=== PATIENT | female | born 1985 | race Caucasian/White ===

== ENCOUNTER 2023-09-16 08:24 | Outpatient (OUT) | payer OTHER, SELFPAY ==
[2023-09-16 11:16] LABS: Alanine Aminotransferase 24 U/L (14-59); Albumin Globulin Ratio 1.3; Albumin Level 3.8 g/dL (3.4-5.0); Alkaline Phosphatase 71 U/L (46-116); Anion Gap 12.9; Aspartate Amino Transferase 10 U/L (15-37); BUN Creatinine Ratio 20.6; Bilirubin Total 0.8 mg/dL (0.2-1.0); Carbon Dioxide 28.1 mmol/L (21.0-32.0); Chloride 102 mmol/L (98-107); Chol HDL Ratio 2.2; Cholesterol 157 mg/dL (<=200); Estimated GFR (African America >60 (>=60); Estimated GFR (Non-African Ame >60 (>=60); Glucose 79 mg/dL (74-106); HDL Cholesterol 72 mg/dL (40-60); Sodium 139 mmol/L (136-145); TSH W/ REFLEX FT4 1.511 uIU/mL (0.358-3.740); Total Protein 6.8 g/dL (6.4-8.2); Triglycerides 72 mg/dL (<=150); VLDL CHOLESTEROL 14.4 mg/dL
== END 2023-09-16 08:25 | disposition home or self-care (01) ==
PROVIDERS: PCP Nurse Practitioner Family; Visit Provider Nurse Practitioner Family
DX: Z00.00 Encounter for general adult medical examination without abnormal findings (principal); E66.9 Obesity, unspecified; Z13.220 Encounter for screening for lipoid disorders
CPT/HCPCS: 36415; 80053; 80061; 84443

== ENCOUNTER 2023-11-23 23:32 | Emergency (ER) | payer OTHER, SELFPAY ==
[2023-11-23 23:37] VITALS: BP 167/96; PULSE 62; TEMP 36.7; O2SAT 98; BMI 32.1
--- NOTE | 2023-11-23 23:42 | ED_ITS ---
HPI - Nausea/Vomiting/Diarrhea General Chief complaint: Nausea/Vomiting/Diarrhea Stated complaint: vomiting general weakness Time Seen by Provider: 11/23/23 23:33 Source: patient Mode of arrival: walk-in Limitations: no limitations History of Present Illness HPI Narrative: 38-year-old female presented to the emergency department for nausea and vomiting. She has been having the symptoms for about 24 hours. No diarrhea or fever. She has not been around anybody has been vomiting. She thinks she might have food poisoning. Related Data Home Medications ?Medication ?Instructions ?Recorded ?Confirmed bupropion HCl 150 mg 24 hr tablet, mg PO 11/23/23 extended release dextroamphetamine-amphetamine ER PO 11/23/23 30 mg 24hr capsule,extend release Previous Rx's ?Medication ?Instructions ?Recorded ondansetron 4 mg disintegrating 4 mg PO Q6H PRN nausea and 11/24/23 tablet vomiting #20 tabs Allergies Allergy/AdvReac Type Severity Reaction Status Date / Time No Known Drug Allergies Allergy Verified 11/23/23 23:42 Review of Systems ROS Narrative A ten point review of systems is negative except as noted above. Exam Narrative Exam Narrative: Nurses note and vital signs reviewed and patient is not hypoxic. General: The patient appears in no apparent distress. Skin: Warm, dry, no pallor noted. There is no rash noted. Head: Normocephalic, atraumatic Eye: Normal conjunctiva, no drainage Ears, Nose, Mouth, and Throat: oral mucosa is moist. Nares patent. Cardiovascular: Regular Rate and Rhythm Respiratory: Patient is in no distress, no accessory muscle use, lungs are clear to auscultation, no wheezing, rales or rhonchi Back: non-tender GI: Normal bowel sounds, no tenderness to palpation, no masses appreciated. No rebound, guarding, or rigidity noted. Musculoskeletal: The patient has no evidence of calf tenderness, no pitting edema, symmetrical pulses noted bilaterally Neurological: Awake and alert Psychiatric: Cooperative Constitutional Vital Signs, click to edit/add: Last Vital Signs Temp 98.1 F 11/23/23 23:37 Pulse 62 11/23/23 23:37 Resp 16 11/23/23 23:37 BP 167/96 H 11/23/23 23:37 Pulse Ox 98 11/23/23 23:37 O2 Del Method Room Air 11/23/23 23:37 Course Vital Signs Vital signs: Vital Signs Temperature 98.1 F 11/23/23 23:37 Pulse Rate 62 11/23/23 23:37 Respiratory Rate 16 11/23/23 23:37 Blood Pressure 167/96 H 11/23/23 23:37 Pulse Oximetry 98 11/23/23 23:37 Oxygen Delivery Method Room Air 11/23/23 23:37 Temperature 98.1 F 11/23/23 23:37 Pulse Rate 62 11/23/23 23:37 Respiratory Rate 16 11/23/23 23:37 Blood Pressure 167/96 H 11/23/23 23:37 Pulse Oximetry 98 11/23/23 23:37 Oxygen Delivery Method Room Air 11/23/23 23:37 MDM - Nausea/Vomiting/Diarrhea MDM Narrative Medical decision making narrative: Blood work is essentially. She is feeling improved after being given IV fluids and IV Zofran and is able to be discharged home. She is tolerating p.o. liquids. Treatment diagnosis and follow-up were discussed with the patient. Differential Diagnosis Differential diagnosis: Likely food poisoning, gastroenteritis and dehydration Lab Data Attestation: I reviewed the patient's lab results. Labs: Lab Results 11/23/23 Range/Units 23:50 WBC 12.5 H (4.0-11.0) 10^3/uL RBC 4.72 (4.20-5.40) 10^6/uL Hgb 14.1 (12.0-16.0) g/dL Hct 41.2 (36.0-48.0) % MCV 87.3 (81.0-99.0) fL MCH 29.9 (26.7-34.0) pg MCHC 34.2 (29.9-35.2) g/dL RDW 12.3 (11.0-15.0) % Plt Count 359 (150-450) 10^3/uL MPV 10.0 (9.5-13.5) fL Neut % (Auto) 84.0 H (43.0-75.0) % Lymph % (Auto) 10.8 L (20.5-60.0) % [place] % (Auto) 4.5 (1.7-12.0) % Eos % (Auto) 0.1 L (0.9-7.0) % Baso % (Auto) 0.2 (0.2-2.0) % Neut # (Auto) 10.5 H (1.4-6.5) 10^3/uL Lymph # (Auto) 1.4 (1.2-3.8) 10^3/uL [place] # (Auto) 0.6 (0.3-0.8) 10^3/uL Eos # (Auto) 0.0 (0.0-0.7) 10^3/uL Baso # (Auto) 0.0 (0.0-0.1) 10^3/uL Abs Immat Gran (auto) 0.05 H (0.00-0.03) 10^3/uL Imm/Tot Granulo (auto) 0.4 (0.0-0.5) % Sodium 139 (136-145) mmol/L Potassium 3.3 L (3.5-5.1) mmol/L Chloride 100 (98-107) mmol/L Carbon Dioxide 24.8 (21.0-32.0) mmol/L Anion Gap 17.5 BUN 13.0 (7.0-18.0) mg/dL Creatinine 0.77 (0.55-1.02) mg/dL Est GFR ( Amer) >60 (>=60) Est GFR (Non-Af Amer) >60 (>=60) BUN/Creatinine Ratio 16.9 Glucose 149 H (74-106) mg/dL Calcium 9.2 (8.5-10.1) mg/dL Discharge Plan Discharge Stand Alone Forms: Portal Instructions Chief Complaint: Nausea/Vomiting/Diarrhea Clinical Impression: Nausea and vomiting Patient Disposition: Home, Self-Care Time of Disposition Decision: 01:01 Condition: Good Mode of Transportation: Private Vehicle Prescriptions / Home Meds: New ondansetron 4 mg tablet,disintegrating 4 mg PO Q6H PRN (Reason: nausea and vomiting) Qty: 20 0RF No Action dextroamphetamine-amphetamine 30 mg capsule,extended release 24hr PO bupropion HCl 150 mg tablet extended release 24 hr PO Print Language: Kinyarwanda Instructions: Acute Nausea and Vomiting (ED) Referrals: Sandra Granda [employer] [Primary Care Provider] - 1 week
--- OUTSIDE RECORDS SUMMARY | 2023-11-23 23:42 | XMS_ITS | CCD ---
Author Organization [facility] Care Team Providers Care Document Imaging Manager Name Role Phone Kasey Arie Unavailable Unavailable Kasey Arie Unavailable Unavailable Danny Urena Unavailable DUNG HERNANDEZ Admitting Unavailable DUNG HERNANDEZ Attending Unavailable REQUEST, DR ROSALES LISTED Primary Care Unavaila DUNG Hassan Consulting Unavailable SOURAV, DR SAENZ Primary Care Unavailable REINECK, DR WILFREDO Ramirez Admitting Unavailabl e REINECK, DR WILFREDO Ramirez Attending Unavailabl e REINECK, DR WILFREDO Ramirez Consulting Unavailabl e READER, ELISEO Consulting Unavailable SOURAV, DR SAENZ Primary Care Unavailable HAY ., DR NIETO Admitting Unavailable HAY ., DR NIETO Attending Unavailable HAY ., DR NIETO Consulting Unavailable MISAEL ., DR DE LUNA Admitting Unavailable MISAEL ., DR DE LUNA Attending Unavailable HOUSE, DR SAENZ Primary Care Unavailable MISAEL ., DR DE LUNA Consulting Unavailable MISAEL ., DR DE LUNA Admitting Unavailable MISAEL ., DR DE LUNA Attending Unavailable HOUSE, DR SAENZ Primary Care Unavailable MISAEL ., DR DE LUNA Consulting Unavailable SAMUEL BRIDGES Attending Unavailable ALFRED VEGA Attending Unavailable SAMUEL BRIDGES Attending Unavailable Allergies Allergy Classification Reported Allergen(s) Allergy Type Date of Onset Reaction(s) Facility (1 source) A & D Drug allergy Unknown [facility] Other (1 source) bee venom Drug allergy (disorder) [facility] (1 source) A AND D Emollient Drug allergy (disorder) [facility] Medications Current Medications Medication Drug Class(es) Dates Sig (Normalized) Sig (Original) ibuprofen 800 mg oral tablet (2 sources) Nonsteroidal Anti-inflammatory Drug Start: 01-20-2021 take 1 tablet by mouth three times daily at mealtime as needed Ibuprofen 800 MG 1 tablet with food or milk as needed Orally Three times a day for 30 days Dec, Active Ibuprofen Active Problems Active Problems Problem Classification Problem Date Documented Da te Episodic/Chronic E Codes: Cut/pierceb (1 source) Contact with knife, initial encounter; Translations: [CONTACT WITH KNIFE INITIAL ENC] Onset: 09-06-2022 Episodic Open wounds of extremities (4 sources) Laceration without foreign body of left thumb without damage to nail, initial encounter; Translations: [LAC NO FB LT THUMB NO DMG NAIL INIT] Onset: 09-04-2022 Episodic Screening and history of mental health and substance abuse codes (1 source) Personal history of nicotine dependence; Translations: [PERSONAL HISTORY OF NICOTINE DEPEND] Onset: 09-06-2022 Episodic Past or Other Problems Problem Classification Problem Date Documented Date Episodic/Chronic E Codes: Fall (1 source) Unspecified fall, initial encounter; Translations: [UNSPECIFIED FALL INITIAL ENCOUNTER] Onset: 06-07-2022 Episodic E Codes: Unspecified (1 source) Activity, roller skating (inline) and skateboarding; Translations: [ACTV ROLLER SKATING SKATEBOARDING] Onset: 06-07-2022 Episodic Genitourinary symptoms and ill-defined conditions (3 sources) Dysuria; Translations: [DYSURIA] Onset: 10-01-2021 Episodic Immunizations and screening for infectious disease (1 source) Encounter for screening for human papillomavirus (HPV); Translations: [ENC SCREENING HUMAN PAPILLOMAVIRUS] Onset: 10-15-2021 Episodic Other endocrine disorders (4 sources) Endocrine disorder, unspecified; Translations: [ENDOCRINE DISORDER UNSPECIFIED] Onset: 03-27-2022 Episodic Other non-traumatic joint disorders (1 source) Pain in left wrist; Translations: [Acute pain of left wrist M25.532] Onset: 01-20-2021 Resolved: 01-20-2021 Episodic Other non-traumatic joint disorders (3 sources) Pain in right wrist; Translations: [PAIN IN RIGHT WRIST] Onset: 06-06-2022 Episodic Other screening for suspected conditions (not mental disorders or infectious disease) (4 sources) Encounter for screening for malignant neoplasm of cervix; Translations: [ENC SCREENING MALIG NEOPLASM CERV] Onset: 10-15-2021 Episodic Residual codes; unclassified (1 source) Acquired absence of both cervix and uterus; Translations: [ACQUIRED ABSENCE BOTH CERVIX AND UTERUS] Onset: 10-02-2021 Episodic Sprains and strains (2 sources) Unspecified sprain of left wrist, initial encounter; Translations: [Unspecified sprain of right wrist, initial encounter] Onset: 01-20-2021 Resolved: 01-20-2021 Episodic Urinary tract infections (1 source) Urinary tract infection, site not specified; Translations: [UTI SITE NOT SPECIFIED] Onset: 10-02-2021 Episodic Results Test Name Value Interpretation Reference Range Facil ity XR WRIST RT MIN 3 Von 2022 XR WRIST RT MIN 3 V HISTORY: Right wrist pain after a fall rollerskating last night. XR WRIST RT MIN 3 V: 06/06/2022 8:46 AM EST COMPARISON: None. FINDINGS: 3 views of right wrist were obtained. No fracture, dislocation, joint space narrowing, or soft tissue swelling is seen. IMPRESSION: No fracture or dislocation is seen. Electronically authenticated by: ELISEO PATEL Date: 2022-06-06 09:14 Normal [facility] TESTOSTERONE, FREE,DIRECT, T OTALon 03-31-2022 Free Testosterone(Direct) 2.8 pg/mL Normal 0.0-4.2 [facility] Comment on above: Result Comment: Perf ormed at: BN Performed By: #### T ESTFRD #### [facility] [address] [address] [address] Jorge Munoz Testosterone [Mass/Vol] 32 ng/dL Normal 8-60 [facility] Comment on above: Result Comment: Perf ormed at: CB Performed By: #### T ESTFRD #### [facility] [address] [address] [address] Jorge Munoz CORTISOLon 03-30-2022 Cortisol 11.0 ug/dL Normal [facility] Comment on above: Result Comment: Rosalino isol AM 6.2 - 19.4 Cortisol PM 2.3 - 11.9 Performed By: #### C ORTISO #### [facility] [address] [place] [address] Dr. Jorge Munoz ESTRONEon 03-30-2022 Estrone, Serum 116 pg/mL Normal 27-231 [facility] Comment on above: Result Comment: Rang e Adult (Premenopausal) 27 - 231 Menstrual Cycle (1-10 days) 19 - 149 Menstrual Cycle (11-20 days) 32 - 176 Menstrual Cycle (21-30 days) 37 - 200 Performed By: #### E MEL #### [facility] [address] [place], [place] [address] Dr. Jorge Munoz DHEA-SULFATEon 03-28-2022 DHEA-Sulfate 229.0 ug/dL Normal 57.3-279.2 [facility] Comment on above: Performed By: #### D HEMAGGIE ####[facility] [address] [place], [place] [address]DbDr. Jorge Munoz ESTRADIOLon 03-28-2022 Estradiol 278.0 pg/mL Normal [facility] Comment on above: Result Comment: Adul t Female: Follicular phase 12.5 - 166.0 Ovulation phase 85.8 - 498.0 Luteal phase 43.8 - 211.0 Postmenopausal <6.0 - 54.7 1st trimester 215.0 - >4300.0 [place] ECLIA methodology Performed By: #### E DAVON ####[facility] [address] [address]Dr. Jorge Munoz PROGESTERONEon 03-28-2022 Progesterone 13.9 ng/mL Normal [facility] Comment on above: Result Comment: Foll icular phase 0.1 - 0.9 Luteal phase 1.8 - 23.9 Ovulation phase 0.1 - 12.0 First trimester 11.0 - 44.3 Second trimester 25.4 - 83.3 Third trimester 58.7 - 214.0 Postmenopausal 0.0 - 0.1 Performed By: #### P INGE #### [facility] [address] [place], [place] [id number] Dr. Jorge Munoz SEX HORMONE-BINDING GLOBULIN on 03-28-2022 Sex Horm Binding Glob, Serum 66.0 nmol/L Normal 24.6-122.0 [facility] Comment on above: Performed By: #### S EXHBG #### [facility] [address] [id number] Jorge Munoz VITAMIN D 25 OHon 03-27-2022 VIT D 25-OH 31.2 ng/mL Normal [facility] Comment on above: Performed By: #### V ITAD #### [facility] [address] [address] [address] Jorge Munoz VIT D RANGES SEE BELOW Normal [facility] Comment on above: Result Comment: <20 ng/mL Vit D deficient 20 - <30 ng/mL Vit D insufficient 30 - 100 ng/mL Vit D sufficient >100 ng/mL Potential Toxicity Performed By: #### V ITAD #### [facility] [address] [place] [address] Dr. Jorge Munoz PAP ACOG PANEL 2: 30 to 65on 10-19-2021 . . Normal [facility] Comment on above: Result Comment: Perf ormed at: WB Performed By: #### [id number] #### [facility] [address] [place] [address] Dr. Jorge Munoz Age Gdln ACOG Testing 30-65 Normal [facility] Comment on above: Performed By: #### [id number] #### [facility] [address] [place] [address] Dr. Jorge Munoz DIAGNOSIS: Comment Normal [facility] Comment on above: Result Comment: NEGA TIVE FOR INTRAEPITHELIAL LESION OR MALIGNANCY. Performed at: WB Performed By: #### [id number] #### [facility] [address] [place] [address] Dr. Jorge Munoz HPV Aptima Negative Normal Negative [facility] Comment on above: Result Comment: This nucleic acid amplification test detects fourteen high-risk HPV types (16,18,31,33,35,39,45,51,52,56,58,59,66,68) without differentiation. Performed at: =G Performed By: #### 4 [id number] #### [facility] [address] [place] [address] Dr. Jorge Munoz Methodology: Comment Normal [facility] Comment on above: Result Comment: This liquid based ThinPrep(R) pap test was screened with the use of an image guided system. Performed at: WB Performed By: #### [id number] #### [facility] [address] [place] [address] Dr. Jorge Munoz Note: Comment Normal [facility] Comment on above: Result Comment: The Pap smear is a screening test designed to aid in the detection of premalignant and malignant conditions of the uterine cervix. It is not a diagnostic procedure and should not be used as the sole means of detecting cervical cancer. Both false-positive and false-negative reports do occur. . Performed at: WB Performed By: #### [id number] #### [facility] [address] [place] [address] Dr. Jorge Munoz Performed by: Comment Normal [facility] Comment on above: Result Comment: Alyson De La Cruz, Oil Lease Buyer (ASCP) Performed at: WB Performed By: #### [id number] #### [facility] [address] [place] [address] Dr. Jorge Munoz Specimen adequacy: Comment Normal [facility] Comment on above: Result Comment: Sati sfactory for evaluation. No endocervical component is identified. Performed at: WB Performed By: #### [id number] #### [facility] [address] [place] [address] Dr. Jorge Munoz ER URINE PROFILEon 2 Bilirubin Ql (U) Negative Normal NEGATIVE [facility] Comment on above: Performed By: #### PATRICK BIRDRO #### [facility] [address] [place] [address] Dr. Jorge Munoz Clarity (U) CLEAR Normal CLEAR [facility] Comment on above: Performed By: #### ALAN BIRDICRO #### [facility] [address] [place] [address] Dr. Jorge Munoz Color (U) LT. YELLOW Normal YELLOW [facility] Comment on above: Performed By: #### PATRICK BIRDRO #### [facility] [address] [place] [address] Dr. Jorge Munoz ERUAHD A micrscopic examination will be performed if indicated. Normal [facility] Comment on above: Performed By: #### PATRICK BIRDRO #### [facility] [address] [place] [address] Dr. Jorge Munoz Glucose Ql (U) Negative Normal NEGATIVE [facility] Comment on above: Performed By: #### Marvin HADDAD UMICRO #### [facility] [address] [address] [address] Jorge Munoz Hemoglobin Ql (U) MODERATE Abnormal NEGATIVE [facility] Comment on above: Performed By: #### Marvin HADDAD, UMICRO #### [facility] [address] [address] [address] Jorge Munoz Ketones Ql (U) Negative Normal NEGATIVE [facility] Comment on above: Performed By: #### Marvin HADDAD UMICRO #### [facility] [address] [place] [address] Dr. Jorge Munoz LEUKOCYTES TRACE Abnormal NEGATIVE [facility] Comment on above: Performed By: #### Marvin HADDAD UMICRO #### [facility] [address] [place] [address] Dr. Jorge Munoz Nitrite Ql (U) Negative Normal NEGATIVE [facility] Comment on above: Performed By: #### Marvin HADDAD UMICRO #### [facility] [address] [place] [address] Dr. Jorge Munoz pH (U) 6.0 [pH] Normal 5-9 [facility] Comment on above: Performed By: #### Marvin HADDAD UMICRO #### [facility] [address] [place] [address] Dr. Jorge Munoz SPEC GRAVITY 1.025 Normal 1.005-<=1.025 [facility] Comment on above: Performed By: #### Marvin HADDAD UMICRO #### [facility] [address] [place] [address] Dr. Jorge Munoz UA PROTEIN Negative Normal NEGATIVE/ TRACE [facility] Comment on above: Performed By: #### Marvin HADDAD UMICRO #### [facility] [address] [place] [address] Dr. Jorge Munoz UR MICRO IND INDICATED Normal [facility] Comment on above: Performed By: #### Marvin HADDAD UMICRO #### [facility] [address] [place] [address] Dr. Jorge Munoz Urobilinogen Qn (U) 0.2 {Darren'U}/dL Normal 0.2 - 1. 0 [facility] Comment on above: Performed By: #### Marvin HADDAD UMICRO #### [facility] [address] [place] [address] Dr. Jorge Munoz URINE MICROSCOPIC ONLYon BACTERIA NONE SEEN Normal NONE SEEN [facility] Comment on above: Performed By: #### Marvin HADDAD, UMICRO #### [facility] [address] [place] [address] Dr. Jorge Munoz Bacteria identified Cx Nom (U) NOT INDICATED Normal [facility] Comment on above: Performed By: #### Marvin HADDAD UMICRO #### [facility] [address] [place] [address] Dr. Jorge Munoz CAST NONE SEEN Normal NONE SEEN [facility] Comment on above: Performed By: #### Marvin HADDAD UMICRO #### [facility] [address] [place] [address] Dr. Jorge Munoz Crystals LM Nom (Urine sed) NONE SEEN Normal NONE SEEN [facility] Comment on above: Performed By: #### Marvin HADDAD UMICRO #### [facility] [address] [place] [address] Dr. Jorge Munoz Epithelial cells LM Ql (Urine sed) MANY Abnormal NONE SEEN /RARE [facility] Comment on above: Performed By: #### Marvin HADDAD UMICRO #### [facility] [address] [place] [address] Dr. Jorge Munoz MUCOUS TRACE Abnormal NONE SEEN [facility] Comment on above: Performed By: #### Marvin HADDAD UMICRO #### [facility] [address] [place] [address] Dr. Jorge Munoz RBC 20-50 Abnormal 0-2 [facility] Comment on above: Performed By: #### Marvin HADDAD UMICRO #### [facility] [address] [place] [address] Dr. Jorge Munoz WBC 0-2 Abnormal NONE SEEN [facility] Comment on above: Performed By: #### E DRU HADDAD #### [facility] [address] [address] [address] Jorge Munoz Vital Signs Date Time Vital Sign Value Performing Clinician Faci lity 01-20-2021 14:15-0400 Body height Danny Urena Other [facility] Other 01-20-2021 14:15-0400 Body mass index (BMI) [Ratio] 26.45 kg/m2 Danny Urena Other [facility] Other 01-20-2021 14:15040 Body weight 63.5 kg Danny Urena Other [facility] Other Encounters Encounter Date Encounter Type Care Provider Facility Start: 09-13-2023 End: 09-14-2023 ambulatory SAMUEL BRIDGES Not Available Start: 06-14-2023 End: 06-14-2023 ambulatory SAMUEL BRIDGES Not Available Start: 03-22-2023 End: 03-22-2023 ambulatory ALFRED VEGA Not Available Start: 09-04-2022 End: 09-04-2022 ambulatory DUNG HERNANDEZ Facility:[facility] Start: 06-06-2022 End: 06-06-[address] DANY BENJAMIN Facility:[facility] Start: 03-27-2022 End: 03-28-[address] CALIXTO DOUGLAS . Facility:[facility] Start: 10-15-2021 End: 10-15-[address] CALIXTO DOUGLAS . Facility:[facility] Start: 10-01-2021 End: 10-01-[address] DANY BENJAMIN Facility:[facility] Start: 01-20-2021 Office outpatient ne w 30 minutes Danny Mckenna [facility] Start: 08-25-2017 End: 08-26-2017 Ambulatory Arie Parks Facility:[id number] Payers Date Payer Category Payer Unknown [id number] 2.16.84 [id number] 1984 Unknown [id number] 2.16.84 [id number] 1984 Unknown [id number] 2.16.84 [id number] 1984 Unknown [id number] 2.16.84 [id number] 1984 Unknown [id number] 2.16.84 [id number] 1984 Unknown [id number] 2.16.84 [id number] 1984 Unknown [id number] 2.16.84 [id number] 1984 Unknown [id number] 1959 Unknown [id number]. [id number] Social History Date Type Detail Facility Sex Assigned At [facility] Other Evaluation note 01-20-2021 Note Date & Type Note Facility 01-20-2021 Evaluation note Encounter Date Diagnosis Assessment Notes Dec, Acute pain of left wrist (ICD-10 - M25.532) Dec, Sprain of left wrist, initial encounter (ICD-10 - S63.502A) The patient appears to have suffered a wrist sprain. We will allow progressive gentle wrist motion as pain allows. We discussed the importance of icing and elevation of the arm above the heart to prevent swelling. We discussed that this injury will most likely cause pain for many weeks. Instructed on appropriate use of splinting during healing period. Instructed patient to continue use of thumb spica splint. If no improvement with conservative treatment, may consider MRI for further evaluation. [facility] Other History general Narrative - Reported Note Date & Type Note Facility History general Narrative - Reported Type Medical History uturus cancer Surgical History hysterectomy Surgical History tonsillectomy Hospitalization History childbirth Hospitalization History see surgical hx [facility] Other Summary Purpose Family History No Family History Records FoundNo Family History Records FoundNo Family History Records Found Advance Directives No Advanced Directives Records FoundNo Advanced Directives Records FoundNo Advanced Directives Records Found Additional Source Comments INFORMATION SOURCE (unrecogn ized section and content) DATE CREATED AUTHOR 10/13/2017 Shalom Padilla [facility] DATE CREATED AUTHOR AUTHOR'S ORGANIZ ATION 09/06/2022 [facility] DATE CREATED AUTHOR AUTHOR'S ORGANIZ ATION 09/18/2023 [facility] EPIC REASON FOR VISIT (unrecogniz ed section and content) Left Wrist Injury FOR RECORDS PERTAINING TO PATIENTS WHO ARE OR HAVE BEEN ENROLLED IN A CHEMICAL DEPENDENCY/SUBSTANCEABUSE PROGRAM, SOME INFORMATION MAY BE OMITTED. This clinical summary was aggregated from multiple sources. Caution should be exercised in using it in the provision of clinical care. This summary normalizes information from multiple sources, and as a consequence, information in this document may materially change the coding, format and clinical context of patient data. In addition, data may be omitted in some cases. CLINICAL DECISIONS SHOULD BE BASED ON THE PRIMARY CLINICAL RECORDS. [facility]. provides no warranty or guarantee of the accuracy or completeness of information in this document.
[2023-11-23] MEDS: ONDANSETRON PF 4 MG/2 ML VIAL IV (23:55)
[2023-11-23] MEDS: 0.9 % SODIUM CHLORIDE 1,000 ML 1000 ML IV (23:55)
[2023-11-23 23:56] LABS: Basophils Percent Auto 0.2 % (0.2-2.0); Eosinophils Percent Auto 0.1 % (0.9-7.0); Hematocrit 41.2 % (36.0-48.0); Hemoglobin 14.1 g/dL (12.0-16.0); Immature Granulocytes Abs Auto 0.05 10^3/uL (0.00-0.03); Immature Granulocytes Pct Auto 0.4 % (0.0-0.5); Lymphocytes Absolute Auto 1.4 10^3/uL (1.2-3.8); Lymphocytes Percent Auto 10.8 % (20.5-60.0); Mean Corpuscular HGB Conc 34.2 g/dL (29.9-35.2); Mean Corpuscular Hemoglobin 29.9 pg (26.7-34.0); Mean Corpuscular Volume 87.3 fL (81.0-99.0); Monocytes Absolute Auto 0.6 10^3/uL (0.3-0.8); Monocytes Percent Auto 4.5 % (1.7-12.0); Neutrophils Absolute Auto 10.5 10^3/uL (1.4-6.5); Platelet Count 359 10^3/uL (150-450); Red Blood Count 4.72 10^6/uL (4.20-5.40); Red Cell Distribution Width 12.3 % (11.0-15.0); White Blood Count 12.5 10^3/uL (4.0-11.0)
[2023-11-24 00:07] LABS: Anion Gap 17.5; BUN Creatinine Ratio 16.9; Calcium 9.2 mg/dL (8.5-10.1); Carbon Dioxide 24.8 mmol/L (21.0-32.0); Chloride 100 mmol/L (98-107); Estimated GFR (African America >60 (>=60); Estimated GFR (Non-African Ame >60 (>=60); Glucose 149 mg/dL (74-106); Potassium 3.3 mmol/L (3.5-5.1); Sodium 139 mmol/L (136-145)
== END 2023-11-24 01:11 | disposition home or self-care (01) ==
PROVIDERS: Emergency Provider Emergency Medicine; PCP Nurse Practitioner Family
DX: R11.2 Nausea with vomiting, unspecified (principal)
CPT/HCPCS: 36415; 80048; 85025; 96361; 96374; 99284; J2405

== ENCOUNTER 2024-12-06 12:40 | Outpatient (REF) | payer OTHER, SELFPAY ==
--- OUTSIDE RECORDS SUMMARY | 2024-12-03 14:00 | XMS_ITS | Encounter Summary ---
Author Organization [facility] Healthcare Address [address] [place] [address] Care Team Providers Care Parole Director Name Role Phone Angie Bobby MD Primary Care Provider [phone] Sandra Granda NP Unavailable [phone] Sandra Granda NP Unavailable [phone] Reason for Visit * Reason Comments Med Refill Encounter Details Date Type Department Care Team (Latest Contact Info) Description 12/03/2024 2:00 PM EDT [facility] [address] [place] [address] Sandra Granda NP [address] [place] [address] ADHD (attention deficit hyperactivity disorder), inattentive type (Primary Dx) Social History Tobacco Use Types Packs/Day Years Used Date Smoking Tobacco: Former Cigarettes Q uit: 2018 Smokeless Tobacco: Never Alcohol Use Standard Drinks/Week Comments Not Currently 0 (1 standard drink = 0.6 oz pure alcohol) caffeine intake: occassionally PHQ-2 Answer Date Recorded Patient Health Questionnaire-2 Score 0 12/03/2024 Comments Unknown Sex and Gender Information Value Date Recorded Sex Assigned at Not on file Legal Sex Female 11:47 PM EDT Gender Identity Not on file Sexual Orientation Not on file documented as of this encounter Last Filed Vital Signs Vital Sign Reading Time Taken Comments Blood Pressure 114/78 12/03/2024 2:00 PM EDT Pulse 76 12/03/2024 2:00 PM EDT Temperature - - Respiratory Rate - - Oxygen Saturation 95% 12/03/2024 2:00 PM EDT Inhaled Oxygen Concentration - - Weight 79.8 kg (176 lb) 12/03/2024 2:00 PM EDT Height - - Body Mass Index 32.19 02/07/2024 2:33 PM EDT documented in this encounter Functional Status * Over the past 2 weeks, how often have you been bothered by any of the following problems? Question Answer Date of Assessment Author Little interest or pleasure in doing things Not at all 12/03/2024 2:01 PM EDT Yue Carreon M A Feeling down, depressed, or hopeless Not at all 12/03/2024 2:01 PM EDT Yue Carreon M A Patient Health Questionnaire -2 Score 0 12/03/2024 2:01 PM EDT Yue Carreon M A documented as of this encounter Progress Notes * Sandra Granda NP - 12/03/2024 2:00 PM EDTAssociated Problem(s): ADHD (attention deficit hyperactivity disorder), inattentive type -stable with current medication regimen. PDMP reviewed. Follow up in 3 months. * Sandra Granda NP - 12/03/2024 2:00 PM EDT Images from the original note were not included. Subjective Patient ID: Nasreen Hackett is a 39 y.o. female who presents for Med Refill. HPI History of Present Illness The patient presents for evaluation of sleep issues and increased appetite. She reports occasional difficulty in falling asleep, which she manages with melatonin or gummies. Her appetite remains robust, although she expresses a desire for it to be less. She has been engagingin physical activities such as biking and kayaking, particularly during her summer vacation in 10/2024. She is not experiencing any chest pain or shortness of breath. She is seeking advice on how to control her appetite, attributing her eating habits to boredom from sitting in an office all day. She avoids snacking and maintains a healthy diet, including cucumbers. She also mentions that she no longer has a uterus. 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 Physical Exam Vitals reviewed. HENT: Head: Normocephalic and atraumatic. Nose: Nose normal. Mouth/Throat: Mouth: Mucous membranes are moist. Eyes: Pupils: Pupils are equal, round, and reactive to light. Cardiovascular: Rate and Rhythm: Normal rate and regular rhythm. Pulses: Normal pulses. Heart sounds: Normal heart sounds. Pulmonary: Effort: Pulmonary effort is normal. Breath sounds: Normal breath sounds. Musculoskeletal: Cervical back: Normal range of motion and neck supple. Right lower leg: No edema. Left lower leg: No edema. Skin: General: Skin is warm and dry. Capillary Refill: Capillary refill takes less than 2 seconds. Findings: No rash. Neurological: General: No focal deficit present. Mental Status: She is alert and oriented to person, place, and time. Physical Exam Assessment & Plan ADHD (attention deficit hyperactivity disorder), inattentive type -stable with current medication regimen. PDMP reviewed. Follow up in 3 months. Assessment & Plan documented in this encounter Plan of Treatment Upcoming Encounters Date Type Department Care Team (Late st Contact Info) Description 12/10/2025 10:00 AM EDT Procedure Visit [facility] [address] [address] Yossi Lawton DO [address] [facility] [place] [address] documented as of this encounter Visit Diagnoses Diagnosis ADHD (attention deficit hyperactivity disorder), inattentive type- Primary documented in this encounter Additional Health Concerns Assessment Noted Time PHQ-9 Depression Total Score: 1 07/05/19 25 2:43 PM EDT documented as of this encounter Care Teams Parole Director Relationship Specialty Start Date End Date Angie Bobby MD [address] [facility] [place], [place] [id number] PCP - General Family Medicine 05/31/23 Sandra Granda NP [address] [facility] [place], [place] [id number] PCP - [facility] 01/24/24 Sandra Granda NP [address] [facility] [place], [place] [id number] Nurse Practitioner Family Medicine 05/31/23 documented as of this encounter
--- OUTSIDE RECORDS SUMMARY | 2024-12-06 08:30 | XMS_ITS | Encounter Summary ---
Author Organization [facility] Address [address] [place] [address] Care Team Providers Care Test Engine Mechanic Name Role Phone Angie Bobby MD Primary Care Provider [phone] Sandra Granda NP Unavailable [phone] Sandra Granda NP Unavailable [phone] Reason for Visit * Reason Comments Well Women Visit Encounter Details Date Type Department Care Team (Late st Contact Info) Description 12/06/2024 8:30 AM EDT [facility] [address] [place] [address] Yossi Lawton DO [address] [facility] [place] [address] Well woman exam with routine gynecological exam; Encounter for screening mammogram for malignant neoplasm of breast; Mixed stress and urge urinary incontinence Social History Tobacco Use Types Packs/Day Years [...] on file documented as of this encounter Progress Notes * Sangeetha Baldwin LPN - 12/06/2024 8:30 AM EDT Reason for Appointment: Patient ID: Nasreen Hackett is a 39 y.o. female who presents for Well Women Visit Patient presents today for Annual Exam. 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 12/23/2022 S/P hysterectomy 12/23/2022 ADHD (attention deficit hyperactivity disorder), inattentive type 12/23/2022 Obesity (BMI 30.0-34.9) 06/14/2023 Resolved Ambulatory Problems Diagnosis Date Noted No Resolved Ambulatory Problems Past Medical History: Diagnosis Date Anxiety Cancer (HCC) Excessive hair growth Fatigue Herpes Night sweats HISTORY PAST MEDICAL HISTORY SOCIAL HISTORY Past Medical History: Diagnosis Date Anxiety Cancer (HCC) fallopian tube Excessive hair growth Fatigue Herpes Night sweats Social History Tobacco Use Smoking status: Former Current packs/day: 0.00 Types: Cigarettes Quit date: 2018 Years since quittin.6 Smokeless tobacco: Never Vaping Use Vaping status: Never Used Substance Use Topics Alcohol use: Not Currently Comment: caffeine intake: occassionally Drug use: Yes Types: Marijuana Comment: smokes occasionally. FAMILY HISTORY No family history on file. SURGICAL HISTORY Past Surgical History: Procedure Laterality Date HYSTERECTOMY fallopian tube cancer TONSILLECTOMY TUBAL LIGATION REVIEW OF SYSTEMS Review of Systems: Review of Systems Constitutional: Negative. HENT: Negative. Eyes: Negative. Respiratory: Negative. Cardiovascular: Negative. Gastrointestinal: Negative. Genitourinary: Negative. Musculoskeletal: Negative. Skin: Negative. Neurological: Negative. All other systems reviewed and are negative. Hematological: Negative. Endocrine: Negative. Allergic/Immunologic: Negative. OBJECTIVE Objective: Physical Exam Constitutional: Appearance: Normal appearance. She is well-developed. Genitourinary: Vulva normal. Vaginal cuff intact. Cervix is absent. Uterus is absent. Breasts: Breasts are soft. Right: Normal. Left: Normal. Cardiovascular: Rate and Rhythm: Normal rate and regular rhythm. Abdominal: General: Bowel sounds are normal. There is no distension. Palpations: Abdomen is soft. Tenderness: There is no abdominal tenderness. There is no guarding or rebound. Musculoskeletal: General: No swelling. Normal range of motion. Right lower leg: No edema. Left lower leg: No edema. Neurological: Mental Status: She is alert and oriented to person, place, and time. Skin: General: Skin is warm and dry. Psychiatric: Mood and Affect: Mood normal. Behavior: Behavior normal. Vitals and nursing note reviewed. Exam conducted with a doctor osteopathic present. Vitals: Estimated body mass index is 32.19 kg/m?? as calculated from the following: Height as of 02/07/24: 5' 2 . Weight as of 12/03/24: 176 lb. BP: No LMP recorded. ASSESSMENT & PLAN ICD-10-CM 1. Well woman exam with routine gynecological exam Z01.419 THIN PREP TIS PAP AND HR HPV DNA 2. Encounter for screening mammogram for malignant neoplasm of breast Z12.31 Annual: Patient presents today for an annual exam. Patient states she is doing well and has no complaints. Pap was obtained without difficulty. Follow Up: Patient is to return in one year for annual unless needed otherwise. Patient to be referred to [facility] for urinary leakage. Documented by Sangeetha Baldwin LPN on behalf of: Yossi Lawton DO documented in this encounter Plan of Treatment Upcoming Encounters Date Type Department Care Team (Late st Contact Info) Description 12/10/2025 10:00 AM EDT Procedure Visit [facility] [address] [place] [phone] Yossi Lawton DO [address] [place] [address] Scheduled Orders Name Type Priority Associated Diagnoses Orde r Schedule THIN PREP TIS PAP AND HR HPV DNA Pathology and Cytology Routine Well woman exam with routine gynecological exam Ordered: 12/06/2024 documented as of this encounter Visit Diagnoses Diagnosis Well woman exam with routine gynecological exam Routine gynecological examination Encounter for screening mammogram for malignant neoplasm of breast Mixed stress and urge urinary incontinence Mixed incontinence urge and stress (male)(female) documented in this encounter Additional Health Concerns Assessment Noted Time PHQ-9 Depression Total Score: 1 07/05/19 25 2:43 PM EDT documented as of this encounter Care Teams Test Engine Mechanic Relationship Specialty Start Date End Date Angie Bobby MD [address] [facility] [place], [place] [phone] PCP - General Family Medicine 05/31/23 Sandra Granda NP [address] [place] [address] PCP - [facility] 01/24/24 Sandra Granda NP [address] [place] [address] Nurse Practitioner Family Medicine 05/31/23 documented as of this encounter
--- OUTSIDE RECORDS SUMMARY | 2024-12-06 12:49 | XMS_ITS | Encounter Summary ---
Author Organization [facility] Address [address] [facility] [place] [address] Care Team Providers Care Biochemical Development Engineer Name Role Phone Angie Bobby MD Primary Care Provider [phone] Sandra Granda NP Unavailable [phone] Sandra Granda NP Unavailable [phone] Encounter Details Date Type Department Care Team (Late Contact Info) Description 12/06/2024 Bamboo flowsheet [facility] [address] [place] [address] Yossi Lawton DO [address] [place], [facility] Social History Tobacco Use Types Packs/Day Years [...] on file documented as of this encounter Plan of Treatment Upcoming Encounters Date Type Department Care Team (Late Contact Info) Description 12/10/2025 10:00 AM EDT Procedure Visit [facility] [address] [facility] [place] [address] Yossi Lawton DO [address] [place], [facility] documented as of this encounter Visit Diagnoses Not on filedocumented in this encounter Additional Health Concerns Assessment Noted Time PHQ-9 Depression Total Score: 1 07/05/19 25 2:43 PM EDT documented as of this encounter Care Teams Biochemical Development Engineer Relationship Specialty Start Date End Date Angie Bobby MD [address] [place] [address] PCP - General Family Medicine 05/31/23 Sandra Granda NP [address] [facility] [place] [address] PCP - [facility] 01/24/24 Sandra Granda NP [address] [place] [address] Nurse Practitioner Family Medicine 05/31/23 documented as of this encounter
--- OUTSIDE RECORDS SUMMARY | 2024-12-06 12:49 | XMS_ITS | Clinical Summary ---
Author Organization [facility] Healthcare Address [address] [place] [address] Care Team Providers Care Manager University Name Role Phone Angie Bobby MD Primary Care Provider [phone] Sandra Granda NP Unavailable [phone] Sandra Granda NP Unavailable [phone] Allergies Active Allergy Reactions Criticality Noted Date Comments Lanolin-Petrolatum 12/06/2024 Medications valACYclovir (Valtrex) 500 MG tablet 4 Active amphetamine-dextr oamphetamine (Adderall) 30 MG tabletIndications :ADHD (attention deficit hyperactivity disorder), inattentive type Take 1 tablet (30 mg) by mouth in the morning and 1 tablet (30 mg) before bedtime. 60 tablet 5 Active BERBERINE Daily Active amphetamine-dextr oamphetamine XR (Adderall XR) 30 MG 24 hr capsuleIndication s:ADHD (attention deficit hyperactivity disorder), inattentive type Take 1 capsule (30 mg) by mouth in the morning. Do not crush or chew. 30 capsule 5 11/27/19 25 Discontinu ed(Therapy completed) Active Problems Problem Noted Date Diagnosed Date Obesity (BMI 30.0-34.9) 06/14/2023 Hormone imbalance 12/23/2022 Midline cystocele 12/23/2022 History of malignant neoplas m of fallopian tube in adulthood 12/23/2022 Overview (12/23/2022): f/u with clinical science liaison as indicated S/P hysterectomy 12/23/2022 Overview (12/23/2022): completed for fallopian tube cancer; obtain prior records ADHD (attention deficit hype ractivity disorder), inattentive type 12/23/2022 Overview (12/23/2022): discussed risks/benefits of medication and agreed to trial of dexmethylphenidate, return every 3mo for monitoring while taking controlled medication Assessment & Plan (12/03/2024 4:56 PM EDT): -stable with current medication regimen. PDMP reviewed. Follow up in 3 months. Assessment & Plan (06/14/2023 6:19 PM EST): Discussed timing with adderall medication, recommend taking it a little later in the morning, taking it to early , it's wearing off too soon. Add wellbutrin to regimen. Controlled substance agreement signed today in office. Encounters Date Type Department Care Team Description 12/06/2024 8:30 AM EDT Office Visit [facility] [place] [address] Yossi Lawton, Well woman exam with routine gynecological exam; Encounter for screening mammogram for malignant neoplasm of breast; Mixed stress and urge urinary incontinence 12/06/2024 Telephone [facility] [address] [place], [place] [address] [place] [address] Sangeetha Baldwin LPN 12/06/2024 Bamboo flowsheet [facility] [place] [address] Yossi Lawtno DO 12/03/2024 2:00 PM EDT [facility] [address] [place] [address] Sandra Granda NP ADHD (attention deficit hyperactivity disorder), inattentive type (Primary Dx) 12/03/2024 [facility] [address] [place] [address] Sandra Granda NP 12/03/2024 Travel 11/26/[address] [facility] [address] [place] [address] Angie Bobby MD ADHD (attention deficit hyperactivity disorder), inattentive type 10/22/2024 [address]ill [facility] [address] [place] [address] Angie Bobby MD ADHD (attention deficit hyperactivity disorder), inattentive type 10/10/2024 9:00 AM EDT Ancillary Procedure [facility] [address] [facility] [address] [place] [address] Breast screening; Encounter for screening mammogram for malignant neoplasm of breast 10/10/2024 Results Follow-Up [facility] [address] [place] [address] Sandra Granda NP Bilateral screening mammogram with tomosynthesis 10/10/2024 [address]phone [facility] [address] [place] [address] Angie Bobby MD 10/10/2024 Travel 09/28/2024 [address]ill [facility] [address] [place] [address] Angie Bobby MD ADHD (attention deficit hyperactivity disorder), inattentive type from Last 3 Months Family History Relation Name Status Comments Father Maternal Grandfather Alive Maternal Grandmother Alive Mother Alive Paternal Grandfather Alive Paternal Grandmother Sibling Alive Social History Tobacco Use Types Packs/Day Years Used Date Smoking Tobacco: Former Cigarettes Q uit: 2018 Smokeless Tobacco: Never Tobacco Cessation:Counseling Given: Not Answered Alcohol Use Standard Drinks/Week Comments Not Currently 0 (1 standard drink = 0.6 oz pure alcohol) caffeine intake: occassionally PHQ-2 Answer Date Recorded Patient Health Questionnaire-2 Score 0 12/03/2024 Comments Unknown Sex and Gender Information Value Date Recorded Sex Assigned at Not on file Legal Sex Female 11:47 PM EDT Gender Identity Not on file Sexual Orientation Not on file Last Filed Vital Signs Vital Sign Reading Time Taken Comments Blood Pressure 114/78 12/03/2024 2:00 PM EDT Pulse 76 12/03/2024 2:00 PM EDT Temperature 36.2 C (97.2 F) 07/04/2024 2:35 PM EDT Respiratory Rate 18 03/22/2023 1:33 PM EST Oxygen Saturation 95% 12/03/2024 2:00 PM EDT Inhaled Oxygen Concentration - - Weight 79.8 kg (176 lb) 12/03/2024 2:00 PM EDT Height 157.5 cm (5' 2 ) 02/07/2024 2:33 PM EDT Body Mass Index 32.19 02/07/2024 2:33 PM EDT Plan of Treatment Upcoming Encounters Date Type Department Care Team (Late st Contact Info) Description 12/10/2025 10:00 AM EDT Procedure Visit [facility] [address] [facility] [address] Yossi Lawton DO [address] [facility] [place] [address] Health Maintenance Due Date Last Done Comments Influenza Vaccine (#1) 2024 Mammogram 10/10/2025 10/10/2024 Procedures Procedure Name Priority Date/Time Associated Diagnosis Comments BI MAMMOGRAM SCREENING TOMOSYNTHESIS BILATERAL Routine 10/10/2024 9:07 AM EDT Breast screening Encounter for screening mammogram for malignant neoplasm of breast from Last 3 Months Results * Bilateral screening mammogram with tomosynthesis (10/10/2024 9:07 AM EDT) Anatomical Region Laterality Modality Breast Bilateral Mammography 10/10/2024 1:02 PM EDT Impressions 10/10/2024 1:06 PM EDT Impression: No specific evidence of malignancy seen in either breast. BIRADS 2 - Benign Findings DENSITY: The breasts are heterogeneously dense, which may obscure small masses. FOLLOW-UP: Routine Screening Mammogram ELECTRONICALLY SIGNED BY: Joshua Chung M.D. Narrative 10/10/2024 1:06 PM EDT Examination: BI MAMMOGRAM SCREENING TOMOSYNTHESIS BILATERAL Clinical History: screenng bess Technique: Screening digital mammography study of both breasts was performed with 2-D and 3-D tomosynthesis imaging. No prior study available for comparison. Findings: There is no evidence of dominant spiculated mass, grouped microcalcifications, or skin thickening which would be suggestive of malignancy. Axillary lymph nodes including partially visualized lymph node are noted on the left which appear grossly unremarkable. Procedure Note Joshua Chung MD - 10/10/2024 Examination: BI MAMMOGRAM SCREENING TOMOSYNTHESIS BILATERAL Clinical History: screenng bess Technique: Screening digital mammography study of both breasts wasperformed with 2-D and 3-D tomosynthesis imaging. No prior study availablefor comparison. Findings: There is no evidence of dominant spiculated mass, groupedmicrocalcifications, or skin thickening which would be suggestive ofmalignancy. Axillary lymph nodes including partially visualized lymph node are notedon the left which appear grossly unremarkable. IMPRESSION: Impression: No specific evidence of malignancy seen in either breast. BIRADS 2 - Benign Findings DENSITY: The breasts are heterogeneously dense, which may obscure smallmasses. FOLLOW-UP: Routine Screening Mammogram ELECTRONICALLY SIGNED BY: Joshua Chung M.D. Sandra Granda CORPORATE CONSULTANT IMG BI PROCEDURES Final Result from Last 3 Months Insurance [employer] Care Teams Manager University Relationship Specialty Start Date End Date Anige Bobby MD [address] [facility] [place], [place] [id number] PCP - General Family Medicine 05/31/23 Sandra Granda NP [address] [facility] [place], [place] [phone] PCP - [facility] 01/24/24 Sandra Granda NP [address] [facility] [place], [place] [phone] Nurse Practitioner Family Medicine 05/31/23
--- OUTSIDE RECORDS SUMMARY | 2024-12-06 12:49 | XMS_ITS | Encounter Summary ---
Author Organization [facility] Address [address] [place] [address] Care Team Providers Care Asian Studies Program Chair Name Role Phone Angie Bobby MD Primary Care Provider [phone] Sandra Granda NP Unavailable [phone] Sandra Granda NP Unavailable [phone] Encounter Details Date Type Department Care Team (Late st Contact Info) Description 12/06/2024 Telephone [facility] [address] [place] [address] Sangeetha Bladwin LPN Social History Tobacco Use Types Packs/Day Years [...] on file documented as of this encounter Miscellaneous Notes * Telephone Encounter - Sangeetha Baldwin LPN - 12/06/2024 8:57 AM EDT Patient to be referred to [facility] for urinary leakage documented in this encounter Plan of Treatment Upcoming Encounters Date Type Department Care Team (Late st Contact Info) Description 12/10/2025 10:00 AM EDT Procedure Visit [facility] [address] [place] [address] Yossi Lawton, [address] [place] [address] documented as of this encounter Visit Diagnoses Not on filedocumented in this encounter Additional Health Concerns Assessment Noted Time PHQ-9 Depression Total Score: 1 07/05/19 25 2:43 PM EDT documented as of this encounter Care Teams Asian Studies Program Chair Relationship Specialty Start Date End Date Angie Bobby MD [address] [place], [place] [phone] PCP - General Family Medicine 05/31/23 Sandra Granda NP [address] [place], [place] [phone] PCP - [facility] 01/24/24 Sandra Granda NP [address] [place], [place] [phone] Nurse Practitioner Family Medicine 05/31/23 documented as of this encounter
--- OUTSIDE RECORDS SUMMARY | 2024-12-06 12:49 | XMS_ITS | Encounter Summary ---
Author Organization [facility] Healthcare Address [address] [facility] [place] [address] Care Team Providers Care Seat Scooper Machine Name Role Phone Angie Bobby MD Primary Care Provider Sandra Granda NP Unavailable [phone] Sandra Granda NP Unavailable [phone] Encounter Details Date Type Department Care Team (Latest Contact Info) Description 10/10/2024 Results Follow-Up [facility] Family Medicine [address] [place] [address] Sandra Granda NP [address] [place], [place] [id number] Bilateral screening mammogram with tomosynthesis Social History Tobacco Use Types Packs/Day Years Used Date Smoking Tobacco: Former Cigarettes Q uit: 2018 Smokeless Tobacco: Never Alcohol Use Standard Drinks/Week Comments Not Currently 0 (1 standard drink = 0.6 oz pure alcohol) caffeine intake: occassionally PHQ-2 Answer Date Recorded Patient Health Questionnaire-2 Score 0 07/04/2024 Comments Unknown Sex and Gender Information Value Date Recorded Sex Assigned at Not on file Legal Sex Female 11:47 PM EDT Gender Identity Not on file Sexual Orientation Not on file documented as of this encounter Plan of Treatment Upcoming Encounters Date Type Department Care Team (Late st Contact Info) Description 12/10/2025 10:00 AM EDT Procedure Visit [facility] [address] [place] [address] Yossi Lawton DO [address] [place] [address] documented as of this encounter Visit Diagnoses Not on filedocumented in this encounter Additional Health Concerns Assessment Noted Time PHQ-9 Depression Total Score: 1 07/05/19 25 2:43 PM EDT documented as of this encounter Care Teams Seat Scooper Machine Relationship Specialty Start Date End Date Angie Bobby MD [address] [place], [place] [id number] PCP - General Family Medicine 05/31/23 Sandra Granda NP [address] [place], [place] [id number] PCP - [facility] 01/24/24 Sandra Granda NP [address] [place] [address] Nurse Practitioner Family Medicine 05/31/23 documented as of this encounter
--- OUTSIDE RECORDS SUMMARY | 2024-12-06 12:49 | XMS_ITS | Encounter Summary ---
Author Organization [facility] Address [address] [place] [address] Care Team Providers Care Furniture Repairer Name Role Phone Angie Bobby MD Primary Care Provider [phone] Sandra Granda NP Unavailable [phone] Sandra Granda NP Unavailable [phone] Encounter Details Date Type Department Care Team (Latest Contact Info) Description 12/03/2024 Travel Social History Tobacco Use Types Packs/Day Years [...] on file documented as of this encounter Functional Status * Over the [...] M A documented as of this encounter Plan of Treatment Upcoming Encounters Date Type Department Care Team (Late st Contact Info) Description 12/10/2025 10:00 AM EDT Procedure Visit JULIAN BARRAZA [address] [place] [address] [place] [address] Yossi Lawton, [address] [place] [address] documented as of this encounter Visit Diagnoses Not on filedocumented in this encounter Additional Health Concerns Assessment Noted Time PHQ-9 Depression Total Score: 1 07/05/19 25 2:43 PM EDT documented as of this encounter Care Teams Furniture Repairer Relationship Specialty Start Date End Date Angie Bobby MD [address] [place], [place] [id number] PCP - General Family Medicine 05/31/23 Sandra Granda NP [address] [place], [place] [id number] PCP - [facility] 01/24/24 Sandra Granda NP [address] [place], [place] [phone] Nurse Practitioner Family Medicine 05/31/23 documented as of this encounter
--- OUTSIDE RECORDS SUMMARY | 2024-12-06 12:49 | XMS_ITS | Encounter Summary ---
Author Organization [facility] Address [address] [facility] [place] [address] Care Team Providers Care Global Vp Creative + Content Marketing Name Role Phone Angie Bobby MD Primary Care Provider Sandra Granda NP Unavailable [phone] Sandra Granda NP Unavailable [phone] Encounter Details Date Type Department Care Team (Late st Contact Info) Description 12/03/2024 [facility] [address] [place] [address] Sandra Granda NP [address] [place], [place] [id number] Social History Tobacco Use Types Packs/Day Years [...] 12/10/2025 10:00 AM EDT Procedure Visit [facility] [address] [facility] [address] [address] [place] [address] Yossi Lawton DO [address] [facility] [address] [place], [place] [id number] documented as of this encounter Visit Diagnoses Not on filedocumented in this encounter Additional Health Concerns Assessment Noted Time PHQ-9 Depression Total Score: 1 07/05/19 25 2:43 PM EDT documented as of this encounter Care Teams Global Vp Creative + Content Marketing Relationship Specialty Start Date End Date Angie Bobby MD [address] [place] [address] PCP - General Family Medicine 05/31/23 Sandra Granda NP [address] [facility] [place] [address] PCP - [facility] 01/24/24 Sandra Granda NP [address] [facility] [place] [address] Nurse Practitioner Family Medicine 05/31/23 documented as of this encounter
--- OUTSIDE RECORDS SUMMARY | 2024-12-06 12:49 | XMS_ITS | Encounter Summary ---
Author Organization [facility] Address [address] [place] [address] Care Team Providers Care Assembler Liquid Center Name Role Phone Angie Bobby MD Primary Care Provider Sandra Granda SOLAR ENERGY SALES SPECIALIST Unavailable [phone] La Nena Quintanilla DO Unavailable [phone] Sandra Granda SOLAR ENERGY SALES SPECIALIST Unavailable [phone] Encounter Details Date Type Department Care Team (Late st Contact Info) Description 10/10/2023 Orders Only [facility] [address] [place] [address] Sandra Granda SOLAR ENERGY SALES SPECIALIST [address] [place] [address] Social History Tobacco Use Types Packs/Day Years Used Date Smoking Tobacco: Former Cigarettes Q uit: 2018 Smokeless Tobacco: Never Alcohol Use Standard Drinks/Week Comments Not Currently 0 (1 standard drink = 0.6 oz pur e alcohol) caffeine intake: PHQ-2 Answer Date Recorded Patient Health Questionnaire-2 Score 0 12/23/2022 Comments Unknown Sex and Gender Information Value Date Recorded Sex Assigned at Not on file Legal Sex Female 11:47 PM EDT Gender Identity Not on file Sexual Orientation Not on file documented as of this encounter Plan of Treatment Upcoming Encounters Date Type Department Care Team (Late st Contact Info) Description 12/10/2025 10:00 AM EDT Procedure Visit [facility] [address] [place] [address] Yossi Lawton DO [address] [place] [address] [address] documented as of this encounter Procedures Procedure Name Priority Date/Time Associated Diagnosis Comments TSH W/REFLEX T4 Routine 10/10/2023 10:32 AM EDT LIPID PANEL Routine 10/10/2023 10:32 AM EDT COMPREHENSIVE METABOLIC PANEL Routine 10/10/2023 10:32 AM EDT documented in this encounter Results * Lipid panel (10/10/2023 10:32 AM EDT) Blood Venous blood specimen / Unknown Sandra Granda SOLAR ENERGY SALES SPECIALIST LAB BLOOD ORDERABLES Final Resu lt * TSH W/REFLEX T4 (10/10/2023 10:32 AM EDT) Sandra Granda NP LAB BLOOD ORDERABLES Final Resu lt * Comprehensive metabolic panel (10/10/2023 10:32 AM EDT) Blood Venous blood specimen / Unknown Sandra Granda SOLAR ENERGY SALES SPECIALIST LAB BLOOD ORDERABLES Final Resu lt documented in this encounter Visit Diagnoses Not on filedocumented in this encounter Care Teams Assembler Liquid Center Relationship Specialty Start Date End Date Angie Bobby MD [address] [facility] [place] [address] PCP - General Family Medicine 05/31/23 La Nena Quintanilla DO [address] [facility] [address] [place] [phone] PCP - [facility] 07/25/23 Sandra Granda NP [address] [facility] [place] [address] PCP - [facility] 01/24/24 Sandra Granda NP [address] [place] [address] Nurse Practitioner Family Medicine 05/31/23 documented as of this encounter
--- OUTSIDE RECORDS SUMMARY | 2024-12-06 12:49 | XMS_ITS | Encounter Summary ---
Author Organization [facility] Healthcare Address [address] [facility] [place] [address] Care Team Providers Care Bushel Worker Name Role Phone Angie Bobby MD Primary Care Provider [phone] Sandra Granda NP Unavailable [phone] Sandra Granda NP Unavailable [phone] Reason for Referral * Medications - Closed Specialty Diagnoses / Procedures Referred By Contdarcie t Referred To Contact Diagnoses ADHD (attention deficit hyperactivity disorder), inattentive type Snadra Granda NP [address] [facility] [place] [address] Phone: tel: fax: Referral ID Status Reason Start Date Expiration Date Visits Re quested Visits Authorized [id number] Closed 1 1 Encounter Details Date Type Department Care Team (Late st Contact Info) Description 11/26/2024 Refill [facility] Family Medicine [address] [facility] [place] [address] Angie Bobby MD [address] [place] [address] ADHD (attention deficit hyperactivity disorder), inattentive type Social History Tobacco Use Types Packs/Day Years [...] encounter Miscellaneous Notes * Telephone Encounter - Yue Carreon MA - 11/27/2024 12:51 PM EDT Pt scheduled 12/03 * Telephone Encounter - Sandra Granda NP - 11/26/2024 4:52 PM EDT Please get her on my schedule next week * Telephone Encounter - Yue Carreon MA - 11/26/2024 4:12 PM EDT Pt is scheduled for 11/29/24. Pt is wondering if she can get enough medication until her appointment on . * Telephone Encounter - Sandra Granda NP - 11/26/2024 12:12 PM EDT She is overdue for appointment, please schedule * Telephone Encounter - Edita Rollins - 11/26/2024 11:38 AM EDT Would like 2x per day tablets rather than capsule. documented in this encounter Plan of Treatment Upcoming Encounters Date Type Department Care Team (Late st Contact Info) Description 12/10/2025 10:00 AM EDT Procedure Visit [facility] [address] [facility] [place] [phone] Yossi Lawton DO [address] [place] [address] documented as of this encounter Visit Diagnoses Diagnosis ADHD (attention deficit hyperactivity disorder), inattentive type documented in this encounter Additional Health Concerns Assessment Noted Time PHQ-9 Depression Total Score: 1 07/05/19 25 2:43 PM EDT documented as of this encounter Care Teams Bushel Worker Relationship Specialty Start Date End Date Angie Bobby MD [address] [place] [address] PCP - General Family Medicine 05/31/23 Sandra Granda NP [address] [facility] [place] [address] PCP - [facility] 01/24/24 Sandra Granda NP [address] [facility] [place] [address] Nurse Practitioner Family Medicine 05/31/23 documented as of this encounter
--- OUTSIDE RECORDS SUMMARY | 2024-12-06 12:52 | XMS_ITS | CCD ---
Author Organization [facility] Care Team Providers Care Wellness Consultant Name Role Phone Arie Parks Unavailable Unavailable Arie Parks Unavailable Unavailable Olexa, Danny Unavailable DUNG HERNANDEZ Admitting Unavailable DUNG HERNANDEZ [...] Unavailable HAY ., DR NIETO Consulting Unavailable JERED ., DR DE LUNA Admitting Unavailable JERED ., DR DE LUNA Attending Unavailable HOUSE, DR SAENZ Primary Care Unavailable JERED ., DR DE LUNA Consulting Unavailable JERED ., DR DE LUNA Admitting Unavailable JERED ., DR DE LUNA Attending Unavailable HOUSE, DR SAENZ Primary Care Unavailable JERED ., DR DE LUNA Consulting Unavailable Angie Bobby MD Primary Care Provider Jesus Alberto [employer] TEACHER, Samuel Unavailable La Nena Quintanilla DO Unavailable Jesus Alberto [employer] TEACHER, Samuel Unavailable SAMUEL GRANDA Attending Unavailable SAMUEL GRANDA Referring Unavailable SAMUEL GRANDA Attending Unavailable SAMUEL GRANDA Attending Unavailable Allergies Allergy Classification Reported Allergen(s) Allergy Type Date of Onset Reaction(s) Facility (1 source) A & D Drug allergy Unknown [facility] Other (1 source) bee venom Drug allergy (disorder) [facility] Repository (1 source) A AND D Emollient Drug allergy (disorder) [facility] (2 sources) Lanolin / Petrolatum Drug Allergy 12-06-2024 [facility] Medications Current Medications Medication Drug Class(es) Dates Sig (Normalized) Sig (Original) amphetamine aspartate 7.5 mg / amphetamine sulfate 7.5 mg / dextroamphetamine saccharate 7.5 mg / dextroamphetamine sulfate 7.5 mg oral tablet (20 sources) Central Nervous System Stimulant Start: 11-26-2024 take 1 tablet by mouth in the morning amphetamine-dextro amphetamine (Adderall) 30 MG tablet Indications: ADHD (attention deficit hyperactivity disorder), inattentive type Take 1 tablet (30 mg) by mouth in the morning and 1 tablet (30 mg) before bedtime. 60 tablet 11/26/2024 Active Start: 09-28-2024 End: 11-21-2024 take 1 capsule by mouth every twenty-four hours in the morning amphetamine-dextroamphetamine XR (Addera ll XR) 30 MG 24 hr capsule Indications: ADHD (attention deficit hyperactivity disorder), inattentive type Take 1 capsule (30 mg) by mouth in the morning. Do not crush or chew. 30 capsule 10/22/2024 11/21/2024 Active Start: 09-28-2024 take 1 tablet by joseph th in the morning amphetamine-dextroamphetamine (Adderall) 30 MG tablet Indications: ADHD (attention deficit hyperactivity disorder), inattentive type (CMS/HCC) Take 1 tablet (30 mg) by mouth in the morning and 1 tablet (30 mg) before bedtime. Take 2nd dose in the afternoon. 60 tablet 09/28/2024 Active Start: 02-13-2024 End: 09-28-2024 take 1 tablet by mouth in the morning amphetamine-dextroamphetamine (Adderall) 30 MG tablet Indications: ADHD (attention deficit hyperactivity disorder), inattentive type (CMS/HCC) Take 1 tablet (30 mg) by mouth in the morning and 1 tablet (30 mg) before bedtime. Take 2nd dose in the afternoon. 60 tablet 08/31/2024 09/28/2024 Discontinued (Reorder) Start: 12-19-2023 End: 02-10-2024 take 1 tablet by mouth in the morning amphetamine-dextroamphetamine (Adderall) 30 MG tablet Indications: ADHD (attention deficit hyperactivity disorder), inattentive type (CMS/HCC) Take 1 tablet (30 mg) by mouth in the morning and 1 tablet (30 mg) before bedtime. 60 tablet 01/13/2024 02/10/2024 Discontinued (Reorder) Start: 11-28-2023 End: 01-12-2024 take 1 capsule by mouth once daily amphetamine-dextroamphetamine XR (Addera ll XR) 30 MG 24 hr capsule Indications: ADHD (attention deficit hyperactivity disorder), inattentive type (CMS/HCC) Take 1 capsule (30 mg) by mouth Daily Do not crush or chew. 30 capsule 12/13/2023 01/12/2024 Active Berberine (2 sources) BERBERINE Daily Active doxycycline hyclate 100 mg oral tablet (5 sources) Tetracycline-class Drug Start: 02-07-2024 End: 02-17-2024 doxycycline (Vibra-Tabs) 100 MG tablet Indications: Acute non-recurrent pansinusitis Take 1 tablet (100 mg) by mouth in the morning and 1 tablet (100 mg) before bedtime. Do all this for 10 days. Take with a full glass of water and do not lie down for at least 30 minutes after.. 20 tablet 02/07/2024 02/17/2024 Active Start: 02-07-2024 End: 07-04-2024 doxycycline (Vibramycin) 100 MG capsule TAKE 1 CAP IN THE MORNING AND BEFORE BEDTIME FOR 10 DAYS WITH FULL GLASS OF WATER 02/07/2024 07/04/2024 Discontinued (Therapy completed) ibuprofen 800 mg oral tablet (2 sources) Nonsteroidal Anti-inflammatory Drug Start: 01-20-2021 take 1 tablet by mouth three times daily at mealtime as needed Ibuprofen 800 MG 1 tablet with food or milk as needed Orally Three times a day for 30 days Dec, Active Ibuprofen Active predniSONE 20 mg oral tablet (2 sources) Start: 02-07-2024 End: 02-12-2024 take 1 tablet by mouth in the morning predniSONE (Deltasone) 20 MG tablet Indications: Acute non-recurrent pansinusitis Take 1 tablet (20 mg) by mouth in the morning and 1 tablet (20 mg) before bedtime. Do all this for 5 days. 10 tablet 02/07/2024 02/12/2024 Active valACYclovir 500 mg oral tablet (20 sources) Herpesvirus Nucleoside Analog DNA Polymerase Inhibitor, Herpes Simplex Virus Nucleoside Analog DNA Polymerase Inhibitor, Herpes Zoster Virus Nucleoside Analog DNA Polymerase Inhibitor Start: 01-30-2024 valACYclovir (Valtrex) 500 MG tablet 01/30/2024 Active Start: 12-28-2023 End: 01-27-2024 take 1 tablet by mouth once daily valACYclovir (Valtrex) 500 MG tablet Indications: Herpes Take 1 tablet (500 mg) by mouth Daily 30 tablet 3 12/28/2023 01/27/2024 Active Completed/Discontinued Medications Medication Drug Class(es) Dates Sig (Normalized) Sig (Original) 24 hr buPROPion hydrochloride 150 mg extended release oral tablet (16 sources) Aminoketone Start: 09-13-2023 End: 07-04-2024 take 2 tablets by mouth once daily buPROPion XL (Wellbutrin XL) 150 MG 24 hr tablet Indications: ADHD (attention deficit hyperactivity disorder), inattentive type (CMS/HCC) , Obesity (BMI 30.0-34.9) Take 2 tablets (300 mg) by mouth Daily Do not crush, chew, or split. 180 tablet 09/13/2023 07/04/2024 Discontinued (Therapy completed) Problems Active Problems Problem Classification Problem Date Documented Date Episodic/Chronic Attention-deficit, conduct, and disruptive behavior disorders (20 sources) Attention deficit hyperactivity disorder, predominantly inattentive type; Translations: [Attention-deficit hyperactivity disorder, predominantly inattentive type] Onset: 12-23-2022 12-23-2022 Chronic Attention-deficit, conduct, and disruptive behavior disorders (2 sources) Attention deficit hyperactivity disorder; Translations: [Attention-deficit hyperactivity disorder, unspecified type] 07-04-2024 Chronic E Codes: Cut/pierceb (1 source) Contact with knife, initial encounter; Translations: [CONTACT WITH KNIFE INITIAL ENC] Onset: 09-06-2022 Episodic Genitourinary symptoms and ill-defined conditions (2 sources) Mixed urinary incontinence; Translations: [Mixed incontinence] 12-06-2024 Chronic Open wounds of extremities (4 sources) Laceration without foreign body of left thumb without damage to nail, initial encounter; Translations: [LAC NO FB LT THUMB NO DMG NAIL INIT] Onset: 09-04-2022 Episodic Other nutritional; endocrine; and metabolic disorders (20 sources) Obese class I; Translations: [Obesity (BMI 30.0-34.9)] Onset: 06-14-2023 06-14-2023 Chronic Other screening for suspected conditions (not mental disorders or infectious disease) (12 sources) Encounter for screening for malignant neoplasm of cervix; Translations: [Patient encounter status] Onset: 10-15-2021 Episodic Other upper respiratory disease (2 sources) Nasal congestion; Translations: [Nasal congestion] 02-07-2024 Episodic Other upper respiratory infections (2 sources) Acute pansinusitis; Translations: [Acute pansinusitis, unspecified] 02-07-2024 Episodic Prolapse of female genital organs (20 sources) Midline cystocele; Translations: [Cystocele, midline] Onset: 12-23-2022 12-23-2022 Chronic Screening and history of mental health and substance abuse codes (1 source) Personal history of nicotine dependence; Translations: [PERSONAL HISTORY OF NICOTINE DEPEND] Onset: 09-06-2022 Episodic Past or Other Problems Problem Classification Problem Date Documented Date Episodic/Chronic Cancer of other female genital organs (20 sources) History of malignant neoplasm of fallopian tube; Translations: [Personal history of malignant neoplasm of other female genital organs] Onset: 12-23-2022 12-23-2022 Episodic E Codes: Fall (1 source) Unspecified fall, [...] [ENC SCREENING HUMAN PAPILLOMAVIRUS] Onset: 10-15-2021 Episodic Mood disorders (15 sources) Mood disorders Onset: 07-04-2024 07-04-2024 Other endocrine disorders (4 sources) Endocrine disorder, unspecified; Translations: [ENDOCRINE DISORDER UNSPECIFIED] Onset: 03-27-2022 Episodic Other endocrine disorders (20 sources) Disorder of endocrine system; Translations: [Endocrine disorder, unspecified] Onset: 12-23-2022 12-23-2022 Episodic Other non-traumatic joint disorders (1 source) Pain in left wrist; Translations: [Acute pain of left wrist M25.532] Onset: 01-20-2021 Resolved: 01-20-2021 Episodic Other non-traumatic joint disorders (3 sources) Pain in right wrist; Translations: [PAIN IN RIGHT WRIST] Onset: 06-06-2022 Episodic Residual codes; unclassified (1 source) Acquired [...] Results Test Name Value Interpretation Reference Range Facility BI MAMMOGRAM SCREENING TOMOS YNTHESIS BILATERALon 10-10-2024 BI MAMMOGRAM SCREENING TOMOSYNTHESIS BILATERAL This is a summary report. The complete report is available in the patient's medical record. If you cannot access the medical record, please contact the sending organization for a detailed fax or copy. Examination: BI MAMMOGRAM SCREENING TOMOSYNTHESIS BILATERAL Clinical [...] on the left which appear grossly unremarkable. IMPRESSION: Impression: No specific evidence of malignancy seen in either breast. BIRADS 2 - Benign Findings DENSITY: The breasts are heterogeneously dense, which may obscure small masses. FOLLOW-UP: Routine Screening Mammogram ELECTRONICALLY SIGNED BY: Joshua Chung M.D. Normal Not Available Laboratory - Microbiology an d Antimicrobial susceptibilityon 02-07-2024 SARS-CoV-2 (COVID-19) RNA NEAL+probe Ql (Unsp spec) - [facility] No Panel Informationon 02-06 FLU [address] - [facility] FLU B - [facility] Interpretation and review of laboratory results Normal [facility] XR WRIST RT MIN 3 Von 2022 [...] ELISEO PATEL Date: 2022-06-06 09:14 Normal [facility] TESTOSTERONE, FREE,DIRECT, T OTALon 03-31-2022 Free Testosterone(Direct) 2.8 pg/mL Normal 0.0-4.2 [facility] Comment on above: Result Comment: Perf ormed at: BN Performed By: #### T ESTFRD #### [facility] [address] [place] [address] Dr. Jorge Munoz Testosterone [Mass/Vol] 32 ng/dL Normal 8-60 [facility] Comment on above: Result Comment: Perf ormed at: CB Performed By: #### T ESTFRD #### [facility] [address] [place] [address] Dr. Jorge Munoz CORTISOLon 03-30-2022 Cortisol 11.0 ug/dL Normal [facility] Comment on above: Result Comment: Rosalino isol AM 6.2 - 19.4 Cortisol PM 2.3 - 11.9 Performed By: #### C ORTISO #### [facility] [address] [place] [address] Dr. Jorge Munoz ESTRONEon 03-30-2022 Estrone, Serum 116 pg/mL Normal 27-231 [facility] Comment on above: Result Comment: Rang e Adult (Premenopausal) 27 - 231 Menstrual Cycle (1-10 days) 19 - 149 Menstrual Cycle (11-20 days) 32 - 176 Menstrual Cycle (21-30 days) 37 - 200 Performed By: #### E STRONE #### [facility] [address] [place] [address] Dr. Jorge Munoz DHEA-SULFATEon 03-28-2022 DHEA-Sulfate 229.0 ug/dL Normal 57.3-279.2 [facility] Comment on above: Performed By: #### D HEMAGGIE ####[facility] [id number] [id number][address] Jorge Munoz ESTRADIOLon 03-28-2022 Estradiol 278.0 pg/mL Normal [facility] Comment on above: Result Comment: Adul t Female: Follicular phase 12.5 - 166.0 Ovulation phase 85.8 - 498.0 Luteal phase 43.8 - 211.0 Postmenopausal <6.0 - 54.7 1st trimester 215.0 - >4300.0 [place] ECLIA methodology Performed By: #### E STRAPRINCE ####[facility] [address] [id number]. Jorge Munoz PROGESTERONEon 03-28-2022 Progesterone 13.9 ng/mL Normal [facility] Comment on above: Result Comment: Foll icular phase 0.1 - 0.9 Luteal phase 1.8 - 23.9 Ovulation phase 0.1 - 12.0 First trimester 11.0 - 44.3 Second trimester 25.4 - 83.3 Third trimester 58.7 - 214.0 Postmenopausal 0.0 - 0.1 Performed By: #### P INGE #### [facility] [address] [place] [address] Dr. Jorge Munoz SEX HORMONE-BINDING GLOBULIN on 03-28-2022 Sex Horm Binding Glob, Serum 66.0 nmol/L Normal 24.6-122.0 [facility] Comment on above: Performed By: #### S EXHBG #### [facility] [address] [address] [address] Jorge Munoz VITAMIN D 25 OHon 03-27-2022 VIT D 25-OH 31.2 ng/mL Normal [facility] Comment on above: Performed By: #### V ITAD #### [facility] [address] [place] [address] Dr. Jorge Munoz VIT D RANGES SEE BELOW Normal [facility] Comment on above: Result Comment: <20 ng/mL Vit D deficient 20 - <30 ng/mL Vit D insufficient 30 - 100 ng/mL Vit D sufficient >100 ng/mL Potential Toxicity Performed By: #### V ITAD #### [facility] [address] [place] [address] Dr. Jorge Munoz PAP ACOG PANEL 2: 30 to 65on 10-19-2021 . . Normal [facility] Comment on above: Result Comment: Perf ormed at: WB Performed By: #### [id number] #### [facility] [address] [place] [address] Dr. Jorge Munoz Age Gdln ACOG Testing 30-65 Normal [facility] Comment on above: Performed By: #### [id number] #### [facility] [address] [place] [address] Dr. Jorge Munoz DIAGNOSIS: Comment Normal [facility] Comment on above: Result Comment: NEGA TIVE FOR INTRAEPITHELIAL LESION OR MALIGNANCY. Performed at: WB Performed By: #### [id number] #### [facility] [address] [place] [address] Dr. Jorge Munoz HPV Aptima Negative Normal Negative [facility] Comment on above: Result Comment: This nucleic acid amplification test detects fourteen high-risk HPV types (16,18,31,33,35,39,45,51,52,56,58,59,66,68) without differentiation. Performed at: =G Performed By: #### [id number] #### [facility] [address] [place] [address] Dr. Jorge Munoz Methodology: Comment Normal [facility] Comment on above: Result Comment: This liquid based ThinPrep(R) pap test was screened with the use of an image guided system. Performed at: WB Performed By: #### [id number] #### [facility] [address] [place] [address] Dr. Jorge Munoz Note: Comment Normal [facility] Comment on above: Result Comment: The Pap smear is a screening test designed to aid in the detection of premalignant and malignant conditions of the uterine cervix. It is not a diagnostic procedure and should not be used as the sole means of detecting cervical cancer. Both false-positive and false-negative reports do occur. . Performed at: WB Performed By: #### [id number] #### [facility] [address] [address] [address] Jorge Munoz Performed by: Comment Normal [facility] Comment on above: Result Comment: Alyson De La Cruz, [employer] Driver (ASCP) Performed at: WB Performed By: #### [id number] #### [facility] [address] [place] [address] Dr. Jorge Munoz Specimen adequacy: Comment Normal [facility] Comment on above: Result Comment: Sati sfactory for evaluation. No endocervical component is identified. Performed at: WB Performed By: #### [id number] #### [facility] [address] [address] [address] Jorge Munoz ER URINE PROFILEon 2 Bilirubin Ql (U) Negative Normal NEGATIVE [facility] Comment on above: Performed By: #### Marvin RUR, UMICRO #### [facility] [address] [place] [address] Dr. Jorge Munoz Clarity (U) CLEAR Normal CLEAR [facility] Comment on above: Performed By: #### Marvin TOBARR, UMICRO #### [facility] [address] [place] [address] Dr. Jorge Munoz Color (U) LT. YELLOW Normal YELLOW [facility] Comment on above: Performed By: #### Marvin RUR, UMICRO #### [facility] [address] [place] [address] Dr. Jorge Munoz ERUAHD A micrscopic examination will be performed if indicated. Normal [facility] Comment on above: Performed By: #### E RUR, UMICRO #### [facility] [address] [place] [address] Dr. Jorge Munoz Glucose Ql (U) Negative Normal NEGATIVE [facility] Comment on above: Performed By: #### E RUR, UMICRO #### [facility] [address] [place] [address] Dr. Jorge Munoz Hemoglobin Ql (U) MODERATE Abnormal NEGATIVE [facility] Comment on above: Performed By: #### E RUR, UMICRO #### [facility] [address] [place] [address] Dr. Jorge Munoz Ketones Ql (U) Negative Normal NEGATIVE [facility] Comment on above: Performed By: #### DRU BIRD #### [facility] [address] [place] [address] Dr. Jorge Munoz LEUKOCYTES TRACE Abnormal NEGATIVE [facility] Comment on above: Performed By: #### PATRICK BIRDRO #### [facility] [address] [place] [address] Dr. Jorge Munoz Nitrite Ql (U) Negative Normal NEGATIVE [facility] Comment on above: Performed By: #### DRU BIRD #### [facility] [address] [place] [address] Dr. Jorge Munoz pH (U) 6.0 [pH] Normal 5-9 [facility] Comment on above: Performed By: #### DRU BIRD #### [facility] [address] [place] [address] Dr. Jorge Munoz SPEC GRAVITY 1.025 Normal 1.005-<=1.025 [facility] Comment on above: Performed By: #### DRU BIRD #### [facility] [address] [place] [address] Dr. Jorge Munoz UA PROTEIN Negative Normal NEGATIVE/ TRACE [facility] Comment on above: Performed By: #### DRU BIRD #### [facility] [address] [place] [address] Dr. Jorge Munoz UR MICRO IND INDICATED Normal [facility] Comment on above: Performed By: #### PATRICK BIRDRO #### [facility] [address] [place] [address] Dr. Jorge Munoz Urobilinogen Qn (U) 0.2 {Darren'U}/dL Normal 0.2 - 1. 0 [facility] Comment on above: Performed By: #### PATRICK BIRDRO #### [facility] [address] [place] [address] Dr. Jorge Munoz URINE MICROSCOPIC ONLYon BACTERIA NONE SEEN Normal NONE SEEN [facility] Comment on above: Performed By: #### E EKATERINAR, UMICRO #### [facility] [address] [place] [address] Dr. Jorge Munoz Bacteria identified Cx Nom (U) NOT INDICATED Normal [facility] Comment on above: Performed By: #### E RUR, UMICRO #### [facility] [address] [place] [address] Dr. Jorge Munoz CAST NONE SEEN Normal NONE SEEN [facility] Comment on above: Performed By: #### E RUR, UMICRO #### [facility] [address] [place] [address] Dr. Jorge Munoz Crystals LM Nom (Urine sed) NONE SEEN Normal NONE SEEN [facility] Comment on above: Performed By: #### E RUR, UMICRO #### [facility] [address] [place] [address] Dr. Jorge Munoz Epithelial cells LM Ql (Urine sed) MANY Abnormal NONE SEEN /RARE [facility] Comment on above: Performed By: #### Marvin HADDAD UMICRO #### [facility] [address] [place] [address] Dr. Jorge Munoz MUCOUS TRACE Abnormal NONE SEEN [facility] Comment on above: Performed By: #### E BOO, UMICRO #### [facility] [address] [place] [address] Dr. Jorge Munoz RBC 20-50 Abnormal 0-[address] [facility] Comment on above: Performed By: #### Marvin HADDAD UMICRO #### [facility] [address] [place] [address] Dr. Jorge Munoz WBC 0-2 Abnormal NONE SEEN [facility] Comment on above: Performed By: #### Marvin HADDAD UMICRO #### [facility] [address] [place] [address] Dr. Jorge Munoz Vital Signs Date Time Vital Sign Value Performing Clinician Facility 12-03-2024 14:00-0400 Body mass index (BMI) [Ratio] 32.19 kg/m2 Samuel Granda [employer] Work Phone: [facility] 12-03-2024 14:00-0400 Body weight 79.83 kg Samuel Granda [employer] Work Phone: [facility] 12-03-2024 14:00-0400 Diastolic blood pressure 78 mm[Hg] Samuel Granda [employer] Work Phone: [facility] 12-03-2024 14:00-0400 Heart rate 76 /min Samuel Granda [employer] Work Phone: [facility] 12-03-2024 14:00-0400 SaO2% (BldA) [Mass fraction] 95 % Samuel Granda [employer] Work Phone: [facility] 12-03-2024 14:00-0400 Systolic blood pressure 114 mm[Hg] Samuel Granda [employer] Work Phone: [facility] 07-04-2024 14:35-0400 Body mass index (BMI) [Ratio] 32.04 kg/m2 Samuel Granda [employer] Work Phone: [facility] 07-04-2024 14:35-0400 Body temperature 97.2 [degF] Samuel Granda [employer] Work Phone: [facility] 07-04-2024 14:35-0400 Body weight 79.47 kg Samuel Granda [employer] Work Phone: [facility] 07-04-2024 14:35-0400 Diastolic blood pressure 84 mm[Hg] Samuel Granda [employer] Work Phone: [facility] 07-04-2024 14:35-0400 Systolic blood pressure 128 mm[Hg] Samuel Granda [employer] Work Phone: [facility] 02-07-2024 14:33-0400 Body height 157.5 cm Samuel Granda [employer] Work Phone: [facility] 02-07-2024 14:33-0400 Body mass index (BMI) [Ratio] 32.41 kg/m2 Samuel Granda [employer] Work Phone: [facility] 02-07-2024 14:33-0400 Body temperature 98.2 [degF] Samuel Granda [employer] Work Phone: [facility] 02-07-2024 14:33-0400 Body weight 80.38 kg Samuel Granda [employer] Work Phone: [facility] 02-07-2024 14:33-0400 Diastolic blood pressure 80 mm[Hg] Samuel Granda [employer] Work Phone: [facility] 02-07-2024 14:33-0400 Heart rate 78 /min Samuel Granda [employer] Work Phone: [facility] 02-07-2024 14:33-0400 SaO2% (BldA) [Mass fraction] 97 % Samuel Granda [employer] Work Phone: [facility] 02-07-2024 14:33-0400 Systolic blood pressure 120 mm[Hg] Samuel Granda [employer] Work Phone: [facility] 12-13-2023 17:28-0400 Diastolic blood pressure 80 mm[Hg] Samuel Granda [employer] Work Phone: [facility] 12-13-2023 17:28-0400 Systolic blood pressure 130 mm[Hg] Samuel Granda [employer] Work Phone: [facility] 12-13-2023 17:21-0400 Body height 157.5 cm Samuel Granda [employer] Work Phone: [facility] 12-13-2023 17:21-0400 Body mass index (BMI) [Ratio] 32.12 kg/m2 Samuel Granda [employer] Work Phone: [facility] 12-13-2023 17:21-0400 Body weight 79.65 kg Samuel Granda [employer] Work Phone: [facility] 12-13-2023 17:21-0400 Heart rate 76 /min Samuel Granda [employer] Work Phone: [facility] 12-13-2023 17:21-0400 SaO2% (BldA) [Mass fraction] 99 % Samuel Granda [employer] Work Phone: [facility] 01-20-2021 14:15-0400 Body height Danny Queenxa Other [facility] Other 01-20-2021 14:15-0400 Body mass index (BMI) [Ratio] 26.45 kg/m2 Danny Olexa Other [facility] Other 01-20-2021 14:15-0400 Body weight 63.5 kg Danny Olexa Other [facility] Other Encounters Encounter Date Encounter Type Care Provider Facility Start: 12-06-2024 End: 12-06-2024 Bamboo flowsheet Calixto Jered DO Work Phone: [facility] Vania BARRAZA Start: 12-06-2024 End: 12-06-2024 Bamboo flowsheet Calixto Jered DO Work Phone: [facility] Vania OBMARQUIS Start: 12-06-2024 End: 12-06-2024 Patient encounter procedure Calixto Jered DO Work Phone: [facility] [employer] Start: 12-06-2024 End: 12-06-2024 Periodic preventive med est patient 40-64yrs Calixto Jered DO Work Phone: [facility] Vania BARRAZA Comment on above: Well woman exam with routine gynecological exam; Encounter for screening mammogram for malignant neoplasm of breast; Mixed stress and urge urinary incontinence Start: 12-03-2024 End: 12-03-2024 Bamboo flowsheet Samuel Granda [employer] Work Phone: [facility] Start: 12-03-2024 End: 12-03-2024 Bamboo flowsheet Samuel Granda [employer] Work Phone: [facility] Start: 12-03-2024 End: 12-03-2024 Office outpatient visit 15 minutes Samuel Granda NP Work Phone: [facility] Comment on above: ADHD (attention defi cit hyperactivity disorder), inattentive type (Primary Dx) Start: 10-22-2024 End: 10-22-2024 Refill Angie Bobby MD Work Phone: [facility] Comment on above: ADHD (attention defi cit hyperactivity disorder), inattentive type Start: 10-10-2024 End: 10-10-2024 Telephone encounter Angie Bobby MD Work Phone: [facility] Start: 10-10-2024 End: 10-10-2024 ambulatory SAMUEL GRANDA Not Available Start: 09-28-2024 End: 09-28-2024 Refill Angie Bobby MD Work Phone: [facility] Comment on above: ADHD (attention defi cit hyperactivity disorder), inattentive type (CMS/HCC) Start: 08-23-2024 End: 08-31-2024 Refill Samuel Granda [employer] Work Phone: [facility] Comment on above: ADHD (attention defi cit hyperactivity disorder), inattentive type (CMS/HCC) Start: 08-01-2024 End: 08-01-2024 Refill Angie Bobby MD Work Phone: [facility] Comment on above: ADHD (attention defi cit hyperactivity disorder), inattentive type (CMS/HCC) Start: 07-05-2024 End: 07-05-2024 Telephone encounter Angie Bobby MD Work Phone: [facility] Start: 07-04-2024 End: 07-04-2024 Patient encounter status Samuel Granda NP Work Phone: [facility] Work Phone: Start: 07-04-2024 End: 07-04-2024 Periodic preventive med est patient 18-39 yrs Samuel Granda [employer] Work Phone: [facility] Comment on above: Encounter for wellne ss examination (Primary Dx); Breast screening; Screening, lipid; Obesity (BMI 30.0-34.9); Encounter for screening mammogram for malignant neoplasm of breast; Attention deficit hyperactivity disorder (ADHD), unspecified ADHD type (CMS/HCC) Start: 07-04-2024 End: 07-04-2024 Bamboo flowsheet Samuel Granda [employer] Work Phone: [facility] Start: 07-04-2024 End: 07-04-2024 Bamboo flowsheet Samuel Granda [employer] Work Phone: [facility] Start: 07-04-2024 End: 07-05-2024 Refill Samuel Granda NP Work Phone: [facility] Comment on above: ADHD (attention defi cit hyperactivity disorder), inattentive type (CMS/HCC) Start: 06-06-2024 End: 06-06-2024 Refill Angie Bobby MD Work Phone: [facility] Comment on above: ADHD (attention defi cit hyperactivity disorder), inattentive type (CMS/HCC) Start: 05-09-2024 End: 05-10-2024 Refill Angie Bobby MD Work Phone: [facility] Comment on above: ADHD (attention defi cit hyperactivity disorder), inattentive type (CMS/HCC) Start: 04-09-2024 End: 04-09-2024 Refill Angie Bobby MD Work Phone: [facility] Comment on above: ADHD (attention defi cit hyperactivity disorder), inattentive type (CMS/HCC) Start: 03-12-2024 End: 03-13-2024 Refill Angie Bobby MD Work Phone: [facility] Comment on above: ADHD (attention defi cit hyperactivity disorder), inattentive type (CMS/HCC) Start: 02-10-2024 End: 02-13-2024 Refill Samuel Granda NP Work Phone: [facility] Comment on above: ADHD (attention defi cit hyperactivity disorder), inattentive type (CMS/HCC) Start: 02-07-2024 End: 02-07-2024 Office outpatient visit 15 minutes Samuel Youngpreciouspatricia [employer] Work Phone: [facility] Comment on above: Nasal congestion (Pr imary Dx); Acute non-recurrent pansinusitis Start: 02-07-2024 End: 02-07-2024 ambulatory SAMUEL GRANDA Not Available Start: 02-07-2024 End: 02-07-2024 Bamboo flowsheet Samuel Granda [employer] Work Phone: [facility] Start: 02-07-2024 End: 02-07-2024 Bamboo flowsheet Samuel Youngpreciouspatricia [employer] Work Phone: [facility] Start: 01-13-2024 End: 01-13-2024 Telephone encounter Angie Bobby MD Work Phone: [facility] Start: 12-19-2023 End: 12-19-2023 Telephone encounter Angie Bobby MD Work Phone: [facility] Start: 12-13-2023 End: 12-13-2023 Office outpatient visit 25 minutes Samuel Youngpreciouspatricia [employer] Work Phone: [facility] Comment on above: ADHD (attention defi cit hyperactivity disorder), inattentive type (CMS/HCC) (Primary Dx); Obesity (BMI 30.0-34.9) Start: 12-13-2023 End: 12-13-2023 ambulatory SAMUEL YOUNGPPATRICIA Not Available Start: 12-13-2023 End: 12-13-2023 Bamboo flowsheet Samuel Youngpreciouspatricia [employer] Work Phone: [facility] Start: 12-13-2023 End: 12-13-2023 Bamboo flowsheet Samuel Youngpreciouspatricia [employer] Work Phone: [facility] Start: 09-04-2022 End: 09-04-2022 ambulatory [facility] Facility: Start: 06-06-2022 End: 06-06-[address] DANY BENJAMIN Facility:[facility] Start: 03-27-2022 End: 03-28-[address] CALIXTO LAWTON . Facility:[facility] Start: 10-15-2021 End: 10-15-[address] CALIXTO LAWTON . Facility:[facility] Start: 10-01-2021 End: 10-01-[address] DANY BENJAMIN Facility:[facility] Start: 01-20-2021 Office outpatient ne w 30 minutes Danny Car[place] Start: 08-25-2017 End: 08-26-2017 Ambulatory Arie Parks Facility:[id number] Procedures Date Procedure Procedure Detail Performing Clinician Start: 10-10-2024 Mammography Angie cook MD Work Phone: Start: 02-07-2024 STATUS COVID-19/FLU Shantell faheem Granda [employer] Work Phone: Start: 12-23-2022 H/O: hysterectomy S/P hysterectomy S didier Granda [employer] Work Phone: Plan of Treatment Date Care Activity Detail Author Start: 12-10-2025 End: 12-10-2025 Patient encounter procedure 12/10/2025 10:00 AM EDT Procedure Visit [facility] [address] [place] [place] [phone] Calixto Lawton DO [address] [place] [address] [facility] Start: 10-10-2025 Screening for malign ant neoplasm of breast Mammogram [facility] Start: 12-24-2024 Influenza vaccination [facility] Start: 12-06-2024 End: 12-06-2024 Patient encounter procedure [facility] Comment on above: Arrived Start: 10-22-2024 Influenza vaccination Influenza Vacc ine (#1) [facility] Comment on above: Postponed from 12/24 (Supply/Drug Shortage) Start: 10-10-2024 End: 10-10-2024 Professional / ancillary services management 10/10/2024 9:00 AM EDT Ancillary Procedure [facility] [address] [facility] [place] [id number] [facility] Start: 2024 End: 09-03-2025 DBT Breast - bilateral screening Bilateral screening mammogram with tomosynthesis Imaging Routine Breast screening Encounter for screening mammogram for malignant neoplasm of breast Expected: 2024, Expires: 09/03/2025 [facility] Work Phone: Comment on above: Expected: 2024 , Expires: 09/03/2025 Start: 2024 Screening for malign ant neoplasm of breast Mammogram [facility] Start: 07-12-2024 End: 07-12-2024 Patient encounter procedure 07/12/2024 9:00 AM EDT Office Visit [facility] [address] [place] [place] [phone] Calixto Lawton DO [address] [facility] [place] [address] [facility] Start: 07-04-2024 End: 07-04-2024 Patient encounter procedure 07/04/2024 2:30 PM EDT Office Visit [facility] [address] [facility] [place] [phone] Samuel Granda NP [address] [facility] [place], [place] [phone] Arrived [facility] Comment on above: Arrived Start: 07-04-2024 End: 07-04-2025 Comprehensive metabolic 2000 panel - Serum or Plasma Comprehensive metabolic panel Lab Routine Encounter for wellness examination Obesity (BMI 30.0-34.9) Expected: 07/04/2024 (Approximate), Expires: 07/04/2025 [facility] Comment on above: Expected: 07/04/2024 (Approximate), Expires: 07/04/2025 Start: 07-04-2024 End: 07-04-2025 DRUG MONITORING, PANEL 6 WITH CONFIRMATION, URINE DRUG MONITORING, PANEL 6 WITH CONFIRMATION, URINE Lab Routine Attention deficit hyperactivity disorder (ADHD), unspecified ADHD type ([facility]) Expected: 07/04/2024 (Approximate), Expires: 07/04/2025 [facility] Comment on above: Expected: 07/04/2024 (Approximate), Expires: 07/04/2025 Start: 07-04-2024 End: 07-04-2025 Lipid 1996 panel - Serum or Plasma Lipid panel Lab Routine Encounter for wellness examination Screening, lipid Obesity (BMI 30.0-34.9) Expected: 07/04/2024 (Approximate), Expires: 07/04/2025 [facility] Comment on above: Expected: 07/04/2024 (Approximate), Expires: 07/04/2025 Start: 07-04-2024 End: 07-04-2025 TSH W/REFLEX TO FT4 TSH W/REFLEX TO FT4 Lab Routine Encounter for wellness examination Obesity (BMI 30.0-34.9) Expected: 07/04/2024 (Approximate), Expires: 07/04/2025 [facility] Comment on above: Expected: 07/04/2024 (Approximate), Expires: 07/04/2025 Start: 02-07-2024 End: 02-07-2024 Patient encounter procedure 02/07/2024 2:30 PM EDT Office Visit [facility] [address] [place] [phone] Samuel Granda NP [address] [place] [address] Arrived [facility] Comment on above: Arrived Start: 12-25-2023 Influenza vaccination Influenza Vacc ine (#1) [facility] Start: 12-13-2023 End: 12-13-2023 Patient encounter procedure 12/13/2023 5:30 PM EDT Office Visit [facility] [address] [place] [phone] Samuel Granda, [employer] [address] [place], [place] [phone] Arrived [facility] Comment on above: Arrived THIN PREP TIS PAP AN D HR HPV DNA THIN PREP TIS PAP AND HR HPV DNA Pathology and Cytology Routine Well woman exam with routine gynecological exam Ordered: 12/06/2024 [facility] Work Phone: Comment on above: Ordered: 12/06/2024 Payers Date Payer Category Payer Medicaid [employer] [place] [id number] 2018-Present [address] [place] [id number] 2018 Medicaid (Managed Care) [facility] MEDICAID [id number] 1984 Unknown [id number] 1984 Unknown [id number] 593 1984 Unknown [id number] 593 1984 Unknown [id number] 593 1984 Unknown [id number] 593 1984 Unknown [id number] 1259 1984 Unknown [id number] [id number]. 1259 1984 Unknown [id number]. 1259 1984 Unknown [id number] 1259 1959 Unknown [id number] Social History Date Type Detail Facility Start: 02-07-2024 End: 12-03-2024 Sex Assigned At [facility] Other Start: 06-14-2023 End: 12-13-2023 Tobacco smoking status [facility] Ex-smoker [facility] End: 04-25-2017 History of tobacco use Current smoker [facility] End: 04-25-2017 History of tobacco use Cigarette Smoker [facility] Start: 06-14-2023 End: 12-13-2023 Tobacco use and exposure Smokeless tobacco non-user [facility] Start: 02-07-2024 End: 12-06-2024 Alcoholic beverage intake Ex-drinker (finding) [facility] Start: 02-07-2024 End: 12-03-2024 History of Social function [facility] Start: 09-13-2023 End: 02-07-2024 Alcohol Comment caffeine intake: [facility] Start: 1985 Sex assigned at Not on file [facility] Start: 12-13-2023 Alcohol Comment caffeine intake:1 -[address] [facility] Start: 07-04-2024 Alcohol Comment caffeine intake: occassionally [facility] Functional Status Date Assessment Result Facility 12-03-2024 Patient Health Quest ionnaire 2 item (PHQ-2) [Reported] [facility] Clinical Notes 01-20-2021 to 12-06-2024 Sangeetha Baldwin LPN - 12/06/2024 8:30 AM Genna Granda NP - 12/03/2024 2:00 PM Genna Granda NP - 12/03/2024 2:00 PM EDTTelephone Encounter - Gideon Cruz - 10/10/2024 1:50 PM EDT Note Date & Type Note Facility 12-06-2024 History of Presen t illness Narrative Reason for Appointment: Patient ID: Nasreen Hackett [...] nursing note reviewed. Exam conducted with a die cut operator present. Vitals: Estimated body mass index is 32.19 kg/m as calculated from the following: Height as [...] by Sangeetha Baldwin LPN on behalf of: Calixto Lawton DO documented in this encounter [facility] 12-03-2024 History of Presen t illness Narrative Associated Problem(s): ADHD (attention deficit hyperactivity disorder), inattentive type -stable with current medication regimen. PDMP reviewed. Follow up in 3 months. Images from the original note were not [...] it to be less. She has been engaging in physical activities such as biking and kayaking, [...] she no longer has a uterus. 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 HENT: Head: Normocephalic [...] Assessment & Plan documented in this encounter [facility] 10-10-2024 Telephone encounter Note Form atting of this note might be different from the original. Asking for call w results from mammogram , ty Nasreen [phone] [facility] 10-10-2024 Miscellaneous Notes Formattin g of this note might be different from the original. Asking for call w results from mammogram , aspen Oliva [phone] documented in this encounter [facility] 09-28-2024 Telephone encounter Note Form atting of this note might be different from the original. She wants to know if you can switch it to the extended release? She says she switches it up when it feels her body gets too used to it. [facility] 09-28-2024 Miscellaneous Notes Formattin g of this note might be different from the original. She wants to know if you can switch it to the extended release? She says she switches it up when it feels her body gets too used to it. documented in this encounter [facility] 08-31-2024 Telephone encounter Note Form atting of this note might be different from the original. Pharmacy and dosage correct [facility] 08-31-2024 Miscellaneous Notes Formattin g of this note might be different from the original. Pharmacy and dosage correct Pt saw you in June and said discussed weight issues, but didn't want injections due to pricing. But is now interested in trying weight loss injection whichever would be cheapest. documented in this encounter [facility] 08-23-2024 Telephone encounter Note Form atting of this note might be different from the original. Pt saw you in June and said discussed weight issues, but didn't want injections due to pricing. But is now interested in trying weight loss injection whichever would be cheapest. [facility] 07-05-2024 Telephone encounter Note Form atting of this note might be different from the original. Also wants to discuss lab results. [facility] 07-05-2024 Miscellaneous Notes Formattin g of this note might be different from the original. Also wants to discuss lab results. documented in this encounter [facility] 07-04-2024 History of Presen t illness Narrative Images from the original note were not included. Nasreen Hackett is a 38 y.o. female presents with chief complaint of Annual Exam and ADHD follow up. History of Present Illness The patient presents for evaluation of ADHD, weight management, and health maintenance. She has been diagnosed with ADHD, which has been effectively managed with medication. She reports no side effects from the medication. However, she expresses a preference for extended-release formulations, citing difficulties in obtaining them. She notes that her body seems to adapt to the instant-release formulation over time, necessitating a switch back to the extended-release version. She is currently on a regimen of 2 tablets daily, which she finds beneficial as it sustains her until bedtime without causing sleep disturbances. She inquires about the possibility of increasing her dosage to 40 mg twice daily. 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 She had an allergic reaction to NICKEL, which was initially misdiagnosed as endometriosis. She experienced heavy menstrual bleeding, using a box of tampons and pads over a weekend, and was found to have cancer. She continues to have annual check-ups. She has no family history of breast cancer. She is scheduled for a mammogram in 09/2024. She reports no issues with her colon. She has been struggling with weight loss, even after incorporating juicing into her diet. Her sedentary job poses a challenge to regular exercise. She has been managing her diet and has expressed disinterest in using Ozempic for weight loss. She engages in hiking and walking activities during weekends. She prepares her own juices every morning and typically consumes a light lunch around 2:00 PM. She has been avoiding injections. She has been tested for thyroid function, which returned normal results. SOCIAL HISTORY She does not smoke or drink alcohol. 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 FAMILY HISTORY She has no family history of breast cancer. ALLERGIES She is allergic to NICKEL. MEDICATIONS Current: Adderall HPI: Over the past 2 weeks, how often have you been bothered by any of the following problems? Little interest or pleasure in doing things: Not at all Feeling down, depressed, or hopeless: Not at all Trouble falling or staying asleep, or sleeping too much: Not at all Feeling tired or having little energy: Several days Poor appetite or overeating: Not at all Feeling bad about yourself - or that you are a failure or have let yourself or your family down: Not at all Trouble concentrating on things, such as reading the newspaper or watching television: Not at all Moving or speaking so slowly that other people could have noticed? Or the opposite - being so fidgety or restless that you have been moving around a lot more than usual.: Not at all Thoughts that you would be better off or hurting yourself in some way: Not at all Patient Health Questionnaire-9 Score: 1 Over the last 2 weeks, how often have you been bothered by any of the following problems? Feeling nervous, anxious, or on edge: Not at all Not being able to stop or control worrying: Not at all Worrying too much about different things: Not at all Trouble relaxing: Not at all Being so restless that it is hard to sit still: Not at all Becoming easily annoyed or irritable: Not at all Feeling afraid as if something awful might happen: Not at all LUBA-7 Total Score: 0 SUBJECTIVE: MEDICATIONS: ALLERGIES Current Outpatient Medications Medication Instructions amphetamine-dextroamphetamine (Adderall) 30 MG tablet 30 mg, Oral, 2 times daily, Take 2nd dose in the afternoon valACYclovir (Valtrex) 500 MG tablet No Known Allergies PAST MEDICAL HISTORY: SOCIAL HISTORY SURGICAL HISTORY: Past Medical History: Diagnosis Date Anxiety Cancer (CMS/HCC) fallopian tube Excessive hair growth Fatigue Herpes Night sweats Social History Tobacco Use Smoking status: Former Current packs/day: 0.00 Types: Cigarettes Quit date: 2018 Years since quittin.1 Smokeless tobacco: Never Vaping Use Vaping status: Never Used Substance Use Topics Alcohol use: Not Currently Comment: caffeine intake: occassionally Drug use: Yes Types: Marijuana Comment: smokes occasionally. Past Surgical History: Procedure Laterality Date HYSTERECTOMY fallopian tube cancer TONSILLECTOMY TUBAL LIGATION REVIEW OF SYMPTOMS: Review of Systems Constitutional: Negative. HENT: Negative. Eyes: Negative. Respiratory: Negative. Cardiovascular: Negative. Gastrointestinal: Negative. Genitourinary: Negative. Musculoskeletal: Negative. Neurological: Negative. Psychiatric/Behavioral: Negative. Hematological: Negative. Endocrine: Negative. Allergic/Immunologic: Negative. OBJECTIVE: Vitals: 07/04/24 1435 Temp: 97.2 F Physical Exam Vitals reviewed. Constitutional: Appearance: Normal appearance. HENT: Head: Normocephalic and atraumatic. Right Ear: Tympanic membrane and ear canal normal. Left Ear: Tympanic membrane and ear canal normal. Nose: Nose normal. Mouth/Throat: Mouth: Mucous membranes are moist. Eyes: Pupils: Pupils are equal, round, and reactive to light. Cardiovascular: Rate and Rhythm: Normal rate and regular rhythm. Pulses: Normal pulses. Heart sounds: Normal heart sounds. Pulmonary: Effort: Pulmonary effort is normal. Breath sounds: Normal breath sounds. Abdominal: General: Abdomen is flat. Bowel sounds are normal. Musculoskeletal: General: Normal range of motion. Cervical back: Normal range of motion and neck supple. Right lower leg: No edema. Left lower leg: No edema. Skin: General: Skin is warm and dry. Capillary Refill: Capillary refill takes less than 2 seconds. Findings: No rash. Neurological: General: No focal deficit present. Mental Status: She is alert and oriented to person, place, and time. ASSESSMENT AND PLAN: Assessment/Plan Diagnoses and all orders for this visit: Encounter for wellness examination - Comprehensive metabolic panel; Future - TSH W/REFLEX TO FT4; Future - Lipid panel; Future -Wellness performed at [facility] today. Height, weight, BMI, problem list, and immunizations records reviewed. Dental care discussed with patient. Encouraged annual vision screenings and semi-annual dental care. Encouraged healthy eating habits, limit or eliminate junk food and sources of excess calories. Encouraged regular periods of exercise, 150 minutes of exercise weekly or amount appropriate to current level of function. Discussed family/friend/social support and importance of maintaining emotional connections. Follow up annually and as needed. Breast screening - Bilateral screening mammogram with tomosynthesis; Future Screening, lipid - Lipid panel; Future Obesity (BMI 30.0-34.9) - Comprehensive metabolic panel; Future - TSH W/REFLEX TO FT4; Future - Lipid panel; Future -Discussed healthy eating habits. Limit caloric intake <1500kcal/day. Reviewed different diet options with patient including low calorie, reduced carbohydrate. Advised to investigate Weight Watchers as a possible diet plan. Recommended journaling food intake and exercise performance either using a simple paper/calendar system or downloading the [employer] application to track calorie consumption, food intake, exercise performance. Recommended starting with at least 150 minutes of exercise weekly and increase to a goal of 60 minutes per day. Discussed barriers to following treatment plan. Encounter for screening mammogram for malignant neoplasm of breast - Bilateral screening mammogram with tomosynthesis; Future Attention deficit hyperactivity disorder (ADHD), unspecified ADHD type (CMS/HCC) - DRUG MONITORING, PANEL 6 WITH CONFIRMATION, URINE; Future -Discussed switching to a different stimulant, she declines at this time. Continue medications as prescribed. Discussed lifestyle modifications to help manage symptoms. documented in this encounter [facility] 02-07-2024 History of Presen t illness Narrative Images from the original note were not included. Nasreen Hackett is a 38 y.o. female presents with chief complaint of URI HPI: HPI History of Present Illness The patient presents for evaluation of nasal congestion. She has been experiencing difficulty sleeping since last , which coincides with the onset of her symptoms. She reports a sensation of clogged ears, significant nasal congestion, and drainage. Additionally, she is suffering from a sore throat. Despite taking Tylenol, her symptoms persist. She also had a low-grade fever this morning and is experiencing a dry cough. SUBJECTIVE: MEDICATIONS: Current Outpatient Medications Medication Instructions amphetamine-dextroamphetamine (Adderall) 30 MG tablet 30 mg, Oral, 2 times daily buPROPion XL (WELLBUTRIN XL) 300 mg, Oral, Daily, Do not crush, chew, or split. valACYclovir (Valtrex) 500 MG tablet REVIEW OF SYMPTOMS: Review of Systems Constitutional: Positive for fatigue and fever. HENT: Positive for congestion, sinus pressure and sore throat. Respiratory: Positive for cough. Negative for shortness of breath and wheezing. OBJECTIVE: mVisit Vitals BP 120/80 (BP Location: Left arm, Patient Position: Sitting, BP Cuff Size: Large adult) Pulse 78 Temp 98.2 F (Oral) Ht 5' 2 Wt 177 lb 3.2 oz SpO2 97% BMI 32.41 kg/m Smoking Status Former BSA 1.88 m Physical Exam Vitals reviewed. Constitutional: Appearance: Normal appearance. HENT: Head: Normocephalic and atraumatic. Right Ear: There is impacted cerumen. Left Ear: Tympanic membrane normal. Nose: Congestion present. Right Turbinates: Swollen. Left Turbinates: Swollen. Mouth/Throat: Mouth: Mucous membranes are moist. Eyes: Pupils: Pupils are equal, round, and reactive to light. Cardiovascular: Rate and Rhythm: Normal rate and regular rhythm. Pulses: Normal pulses. Heart sounds: Normal heart sounds. Pulmonary: Effort: Pulmonary effort is normal. Breath sounds: Normal breath sounds. Musculoskeletal: Cervical back: Neck supple. Skin: General: Skin is warm and dry. Capillary Refill: Capillary refill takes less than 2 seconds. Findings: No rash. Neurological: General: No focal deficit present. Mental Status: She is alert and oriented to person, place, and time. ASSESSMENT AND PLAN: Assessment/Plan Diagnoses and all orders for this visit: Nasal congestion - STATUS COVID-19/FLU Acute non-recurrent pansinusitis - doxycycline (Vibra-Tabs) 100 MG tablet; Take 1 tablet (100 mg) by mouth in the morning and 1 tablet (100 mg) before bedtime. Do all this for 10 days. Take with a full glass of water and do not lie down for at least 30 minutes after.. - predniSONE (Deltasone) 20 MG tablet; Take 1 tablet (20 mg) by mouth in the morning and 1 tablet (20 mg) before bedtime. Do all this for 5 days. -Take antibiotics as prescribed, do not stop early. May take tylenol/motrin OTC prn for pain/fever. Increase oral intake of fluids to thin secretions. Saline nasal spray. May use throat lozenges and warm salt water gargles to alleviate sore throat. Humidified air. If symptoms do not improve in 48 hrs after starting antibiotics instructed patient to come to office for further evaluation. documented in this encounter [facility] 01-13-2024 Telephone encounter Note Form atting of this note might be different from the original. Pt says she doesn't need it until 01/16 [facility] 01-13-2024 Miscellaneous Notes Formattin g of this note might be different from the original. Pt says she doesn't need it until 01/16 documented in this encounter [facility] 12-13-2023 History of Presen t illness Narrative Nasreen Hackett is a 38 y.o. female presents with chief complaint of ADHD (/) HPI: HPI Patient presents to the office today for 3 month ADHD follow-up. She is having trouble getting a full 30 day script filled, will get partial fill. Does feel like the medication is helping her, is able to focus at work. Would like to discuss options for weight loss, wondering if adipex would work for her. Has had increased stress recently with her grandmother, believes she has broken heart syndrome. SUBJECTIVE: MEDICATIONS: Current Outpatient Medications Medication Instructions amphetamine-dextroamphetamine XR (Adderall XR) 30 MG 24 hr capsule 30 mg, Oral, Daily, Do not crush or chew. buPROPion XL (WELLBUTRIN XL) 300 mg, Oral, Daily, Do not crush, chew, or split. REVIEW OF SYMPTOMS: Review of Systems Constitutional: Negative. HENT: Negative. Eyes: Negative. Respiratory: Negative. Cardiovascular: Negative. Gastrointestinal: Negative. Genitourinary: Negative. Musculoskeletal: Negative. Skin: Negative. Neurological: Negative. OBJECTIVE: Visit Vitals BP 130/80 (BP Location: Left arm, Patient Position: Sitting, BP Cuff Size: Adult) Pulse 76 Ht 5' 2 Wt 175 lb 9.6 oz SpO2 99% BMI 32.12 kg/m Smoking Status Former BSA 1.87 m Physical Exam Vitals reviewed. Constitutional: Appearance: Normal appearance. HENT: Head: Normocephalic and atraumatic. Nose: Nose [...] and oriented to person, place, and time. ASSESSMENT AND PLAN: Assessment/Plan Diagnoses and all orders for this visit: ADHD (attention deficit hyperactivity disorder), inattentive type (CMS/HCC) - amphetamine-dextroamphetamine XR (Adderall XR) 30 MG 24 hr capsule; Take 1 capsule (30 mg) by mouth Daily Do not crush or chew. -Doing well on medication. Continue adderall as prescribed. PDMP reviewed Obesity (BMI 30.0-34.9) -Discussed medication options, not a candidate for adipex. Discussed GLP-1s but she does not believe her insurance covers weight loss medication. Will notify office if this changes. Encourage healthy eating habits, keep active documented in this encounter [facility] 01-20-2021 Evaluation note Encounter Date Diagnosis Assessment [...] treatment, may consider MRI for further evaluation. [facility] Other Evaluation note* Diagnosis ADHD (attention deficit hyperactivity disorder), inattentive type (CMS/HCC)- Primary Obesity (BMI 30.0-34.9) Encounter for wellness examination Screening, lipid Nasal congestion- Primary Other diseases of nasal cavity and sinuses Acute non-recurrent pansinusitis [facility] Diagnosis ADHD (attention deficit hyperactivity disorder), inattentive type (CMS/HCC)- Primary Obesity (BMI 30.0-34.9) Encounter for wellness examination Screening, lipid ADHD (attention deficit hyperactivity disorder), inattentive type (CMS/HCC) [facility] Diagnosis ADHD (attention deficit hyperactivity disorder), inattentive type (CMS/HCC)- Primary Obesity (BMI 30.0-34.9) Encounter for wellness examination Screening, lipid ADHD (attention deficit hyperactivity disorder), inattentive type (CMS/HCC) [facility] Diagnosis ADHD (attention deficit hyperactivity disorder), inattentive type (CMS/HCC)- Primary Obesity (BMI 30.0-34.9) [facility] Diagnosis ADHD (attention deficit hyperactivity disorder), inattentive type (CMS/HCC) [facility] Diagnosis ADHD (attention deficit hyperactivity disorder), inattentive type (CMS/HCC)- Primary Obesity (BMI 30.0-34.9) Encounter for wellness examination Screening, lipid ADHD (attention deficit hyperactivity disorder), inattentive type (CMS/HCC) [facility] Diagnosis ADHD (attention deficit hyperactivity disorder), inattentive type (CMS/HCC)- Primary Obesity (BMI 30.0-34.9) Encounter for wellness examination Screening, lipid Encounter for wellness examination- Primary Breast screening Breast screening, unspecified Screening, lipid Obesity (BMI 30.0-34.9) Encounter for screening mammogram for malignant neoplasm of breast Attention deficit hyperactivity disorder (ADHD), unspecified ADHD type (CMS/HCC) [facility] Diagnosis ADHD (attention deficit hyperactivity disorder), inattentive type (CMS/HCC)- Primary Obesity (BMI 30.0-34.9) Encounter for wellness examination Screening, lipid ADHD (attention deficit hyperactivity disorder), inattentive type (CMS/HCC) [facility] Diagnosis ADHD (attention deficit hyperactivity disorder), inattentive type (CMS/HCC)- Primary Obesity (BMI 30.0-34.9) Encounter for wellness examination Screening, lipid ADHD (attention deficit hyperactivity disorder), inattentive type (CMS/HCC) [facility] Diagnosis ADHD (attention deficit hyperactivity disorder), inattentive type (CMS/HCC)- Primary Obesity (BMI 30.0-34.9) Encounter for wellness examination Screening, lipid ADHD (attention deficit hyperactivity disorder), inattentive type (CMS/HCC) [facility] Diagnosis ADHD (attention deficit hyperactivity disorder), inattentive type- Primary Obesity (BMI 30.0-34.9) Encounter for wellness examination Screening, lipid ADHD (attention deficit hyperactivity disorder), inattentive type [facility] Diagnosis ADHD (attention deficit hyperactivity disorder), inattentive type- Primary Obesity (BMI 30.0-34.9) Encounter for wellness examination Screening, lipid ADHD (attention deficit hyperactivity disorder), inattentive type- Primary [facility] Diagnosis ADHD (attention deficit hyperactivity disorder), inattentive type- Primary Obesity (BMI 30.0-34.9) Encounter for wellness examination Screening, lipid ADHD (attention deficit hyperactivity disorder), inattentive type- Primary Well woman exam with routine gynecological exam Routine gynecological examination Encounter for screening mammogram for malignant neoplasm of breast Mixed stress and urge urinary incontinence Mixed incontinence urge and stress (male)(female) [facility] - Reported* Type Description Date Medical History uturus cancer Surgical History hysterectomy Surgical History tonsillectomy Hospitalization History childbirth Hospitalization History see surgical hx [facility] Other Summary Purpose Family History No Family History Records FoundNo Family History Records FoundNo Family History Records Found Advance Directives No Advanced Directives Records FoundNo Advanced Directives Records FoundNo Advanced Directives Records Found Reason for Referral Specialty Diagnoses / Procedures Referred By Contdarcie t Referred To Contact Diagnoses ADHD (attention deficit hyperactivity disorder), inattentive type (CMS/HCC) Samuel Granda NP [address] [place] [address] Referral ID Status Reason Start Date Expiration Date Visits Re quested Visits Authorized [id number] Closed 1 1 Additional Source Comments INFORMATION SOURCE (unrecogn ized section and content) DATE CREATED AUTHOR 10/13/2017 [facility] DATE CREATED AUTHOR AUTHOR'S ORGANIZ ATION 09/06/2022 [facility] DATE CREATED AUTHOR AUTHOR'S ORGANIZ ATION 10/15/2024 [facility] dical Specialists EPIC REASON FOR VISIT (unrecogniz ed section and content) Reason Comments URI Sx started . Reason Onset Date Comments Med Refill 02/10/2024 Reason Comments ADHD Reason Comments Annual Exam Reason Onset Date Comments Med Refill 07/04/2024 Reason Comments Med Refill Reason Comments Well Women Visit Care Teams (unrecognized sec tion and content) Wellness Consultant Relationship Specialty Start Date End Date Angie Bobby MD [address] [place] [address] PCP - General Family Medicine 05/31/23 La Nena Quintanilla DO [address] [place] [address] PCP - [facility] 07/25/23 Samuel Granda NP [address] [place] [address] Nurse Practitioner Family Medicine 05/31/23 Wellness Consultant Relationship Specialty Start Date End Date Angie Bobby MD [address] [place] [address] PCP - General Family Medicine 05/31/23 La Nena Quintanilla DO [address] [place] [address] PCP - [facility] 07/25/23 Samuel Granda NP [address] [place] [address] Nurse Practitioner Family Medicine 05/31/23 Wellness Consultant Relationship Specialty Start Date End Date Angie Bobby MD [address] [place] [address] PCP - General Family Medicine 05/31/23 La Nena Quintanilla DO [address] [place] [address] PCP - [facility] 07/25/23 Samuel Granda NP [address] [place] [address] Nurse Practitioner Family Medicine 05/31/23 Wellness Consultant Relationship Specialty Start Date End Date Angie Bobby MD [address] [place] [address] PCP - General Family Medicine 05/31/23 Samuel Granda NP [address] [place] [address] PCP - [facility] 01/24/24 Samuel Granda NP [address] [place] [address] Nurse Practitioner Family Medicine 05/31/23 Wellness Consultant Relationship Specialty Start Date End Date Angie Bobby MD [address] [place] [address] PCP - General Family Medicine 05/31/23 La Nena Quintanilla DO [address] [place] [address] PCP - [facility] 07/25/23 Samuel Granda NP [address] [place] [address] Nurse Practitioner Family Medicine 05/31/23 Wellness Consultant Relationship Specialty Start Date End Date Angie Bobby MD [address] [place] [address] PCP - General Family Medicine 05/31/23 La Nena Quintanilla DO [address] [place] [address] PCP - [facility] 07/25/23 Samuel Granda NP [address] [place] [address] Nurse Practitioner Family Medicine 05/31/23 Wellness Consultant Relationship Specialty Start Date End Date Angie Bobby MD [address] [place] [address] PCP - General Family Medicine 05/31/23 La Nena Quintanilla DO [address] [place] [address] PCP - [facility] 07/25/23 Samuel Granda NP [address] [place] [address] Nurse Practitioner Family Medicine 05/31/23 Wellness Consultant Relationship Specialty Start Date End Date Angie Bobby MD [address] [place] [address] PCP - General Family Medicine 05/31/23 Samuel Granda NP [address] [place] [address] PCP - [facility] 01/24/24 Samuel Granda NP [address] [place] [address] Nurse Practitioner Family Medicine 05/31/23 Wellness Consultant Relationship Specialty Start Date End Date Angie Bobby MD [address] [place] [address] PCP - General Family Medicine 05/31/23 Samuel Granda NP [address] [place] [address] PCP - [facility] 01/24/24 Samuel Granda NP [address] [place] [address] Nurse Practitioner Family Medicine 05/31/23 Wellness Consultant Relationship Specialty Start Date End Date Angie Bobby MD [address] [place] [address] PCP - General Family Medicine 05/31/23 Samuel Granda NP [address] [place] [address] PCP - [facility] 01/24/24 Samuel Granda NP [address] [place] [address] Nurse Practitioner Family Medicine 05/31/23 Wellness Consultant Relationship Specialty Start Date End Date Angie Bobby MD [address] [place] [address] PCP - General Family Medicine 05/31/23 Samuel Granda, AIDEE [address] [place] [address] PCP - [facility] 01/24/24 Samuel Granda, AIDEE [address] [place] [address] Nurse Practitioner Family Medicine 05/31/23 Wellness Consultant Relationship Specialty Start Date End Date Angie Bobby MD [address] [place] [address] PCP - General Family Medicine 05/31/23 Samuel Granda NP [address] [place] [address] PCP - [facility] 01/24/24 Samuel Granda, AIDEE [address] [place] [address] Nurse Practitioner Family Medicine 05/31/23 Wellness Consultant Relationship Specialty Start Date End Date Angie Bobby MD [address] [place] [address] PCP - General Family Medicine 05/31/23 Samuel Granda NP [address] [place] [address] PCP - [facility] 01/24/24 Samuel Granda NP [address] [place] [address] Nurse Practitioner Family Medicine 05/31/23 Wellness Consultant Relationship Specialty Start Date End Date Angie Bobby MD [address] [place] [address] PCP - General Family Medicine 05/31/23 Samuel Granda NP [address] [place] [address] PCP - [facility] 01/24/24 Samuel Granda NP [address] [place] [address] Nurse Practitioner Family Medicine 05/31/23 Wellness Consultant Relationship Specialty Start Date End Date Angie Bobby MD [address] [place] [address] PCP - General Family Medicine 05/31/23 Samuel Granda NP [address] [place] [address] PCP - [facility] 01/24/24 Samuel Granda NP [address] [place] [address] Nurse Practitioner Family Medicine 05/31/23 Wellness Consultant Relationship Specialty Start Date End Date Angie Bobby MD [address] [place] [address] PCP - General Family Medicine 05/31/23 Samuel Granda NP [address] [place] [address] PCP - [facility] 01/24/24 Samuel Granda NP [address] [place] [address] Nurse Practitioner Family Medicine 05/31/23 Wellness Consultant Relationship Specialty Start Date End Date Angie Bobby MD [address] [facility] [place], [place] [id number] PCP - General Family [facility] 05/31/23 Samuel Granda NP [address] [facility] [place], [place] [id number] PCP - [facility] 01/24/24 Samuel Granda NP [address] [facility] [place], [place] [id number] Nurse Practitioner Family [facility] 05/31/23 FOR RECORDS PERTAINING TO PATIENTS WHO ARE [...] BE BASED ON THE PRIMARY CLINICAL RECORDS. [facility] [employer] [facility]. provides no warranty or guarantee of the accuracy or completeness of information in this document.
[2024-12-10 10:08] LABS: Age Gdln ACOG Testing Note (.); IGP, Aptima HPV, rfx 16/18,45 Note (.)
== END 2024-12-06 12:41 | disposition home or self-care (01) ==
LOC: LAB 12:40
PROVIDERS: PCP Nurse Practitioner Family; Visit Provider Obstetrics & Gynecology
DX: Z01.419 Encounter for gynecological examination (general) (routine) without abnormal findings (principal)
CPT/HCPCS: 87624; 88175

== ENCOUNTER 2025-02-09 18:31 | Emergency (ER) | payer OTHER, SELFPAY ==
[2025-02-09 18:35] VITALS: BP 148/77; PULSE 61; TEMP 36.3; O2SAT 100; BMI 33.2
--- OUTSIDE RECORDS SUMMARY | 2025-02-09 18:53 | XMS_ITS | CCD ---
Author Organization [facility] Care Team Providers Care Lead Software Development Engineer Name Role Phone Arie Parks Unavailable Unavailable Arie Parks Unavailable Unavailable Olesummer Danny Unavailable DUNG HERNANDEZ Admitting Unavailable DUNG HERNANDEZ Attending Unavailable REQUEST, DR ROSALES LISTED Primary Care Unavaila DUNG Hassan Consulting Unavailable SOURAV, DR SAENZ Primary Care Unavailable REINJEREMY, DR WILFREDO Ramirez Admitting Unavailabl e REINECK, [...] Bobby MD Primary Care Provider Jesus Alberto DRAWBENCH OPERATOR HELPER, Sandra Unavailable La Nena Quintanilla DO Unavailable [place] DRAWBENCH OPERATOR HELPER, Sandra Unavailable SANDRA GRANDA Attending Unavailable SANDRA GRANDA Referring Unavailable SANDRA GRANDA Attending Unavailable YOSSI LAWTON Attending Unavailable SANDRA GRANDA Attending Unavailable JESUS ALBERTO, SANDRA Attending Unavailable ANGIE RIVER Primary Care Physician Richar STEELE Attending Unavailable ANGIE RIVER Primary Care Unavailable Richar STEELE Attending Unavailable Yossi LAWTON Referring Unavailable ANGIE RIVER Primary Care Unavailable Richar STEELE Attending Unavailable ANGIE RIVER Primary Care Unavailable Allergies Allergy Classification Reported Allergen(s) Allergy Type Date of Onset Reaction(s) Facility (1 source) A & D Drug allergy Unknown [email or web address] Other (1 source) bee venom Drug allergy (disorder) [facility] (1 source) A AND D Emollient Drug allergy (disorder) [facility] (5 sources) Lanolin / Petrolatum Drug Allergy [facility] (3 sources) dimethicone / Zinc Oxide; Translations: [vitamin A & D topical] Drug Allergy Eruption of skin (disorder) [facility] Medications Current Medications Medication Drug Class(es) Dates Sig (Normalized) Sig (Original) amphetamine aspartate 7.5 mg / amphetamine sulfate 7.5 mg / dextroamphetamine saccharate 7.5 mg / dextroamphetamine sulfate 7.5 mg oral tablet (20 sources) Central Nervous System Stimulant Start: 01-25-2025 take 1 tablet by mouth in the morning amphetamine-dextro amphetamine (Adderall) 30 MG tablet Indications: ADHD (attention deficit hyperactivity disorder), inattentive type Take 1 tablet (30 mg) by mouth in the morning and 1 tablet (30 mg) before bedtime. 60 tablet 01/25/2025 Active Start: 11-26-2024 End: 01-25-2025 amphetamine-dextroamphetamin e 30 mg oral tablet 30 mg, 1 tab(s), Refill(s) 0 Start Date: 12/31/24 Status: Ordered Repeat number: 1 Start: 09-28-2024 End: 11-21-2024 take 1 capsule [...] chew. 30 capsule 12/13/2023 01/12/2024 Active Berberine (5 sources) BERBERINE Daily Active doxycycline hyclate 100 [...] for 30 days Dec, Active Ibuprofen Active 24 hr mirabegron 50 mg extended release oral tablet (2 sources) beta3-Adrenergic Agonist Start: 12-31-2024 take 1 tablet by mouth once daily mirabegron 50 mg oral tablet, extended release 50 mg = 1 tab(s), Oral, Daily, # 30 tab(s), Refills(s) 11, Pharmacy: [facility]/pharmacy #[id number], 160, cm, 12/31/24 9:10:00 EDT, Height/Length Dosing, 82.6, kg, 12/31/24 9:10:00 EDT, Weight Dosing Start Date: 12/31/24 Status: Ordered Quantity: 30.0 Unit: tab(s) Repeat number: 12 Indications: Mixed incontinence; predniSONE 20 mg oral tablet (2 sources) [...] Nucleoside Analog DNA Polymerase Inhibitor Start: 01-30-2024 valacyclovir 500 mg Tab 500 mg = 1 tab(s), Refills(s) 0 Start Date: 12/31/24 Status: Ordered Repeat number: 1 Start: 12-28-2023 End: 01-27-2024 take 1 tablet [...] 180 tablet 09/13/2023 07/04/2024 Discontinued (Therapy completed) ciprofloxacin 500 mg oral tablet (1 source) Quinolone Antimicrobial Start: 12-31-2024 take 1 tablet by mouth once daily Cipro 500 mg Tab 500 mg = 1 tab(s), Oral, Daily, take one tab day before procedure and one tab after procedure, # 2 tab(s), Refills(s) 0, Pharmacy: [facility]/pharmacy #[id number], 160, cm, 12/31/24 9:10:00 EDT, Height/Length Dosing, 82.6, kg, 12/31/24 9:10:00 EDT, Weight Dosing Start Date: 12/31/24 Status: Ordered Quantity: 2.0 Unit: tab(s) Repeat number: 1 Problems Active Problems Problem Classification Problem Date Documented Date Episodic/Chronic Attention-deficit, conduct, and disruptive behavior disorders (20 sources) Attention deficit hyperactivity disorder, predominantly inattentive type; Translations: [Attention-deficit hyperactivity disorder, predominantly inattentive type] Onset: 12-23-2022 12-23-2022 Chronic Attention-deficit, conduct, and disruptive behavior disorders (4 sources) Attention deficit hyperactivity disorder; Translations: [Attention-deficit hyperactivity disorder, unspecified type] 07-04-2024 Chronic E Codes: Cut/pierceb (1 source) Contact with knife, initial encounter; Translations: [CONTACT WITH KNIFE INITIAL ENC] Onset: 09-06-2022 Episodic Genitourinary symptoms and ill-defined conditions (6 sources) Mixed urinary incontinence; Translations: [Mixed incontinence] Onset: 12-31-2024 12-06-2024 Chronic Open wounds of extremities (4 [...] Onset: 10-15-2021 Episodic Other upper respiratory disease (4 sources) Nasal congestion; Translations: [Nasal congestion] 02-07-2024 Episodic Other upper respiratory infections (4 sources) Acute pansinusitis; Translations: [Acute pansinusitis, unspecified] [...] HUMAN PAPILLOMAVIRUS] Onset: 10-15-2021 Episodic Mood disorders (18 sources) Mood disorders Onset: 07-04-2024 07-04-2024 Nausea and vomiting (2 sources) Nausea and vomiting Onset: 11-24-2023 12-26-2024 Episodic Other endocrine disorders (4 sources) Endocrine [...] Test Name Value Interpretation Reference Range Facility Urology Office/Clinic Noteon 01-22-2025 Urology Office/Clinic Note Urology Office/Clinic Note Chief Complaint Cysto HPI Staff Cysto ABX TAKEN History of Present Illness I have reviewed and verified the staff HPI to be accurate for this encounter. I have reviewed the previous health record information and history for this patient from Dr. Steele There have been no associated fever, chills, flank pain, or blood in the urine. Denies any urinary infections since last encounter. Review of Systems PHQ Score Initial Depression Screen Score: 0 SCORE ROS - Provider Constitutional: denies weight loss, denies hot flashes. Eyes: denies eye problems. Gastrointestinal: denies nausea, denies vomiting. Cardiovascular: denies chest pain or angina. Integumentary: no dryness Musculoskeletal: denies musculoskeletal symptoms. ENMT: denies otolaryngeal symptoms. Respiratory: no shortness of breath. Heme/Lymph: denies easy bleeding tendency, denies easy bruising tendency. Psychiatric: no confusion, no anxiety. Genitourinary: denies vaginal discharge, denies incontinence, denies dysuria, denies hematuria, denies urinary frequency, denies amenorrhea, denies menorrhagia, denies abnormal bleeding, denies pelvic pain, denies genital sores, and denies decreased libido. Physical Exam Vitals & Measurements HR: 82(Peripheral) RR: 18 BP: 146/98 HT: 160 cm HT: 63 in WT: 182.102 lb WT: 82.6 kg BMI: 32.27 General Appearance: alert , no acute distress, well nourished, well developed female. Genitourinary: bladder nonpalpable, no flank pain. Procedure Operative Information Anesthesia Type: Local Procedure: Local Cystoscopy Complications: None Surgical risks, benefits, details of the procedure have been explained to the patient. Full informed consent has been obtained. Intraoperative Information Prepped: Patient is brought back to the endoscopy suite. Patient is placed in modified dorso/lithotomy position. Patient prepped in the usual fashion with Betadine solution. 2% Xylocaine Jelly is placed per Urethra. After waiting several minutes, the Cystoscope is introduced. The Urethra is: Normal The Bladder: Normal No BT, Moderate stress incontinence with a stream during valsalva. Trabeculated: None (0) Grade 1-2 cystocele and posterior laxity The Ureteral orifices: Show efflux of clear urine Specimens Removed: None Removal: Cystoscope is removed. The patient tolerated it well. Postoperative Information Patient is discharged home with antibiotic coverage. Follow up arranged. Assessment/Plan 1. Mixed urinary incontinence (N39.46: Mixed incontinence) Leaking with jumping, standing, sneezing, coughing, and laughing. Wearing a pad which is very uncomfortable. Also unable to hold bladder when she has urge to go. Does not feel Kegels have helped. Hx of hysterectomy 6 yrs ago. Was found to have cystocele upon exam by Dr. Lawton ~1 month ago. Feels like bladder is falling out. Has to push it back up. Discussed TVT sling and sling with anterior repair, she does not want anything implanted. she should continue myrbetriq for now. If she wishes to proceed with surgery, can refer her to [facility] for procedure. 2. Midline cystocele (N81.11: Cystocele, midline) see #1 Patient interested in bulking agent. She will think about it, brochure was given. She will call if she would like to see proceed. f/u 6 month Follow-up With When Contact Information Richar STEELE MD, URL In 6 months [facility] [place] [id number]- Additional Instructions: Patient Education Overactive Bladder, Adult I, Babs Dukes, personally scribed for Dr. Steele on 01/22/2025 11:09:35. . Documentation recorded by the scribjimenez starkey, accurately reflects the services(s) I performed and decisions made by me. Authenticated by Dr. Steele on 01/22/2025 11:14:47. 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 Midline cystocele Mixed urinary incontinence Nasal congestion Nausea and vomiting Historical No qualifying data Procedure/Surgical History Cystoscopy and biopsy of bladder (01/22/2025), H/O: hysterectomy, History of tonsillectomy, Tubal ligation. Medications amphetamine-dextroamp hetamine 30 mg oral tablet, 30 mg= 1 tab(s) Cipro 500 mg Tab, 500 mg= 1 tab(s), Oral, Daily lidocaine Top 2% Gel w/Appl 6 mL, 6 mL, Topical, Once mirabegron 50 mg oral tablet, extended release, 50 mg= 1 tab(s), Oral, Daily, 11 refills valacyclovir 500 mg Tab, 500 mg= 1 tab(s) Allergies Protective Ointment with Vitamins A and D (Rash) Social History Tobacco Never (less than 100 in lifetime) Tobacco Use:. Never Smokeless Tobacco Use:., 01/22/2025 Family History Family history is negative Immunizations Vaccine Date Status measles/mumps/rubella virus vaccine 07/24/1997 Record (more content not included)... Normal [facility] Comment on above: Result Comment: Elec tronically Signed By: Richar STEELE MD\.br\Date and Time Signed: 01/22/25 11:14 EDT\.br\Electronically Co-Signed By: Babs Dukes.br\Date and Time Co-Signed: 01/22/25 11:10 EDT Ambulatory Visit Summaryon 0 12-31-2024 Ambulatory Visit Summary Ambulatory Visit Summary YOLANDA HACKETT :1985 Visit Date:12/31/2024 Ambulatory Visit Instructions Your Diagnosis Mixed urinary incontinence Midline cystocele Your Care Team Attending Physician - Richar STEELE MD Primary Care Physician - ANGIE RIVER Referring Physician - Yossi LAWTON DO This Is Your Medications List ciprofloxacin (Cipro 500 mg Tab) mirabegron (mirabegron 50 mg oral tablet, extended release) Contact prescribing physician if questions or concerns amphetamine-dextroamp hetamine (amphetamine-dextroam phetamine 30 mg oral tablet) valacyclovir (valacyclovir 500 mg Tab) Procedures Performed H/O: hysterectomy, History of tonsillectomy, Tubal ligation. Discharge Vitals Temperature (Tympanic) 36.7 ???C Heart Rate (Peripheral) 68 Blood Pressure 128/68 Height 160 cm Height 63 in Weight 82.6 kg Weight 182.102 lb BMI 32.27 What to do next You Need to Schedule the Following Appointments Follow Up with RICHARD MORA, Richar Kent, URL When: Comments: sched cysto w/ pelvic exam Where: [address] [place] [address] Medications What How Much When Why Instructions New ciprofloxacin (Cipro 500 mg Tab) 1 Tablets By Mouth Every day take one tab day before procedure and one tab after procedure Pickup at [facility]/pharmacy #[id number] New mirabegron (mirabegron 50 mg oral tablet, extended release) 1 Tablets By Mouth Every day Mixed urinary incontinence Refills: [address] [facility]/pharmacy #[id number] Unchanged amphetamine-dextroamp hetamine (amphetamine-dextroam phetamine 30 mg oral tablet) 1 Tablets Contact prescribing physician if questions or concerns Unchanged valacyclovir (valacyclovir 500 mg Tab) 1 Tablets Contact prescribing physician if questions or concerns Pharmacy Information [facility]/pharmacy #[id number]: [address], [place] [phone] Allergies Protective Ointment with Vitamins A and D (Rash) Problems Ongoing - Any problem that you are currently receiving treatment for. 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 Midline cystocele Mixed urinary incontinence Nasal congestion Nausea and vomiting Patient Survey You may receive a survey via text or e-mail asking about your office visit. Please share your experience with us by completing your survey. We appreciate your feedback and thank you for choosing us for your care. Education Materials Overactive Bladder, Adult Overactive bladder is a condition in which a person has a sudden and frequent need to urinate. A person might also leak urine if he or she cannot get to the bathroom fast enough (urinary incontinence). Sometimes, symptoms can interfere with work or social activities. What are the causes? Overactive bladder is associated with poor nerve signals between your bladder and your brain. Your bladder may get the signal to empty before it is full. You may also have very sensitive muscles that make your bladder squeeze too soon. This condition may also be caused by other factors, such as: ??? Medical conditions: ? Urinary tract infection. ? Infection of nearby tissues. ? Prostate enlargement. ? Bladder stones, inflammation, or tumors. ? Diabetes. ? Muscle or nerve weakness, especially from these conditions: ? A spinal cord injury. ? Stroke. ? Multiple sclerosis. ? Parkinson's disease. ??? Other causes: ? Surgery on the uterus or urethra. ? Drinking too much caffeine or alcohol. ? Certain medicines, especially those that eliminate extra fluid in the body (diuretics). ? Constipation. What increases the risk? You may be at greater risk for overactive bladder if you: ??? Are an older adult. ??? Smoke. ??? Are going through menopause. ??? Have prostate problems. ??? Have a neurological disease, such as stroke, dementia, Parkinson's disease, or multiple sclerosis (MS). ??? Eat or drink alcohol, spicy food, caffeine, and other things that irritate the bladder. ??? Are overweight or obese. What are the signs or symptoms? Symptoms of this condition include a sudden, strong urge to urinate. Other symptoms include: ??? Leaking urine. ??? Urinating 8 or more times a day. ??? Waking up to urinate 2 or more times overnight. How is this diagnosed? This condition may be diagnosed based on: ??? Your symptoms and medical history. ??? A physical exam. ??? Blood or urine tests to check for possible causes, such as infection. You may also need to see a health care provider who specializes in urinary tract problems. This is called a urologist. How is this treated? Treatment for overactive bladder depends on the cause of your condition and whether it is mild or severe. Treatment may include: ??? Bladder training, such as: ? Learning to c (more content not included)... Normal [facility] Ambulatory Visit Summary Ambulatory Visit Summary YOLANDA HACKETT :1985 Visit Date:12/31/2024 Ambulatory Visit Instructions Your Diagnosis Mixed urinary incontinence Midline cystocele Your Care Team Attending Physician - Richar STEELE MD Primary Care Physician - ANGIE RIVER Referring Physician - Yossi LAWTON DO This Is Your Medications List ciprofloxacin (Cipro 500 mg Tab) mirabegron (mirabegron 50 mg oral tablet, extended release) Contact prescribing physician if questions or concerns amphetamine-dextroamp hetamine (amphetamine-dextroam phetamine 30 mg oral tablet) valacyclovir (valacyclovir 500 mg Tab) Procedures Performed H/O: hysterectomy, History of tonsillectomy, Tubal ligation. Discharge Vitals Temperature (Tympanic) 36.7 ???C Heart Rate (Peripheral) 68 Blood Pressure 128/68 Height 160 cm Height 63 in Weight 82.6 kg Weight 182.102 lb BMI 32.27 What to do next You Need to Schedule the Following Appointments Follow Up with RICHARD MORA, Richar Kent, URL When: Comments: sched cysto w/ pelvic exam Where: [address] [place] [address] Medications What How Much When Why Instructions New ciprofloxacin (Cipro 500 mg Tab) 1 Tablets By Mouth Every day take one tab day before procedure and one tab after procedure Pickup at [facility]/pharmacy #[id number] New mirabegron (mirabegron 50 mg oral tablet, extended release) 1 Tablets By Mouth Every day Mixed urinary incontinence Refills: [address] [facility]/pharmacy #[id number] Unchanged amphetamine-dextroamp hetamine (amphetamine-dextroam phetamine 30 mg oral tablet) 1 Tablets Contact prescribing physician if questions or concerns Unchanged valacyclovir (valacyclovir 500 mg Tab) 1 Tablets Contact prescribing physician if questions or concerns Pharmacy Information [facility]/pharmacy #[id number]: [address], [place] [phone] Allergies Protective Ointment with Vitamins A and D (Rash) Problems Ongoing - Any problem that you are currently receiving treatment for. 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 Midline cystocele Mixed urinary incontinence Nasal congestion Nausea and vomiting Patient Survey You may receive a survey via text or e-mail asking about your office visit. Please share your experience with us by completing your survey. We appreciate your feedback and thank you for choosing us for your care. Education Materials Overactive Bladder, Adult Overactive bladder is a condition in which a person has a sudden and frequent need to urinate. A person might also leak urine if he or she cannot get to the bathroom fast enough (urinary incontinence). Sometimes, symptoms can interfere with work or social activities. What are the causes? Overactive bladder is associated with poor nerve signals between your bladder and your brain. Your bladder may get the signal to empty before it is full. You may also have very sensitive muscles that make your bladder squeeze too soon. This condition may also be caused by other factors, such as: ??? Medical conditions: ? Urinary tract infection. ? Infection of nearby tissues. ? Prostate enlargement. ? Bladder stones, inflammation, or tumors. ? Diabetes. ? Muscle or nerve weakness, especially from these conditions: ? A spinal cord injury. ? Stroke. ? Multiple sclerosis. ? Parkinson's disease. ??? Other causes: ? Surgery on the uterus or urethra. ? Drinking too much caffeine or alcohol. ? Certain medicines, especially those that eliminate extra fluid in the body (diuretics). ? Constipation. What increases the risk? You may be at greater risk for overactive bladder if you: ??? Are an older adult. ??? Smoke. ??? Are going through menopause. ??? Have prostate problems. ??? Have a neurological disease, such as stroke, dementia, Parkinson's disease, or multiple sclerosis (MS). ??? Eat or drink alcohol, spicy food, caffeine, and other things that irritate the bladder. ??? Are overweight or obese. What are the signs or symptoms? Symptoms of this condition include a sudden, strong urge to urinate. Other symptoms include: ??? Leaking urine. ??? Urinating 8 or more times a day. ??? Waking up to urinate 2 or more times overnight. How is this diagnosed? This condition may be diagnosed based on: ??? Your symptoms and medical history. ??? A physical exam. ??? Blood or urine tests to check for possible causes, such as infection. You may also need to see a health care provider who specializes in urinary tract problems. This is called a urologist. How is this treated? Treatment for overactive bladder depends on the cause of your condition and whether it is mild or severe. Treatment may include: ??? Bladder training, such as: ? Learning to c (more content not included)... Normal [facility] Ambulatory Visit Summary Ambulatory Visit Summary YOLANDA HACKETT :1985 Visit Date:12/31/2024 Ambulatory Visit Instructions Your Diagnosis Mixed urinary incontinence Midline cystocele Your Care Team Attending Physician - Richar STEELE MD Primary Care Physician - ANGIE RIVER Referring Physician - Yossi LAWTON DO This Is Your Medications List ciprofloxacin (Cipro 500 mg Tab) mirabegron (mirabegron 50 mg oral tablet, extended release) Contact prescribing physician if questions or concerns amphetamine-dextroamp hetamine (amphetamine-dextroam phetamine 30 mg oral tablet) valacyclovir (valacyclovir 500 mg Tab) Procedures Performed H/O: hysterectomy, History of tonsillectomy, Tubal ligation. Discharge Vitals Temperature (Tympanic) 36.7 ???C Heart Rate (Peripheral) 68 Blood Pressure 128/68 Height 160 cm Height 63 in Weight 82.6 kg Weight 182.102 lb BMI 32.27 What to do next You Need to Schedule the Following Appointments Follow Up with RICHARD MORA, Richar Kent, URJimenez When: Comments: sched cysto w/ pelvic exam Where: [address] [place] [address] [place] [address] Medications What How Much When Why Instructions New ciprofloxacin (Cipro 500 mg Tab) 1 Tablets By Mouth Every day take one tab day before procedure and one tab after procedure Pickup at [facility]/pharmacy #[id number] New mirabegron (mirabegron 50 mg oral tablet, extended release) 1 Tablets By Mouth Every day Mixed urinary incontinence Refills: [address] [facility]/pharmacy #6162 Unchanged amphetamine-dextroamp hetamine (amphetamine-dextroam phetamine 30 mg oral tablet) 1 Tablets Contact prescribing physician if questions or concerns Unchanged valacyclovir (valacyclovir 500 mg Tab) 1 Tablets Contact prescribing physician if questions or concerns Pharmacy Information [facility]/pharmacy #[id number]: [address], [place] [phone] Allergies Protective Ointment with Vitamins A and D (Rash) Problems Ongoing - Any problem that you are currently receiving treatment for. 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 Midline cystocele Mixed urinary incontinence Nasal congestion Nausea and vomiting Patient Survey You may receive a survey via text or e-mail asking about your office visit. Please share your experience with us by completing your survey. We appreciate your feedback and thank you for choosing us for your care. Education Materials Overactive Bladder, Adult Overactive bladder is a condition in which a person has a sudden and frequent need to urinate. A person might also leak urine if he or she cannot get to the bathroom fast enough (urinary incontinence). Sometimes, symptoms can interfere with work or social activities. What are the causes? Overactive bladder is associated with poor nerve signals between your bladder and your brain. Your bladder may get the signal to empty before it is full. You may also have very sensitive muscles that make your bladder squeeze too soon. This condition may also be caused by other factors, such as: ??? Medical conditions: ? Urinary tract infection. ? Infection of nearby tissues. ? Prostate enlargement. ? Bladder stones, inflammation, or tumors. ? Diabetes. ? Muscle or nerve weakness, especially from these conditions: ? A spinal cord injury. ? Stroke. ? Multiple sclerosis. ? Parkinson's disease. ??? Other causes: ? Surgery on the uterus or urethra. ? Drinking too much caffeine or alcohol. ? Certain medicines, especially those that eliminate extra fluid in the body (diuretics). ? Constipation. What increases the risk? You may be at greater risk for overactive bladder if you: ??? Are an older adult. ??? Smoke. ??? Are going through menopause. ??? Have prostate problems. ??? Have a neurological disease, such as stroke, dementia, Parkinson's disease, or multiple sclerosis (MS). ??? Eat or drink alcohol, spicy food, caffeine, and other things that irritate the bladder. ??? Are overweight or obese. What are the signs or symptoms? Symptoms of this condition include a sudden, strong urge to urinate. Other symptoms include: ??? Leaking urine. ??? Urinating 8 or more times a day. ??? Waking up to urinate 2 or more times overnight. How is this diagnosed? This condition may be diagnosed based on: ??? Your symptoms and medical history. ??? A physical exam. ??? Blood or urine tests to check for possible causes, such as infection. You may also need to see a health care provider who specializes in urinary tract problems. This is called a urologist. How is this treated? Treatment for overactive bladder depends on the cause of your condition and whether it is mild or severe. Treatment may include: ??? Bladder training, such as: ? Learning to c (more content not included)... Normal [facility] Urology Office/Clinic Noteon 12-31-2024 Urology Office/Clinic Note Urology Office/Clinic Note Chief Complaint new pt here for bladder leakage HPI Staff Pt is a 39 year old female new patient referred for urinary leakage S/P hysterectomy and has had bladder problems post surgery. Pt complains of having to wear a pad and stress incontinence Pt denies pain/burning denies visible blood denies flank pain Pt reports that she has tried Kegels with no relief PVR 52mL History of Present Illness Tests reviewed: reviewed UA, PVR, referral records I have reviewed the previous health record information and history for this patient from external providers. I have reviewed and verified the staff HPI to be accurate for this encounter. Review of Systems PHQ Score Initial Depression Screen Score: 0 SCORE ROS - Provider Constitutional: denies weight loss, denies hot flashes. Eyes: denies eye problems. Gastrointestinal: denies nausea, denies vomiting. Cardiovascular: denies chest pain or angina. Integumentary: no dryness Musculoskeletal: denies musculoskeletal symptoms. ENMT: denies otolaryngeal symptoms. Respiratory: no shortness of breath. Heme/Lymph: denies easy bleeding tendency, denies easy bruising tendency. Psychiatric: no confusion, no anxiety. Genitourinary: See HPI. Physical Exam Vitals & Measurements T: 36.7 ???C(Tympanic) HR: 68(Peripheral) BP: 128/68 HT: 63 in HT: 160 cm WT: 82.6 kg WT: 182.102 lb BMI: 32.27 General Appearance: alert , no acute distress, well nourished, well developed female. Assessment/Plan Yolanda is a 39 yo female new pt referred by Dr. Lawton for urinary leakage. 1. Mixed urinary incontinence (N39.46: Mixed incontinence) Leaking with jumping, standing, sneezing, coughing, and laughing. Wearing a pad which is very uncomfortable. Also unable to hold bladder when she has urge to go. Does not feel Kegels have helped. Hx of hysterectomy 6 yrs ago. Was found to have cystocele upon exam by Dr. Lawton ~1 month ago. Feels like bladder is falling out. Has to push it back up. PVR 52 mL. UA neg. Educated pt on pathophysiology of overactive bladder. Discussed tx options for FAUSTO include procedural intervention vs those for UUI include oral meds. Recommended starting med to help with OAB sxs and calm bladder before proceed with further intervention. Discussed beta3 agonists vs anticholinergics. Recommended trial of Mirabegron as pt feels insurance coverage is decent. Possible SEs discussed. Also discussed cysto with pelvic exam will need done to examine bladder health and significance of leakage. -Start Mirabegron ER 50 mg qd. Rx sent to [facility]. -Will schedule cystoscopy w/ pelvic exam. The risks and benefits for cystoscopy have been discussed. The risks include bleeding, infection, and irritation of the bladder and urinary channel, among others. The patient, after being informed of procedural details and after questions have been answered, wishes to proceed. Full informed consent has been obtained. Will order Local anesthesia. 2. Midline cystocele (N81.11: Cystocele, midline) See #1. Follow-up With When Contact Information RICHARD MORA, Richar Kent, URL [address] [place] [address] [place] [address] Additional Instructions: sched cysto w/ pelvic exam Patient Education Overactive Bladder, Adult Cystoscopy Ashley Long, personally scribed for Dr. Steele on 12/31/2024 09:43:12. . Documentation recorded by the scribeAshley, accurately reflects the services(s) I performed and decisions made by me. Authenticated by Dr. Steele on 12/31/2024 09:45:07. 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 Midline cystocele Mixed urinary incontinence Nasal congestion Nausea and vomiting Historical No qualifying data Procedure/Surgical History H/O: hysterectomy, History of tonsillectomy, Tubal ligation. Medications amphetamine-dextroamp hetamine 30 mg oral tablet, 30 mg= 1 tab(s) mirabegron 50 mg oral tablet, extended release, 50 mg= 1 tab(s), Oral, Daily, 11 refills valacyclovir 500 mg Tab, 500 mg= 1 tab(s) Allergies Protective Ointment with Vitamins A and D (Rash) Social History Tobacco Never (less than 100 in lifetime) Tobacco Use:. Never Smokeless Tobacco Use:., 12/31/2024 Immunizations Vaccine Date Status measles/mumps/rubella virus vaccine 07/24/1997 Recorded Lab Results Ambulatory Point of Care Results Bilirubin Urine Dipstick: Negative (12/31/24 09:07:00) Blood Urine Dipstick: Negative (12/31/24 09:07:00) Glucose Urine Dipstick: Negative (12/31/24 09:07:00) Ketones Urine Dipstick: 1+ 15 mg/dl (12/31/24 09:07:00) Leukocytes Urine Dipstick: Negative (12/31/24 09:07:00) Nitrite Urine Dipstick: Negative (12/31/24 09:07:00) Protein Urine Dipstick: Negative (12/31/24 09:07:00) Specific [place] Urine Dipstick: 1.025 (more content not included)... Normal [facility] Comment on above: Result Comment: Elec tronically Signed By: Richar STEELE MD\.br\Date and Time Signed: 12/31/24 09:45 EDT\.br\Electronically Co-Signed By: Ashley Allen.br\Date and Time Co-Signed: 12/31/24 09:43 EDT IGP,APTIMA HPV,AGE GDLNon AGE GDLN ACOG TESTING Note . [facility] Comment on above: TESTS RESULT FLAG [facility] REF RANGE [facility] Clinician Provided Cytology Information Source.............Vagina No. of containers..01 ThinPrep Vial Age Brad PICKETTOG Deidra... FLAG LEGEND: L-Low Normal,H-High Normal,LL-Alert Low,HH-Alert High <-Panic Low,>-Panic High,A-Abnormal,AA-Critical Abnormal Performed at: 01 =G [address] [address] Hailey Alatorre MD, HPV APTIMA Negative Negative [facility] Comment on above: This nucleic acid am plification test detects fourteen high- risk HPV types (16,18,31,33,35,39,45,51,52,56,58,59,66,68) without differentiation. Performed at: =[address] [id number] [employer]: Hailey Alatorre MD, Phone: [phone] Performed at: - [address] [id number] [employer]: Hailey Alatorre MD, Phone: [phone] IGP, APTIMA HPV, RFX 16/18,45 Note . [facility] Comment on above: TESTS RESULT FLAG [facility] REF RANGE LAB DIAGNOSIS: 02 NEGATIVE FOR INTRAEPITHELIAL LESION OR MALIGNANCY. Specimen adequacy: 02 Satisfactory for evaluation. Performed by: 02 Kitty [employer]s Pick Up And Delivery Driver ([facility]) . 02 Note: Note 02 The Pap smear is a screening test designed to aid in the detection of premalignant and malignant conditions of the uterine cervix. It is not a diagnostic procedure and should not be used as the sole means of detecting cervical cancer. Both false-positive and false-negative reports do occur. Test Methodology: Note 02 This liquid based ThinPrep(R) pap test was screened with the use of an image guided system. HPV Genotype Reflex Note 02 Criteria not met, HPV Genotype not performed. FLAG LEGEND: L-Low Normal,H-High Normal,LL-Alert Low,HH-Alert High <-Panic Low,>-Panic High,A-Abnormal,AA-Critical Abnormal Performed at: [address] [address] Hailey Alatorre MD, SPATULA-ALONE VAGINA [facility] BI MAMMOGRAM SCREENING TOMOS YNTHESIS BILATERALon 10-10-2024 [...] (COVID-19) RNA NEAL+probe Ql (Unsp spec) - [facility] No Panel Informationon 02-06 FLU A - [facility] FLU B - [facility] Interpretation and review of laboratory results Normal [facility] XR WRIST RT MIN 3 Von 2022 [...] ELISEO PATEL Date: 2022-06-06 09:14 Normal [facility] TESTOSTERONE, FREE,DIRECT, T OTALon 03-31-2022 Free Testosterone(Direct) 2.8 pg/mL Normal 0.0-4.2 [facility] Comment on above: Result Comment: Perf ormed at: BN Performed By: #### T ESTFRD #### [facility] [address] [address] [address] Jorge Munoz Testosterone [Mass/Vol] 32 ng/dL Normal 8-60 [facility] Comment on above: Result Comment: Perf ormed at: CB Performed By: #### T ESTFRD #### [facility] [address] [address] [address] Jorge Munoz CORTISOLon 03-30-2022 Cortisol 11.0 ug/dL Normal [facility] Comment on above: Result Comment: Rosalino isol AM 6.2 - 19.4 Cortisol PM 2.3 - 11.9 Performed By: #### C ORTISO #### [facility] [address] [place], [place] [address] Dr. Jorge Munoz ESTRONEon 03-30-2022 Estrone, Serum 116 pg/mL Normal 27-231 [facility] Comment on above: Result Comment: Rang e Adult (Premenopausal) 27 - 231 Menstrual Cycle (1-10 days) 19 - 149 Menstrual Cycle (11-20 days) 32 - 176 Menstrual Cycle (21-30 days) 37 - 200 Performed By: #### E STRONE #### [facility] [address] [place], [place] [address] Dr. Jorge Munoz DHEA-SULFATEon 03-28-2022 DHEA-Sulfate 229.0 ug/dL Normal 57.3-279.2 [facility] Comment on above: Performed By: #### D HEASUL ####[facility] [id number] [id number][address] Jorge Munoz ESTRADIOLon 03-28-2022 Estradiol 278.0 pg/mL Normal [facility] Comment on above: Result Comment: Adul t Female: Follicular phase 12.5 - 166.0 Ovulation phase 85.8 - 498.0 Luteal phase 43.8 - 211.0 Postmenopausal <6.0 - 54.7 1st trimester 215.0 - >4300.0 [place] ECLIA methodology Performed By: #### E STRADI ####[facility] [id number] [id number]. Jorge Munoz PROGESTERONEon 03-28-2022 Progesterone 13.9 ng/mL Normal [facility] Comment on above: Result Comment: Foll icular phase 0.1 - 0.9 Luteal phase 1.8 - 23.9 Ovulation phase 0.1 - 12.0 First trimester 11.0 - 44.3 Second trimester 25.4 - 83.3 Third trimester 58.7 - 214.0 Postmenopausal 0.0 - 0.1 Performed By: #### P INGE #### [facility] [address] [place], [place] [address] Dr. Jorge Munoz SEX HORMONE-BINDING GLOBULIN on 03-28-2022 Sex Horm Binding Glob, Serum 66.0 nmol/L Normal 24.6-122.0 [facility] Comment on above: Performed By: #### S EXHBG #### [facility] [address] [place] [address] Dr. Jorge Munoz VITAMIN D 25 OHon 03-27-2022 VIT D 25-OH 31.2 ng/mL Normal [facility] Comment on above: Performed By: #### V ITAD #### [facility] [address] [address] [address] Jorge Munoz VIT D RANGES SEE BELOW [facility] Comment on above: Result Comment: <20 ng/mL Vit D deficient 20 - <30 ng/mL Vit D insufficient 30 - 100 ng/mL Vit D sufficient >100 ng/mL Potential Toxicity Performed By: #### V ITAD #### [facility] [address] [place] [address] Dr. Jorge Munoz PAP ACOG PANEL 2: 30 to 65on 10-19-2021 . . Normal [facility] Comment on above: Result Comment: Perf ormed at: WB Performed By: #### [id number] #### [facility] [address] [place] [address] Dr. Jorge Munoz Age Gdln ACOG Testing 30-65 Normal [facility] Comment on above: Performed By: #### [id number] #### [facility] [address] [place] [address] Dr. Jorge Munoz DIAGNOSIS: Comment Normal [facility] Comment on above: Result Comment: NEGA TIVE FOR INTRAEPITHELIAL LESION OR MALIGNANCY. Performed at: WB Performed By: #### [id number] #### [facility] [address] [place] [address] Dr. Jorge Munoz HPV Aptima Negative Normal Negative [facility] Comment on above: Result Comment: This nucleic acid amplification test detects fourteen high-risk HPV types (16,18,31,33,35,39,45,51,52,56,58,59,66,68) without differentiation. Performed at: =G Performed By: #### [id number] #### [facility] [address] [place] [address] Dr. Jorge Munoz Methodology: Comment Normal [facility] Comment on above: Result Comment: This liquid based ThinPrep(R) pap test was screened with the use of an image guided system. Performed at: WB Performed By: #### [id number] #### [facility] [address] [place] [address] Dr. Jorge Munoz Note: Comment Normal [facility] Comment on above: Result Comment: The Pap smear is a screening test designed to aid in the detection of premalignant and malignant conditions of the uterine cervix. It is not a diagnostic procedure and should not be used as the sole means of detecting cervical cancer. Both false-positive and false-negative reports do occur. . Performed at: WB Performed By: #### [id number] #### [facility] [address] [place] [address] Dr. Jorge Munoz Performed by: Comment Normal [facility] Comment on above: Result Comment: Alyson De La Cruz History Tutor (ASCP) Performed at: WB Performed By: #### [id number] #### [facility] [address] [place] [address] Dr. Jorge Munoz Specimen adequacy: Comment Normal [facility] Comment on above: Result Comment: Sati sfactory for evaluation. No endocervical component is identified. Performed at: WB Performed By: #### [id number] #### [facility] [address] [place] [address] Dr. Jorge Munoz ER URINE PROFILEon 2 Bilirubin Ql (U) Negative Normal NEGATIVE [facility] Comment on above: Performed By: #### Marvin HADDAD UMICRO #### [facility] [address] [place] [address] Dr. Jorge Munoz Clarity (U) CLEAR Normal CLEAR [facility] Comment on above: Performed By: #### Marvin HADDAD UMICRO #### [facility] [address] [place] [address] Dr. Jorge Munoz Color (U) LT. YELLOW Normal YELLOW [facility] Comment on above: Performed By: #### E ALAN HADDADICRO #### [facility] [address] [place] [address] Dr. Jorge DYKES A micrscopic examination will be performed if indicated. Normal [facility] Comment on above: Performed By: #### PATRICK BIRDRO #### [facility] [address] [place] [address] Dr. Jorge Munoz Glucose Ql (U) Negative Normal NEGATIVE [facility] Comment on above: Performed By: #### Marvin HADDAD UMICRO #### [facility] [address] [place] [address] Dr. Jorge Munoz Hemoglobin Ql (U) MODERATE Abnormal NEGATIVE The [facility] Comment on above: Performed By: #### PATRICK BIRDRO #### [facility] [address] [place] [address] Dr. Jorge Munoz Ketones Ql (U) Negative Normal NEGATIVE [facility] Comment on above: Performed By: #### PATRICK BIRDRO #### [facility] [address] [place] [address] Dr. Jorge Munoz LEUKOCYTES TRACE Abnormal NEGATIVE [facility] Comment on above: Performed By: #### PATRICK BIRDRO #### [facility] [address] [place] [address] Dr. Jorge Munoz Nitrite Ql (U) Negative Normal NEGATIVE [facility] Comment on above: Performed By: #### PATRICK BIRDRO #### [facility] [address] [place] [address] Dr. Jorge Munoz pH (U) 6.0 [pH] Normal 5-9 [facility] Comment on above: Performed By: #### PATRICK BIRDRO #### [facility] [address] [place] [address] Dr. Jorge Munoz SPEC GRAVITY 1.025 Normal 1.005-<=1.025 [facility] Comment on above: Performed By: #### PATRICK BIRDRO #### [facility] [address] [place] [address] Dr. Jorge Munoz UA PROTEIN Negative Normal NEGATIVE/ TRACE [facility] Comment on above: Performed By: #### E RUR, UMICRO #### [facility] [address] [place] [address] Dr. Jorge Munoz UR MICRO IND INDICATED Normal [facility] Comment on above: Performed By: #### E RUR, UMICRO #### [facility] [address] [place] [address] Dr. Jorge Munoz Urobilinogen Qn (U) 0.2 {Darren'U}/dL Normal 0.2 - 1. 0 [facility] Comment on above: Performed By: #### E RUR, UMICRO #### [facility] [address] [place] [address] Dr. Jorge Munoz URINE MICROSCOPIC ONLYon BACTERIA NONE SEEN Normal NONE SEEN [facility] Comment on above: Performed By: #### E RUR UMICRO #### [facility] [address] [place] [address] Dr. Jorge Munoz Bacteria identified Cx Nom (U) NOT INDICATED Normal [facility] Comment on above: Performed By: #### E EKATERINAR, UMICRO #### [facility] [address] [place] [address] Dr. Jorge Munoz CAST NONE SEEN Normal NONE SEEN [facility] Comment on above: Performed By: #### E RUR, UMICRO #### [facility] [address] [place] [address] Dr. Jorge Munoz Crystals LM Nom (Urine sed) NONE SEEN Normal NONE SEEN [facility] Comment on above: Performed By: #### E RUR, UMICRO #### [facility] [address] [place] [address] Dr. Jorge Munoz Epithelial cells LM Ql (Urine sed) MANY Abnormal NONE SEEN /RARE [facility] Comment on above: Performed By: #### E RUR, UMICRO #### [facility] [address] [place] [address] Dr. Jorge Munoz MUCOUS TRACE Abnormal NONE SEEN [facility] Comment on above: Performed By: #### E PATRICK HADDADRO #### [facility] [address] [place], [place] [address] Dr. Jorge Munoz RBC 20-50 Abnormal 0-2 [facility] Comment on above: Performed By: #### ALAN BIRDICRO #### [facility] [address] [place], [place] [address] Dr. Jorge Munoz WBC 0-2 Abnormal NONE SEEN [facility] Comment on above: Performed By: #### Marvin HADDAD UMICRO #### [facility] [address] [place], [place] [address] Dr. Jorge Munoz Vital Signs Date Time Vital Sign Value Performing Clinician Facility 12-03-2024 14:00-0400 Body mass index (BMI) [Ratio] 32.19 kg/m2 Sandra Granda DRAWBENCH OPERATOR HELPER Work Phone: [facility] 12-03-2024 14:00-0400 Body weight 79.83 kg Sandra Granda DRAWBENCH OPERATOR HELPER Work Phone: [facility] 12-03-2024 14:00-0400 Diastolic blood pressure 78 mm[Hg] Sandra Granda DRAWBENCH OPERATOR HELPER Work Phone: [facility] 12-03-2024 14:00-0400 Heart rate 76 /min Sandra Granda DRAWBENCH OPERATOR HELPER Work Phone: [facility] 12-03-2024 14:00-0400 SaO2% (BldA) [Mass fraction] 95 % Sandra Granda DRAWBENCH OPERATOR HELPER Work Phone: [facility] 12-03-2024 14:00-0400 Systolic blood pressure 114 mm[Hg] Sandra Granda DRAWBENCH OPERATOR HELPER Work Phone: [facility] 07-04-2024 14:35-0400 Body mass index (BMI) [Ratio] 32.04 kg/m2 Sandra Granda DRAWBENCH OPERATOR HELPER Work Phone: [facility] 07-04-2024 14:35-0400 Body temperature 97.2 [degF] Sandra Paredespatricia DRAWBENCH OPERATOR HELPER Work Phone: [facility] 07-04-2024 14:35-0400 Body weight 79.47 kg Sandra Granda DRAWBENCH OPERATOR HELPER Work Phone: [facility] 07-04-2024 14:35-0400 Diastolic blood pressure 84 mm[Hg] Sandra Granda DRAWBENCH OPERATOR HELPER Work Phone: [facility] 07-04-2024 14:35-0400 Systolic blood pressure 128 mm[Hg] Sandra Granda DRAWBENCH OPERATOR HELPER Work Phone: [facility] 02-07-2024 14:33-0400 Body height 157.5 cm Sandra Granda DRAWBENCH OPERATOR HELPER Work Phone: [facility] 02-07-2024 14:33-0400 Body mass index (BMI) [Ratio] 32.41 kg/m2 Sandra Granda DRAWBENCH OPERATOR HELPER Work Phone: [facility] 02-07-2024 14:33-0400 Body temperature 98.2 [degF] Sandra Granda DRAWBENCH OPERATOR HELPER Work Phone: [facility] 02-07-2024 14:33-0400 Body weight 80.38 kg Sandra Granda DRAWBENCH OPERATOR HELPER Work Phone: [facility] 02-07-2024 14:33-0400 Diastolic blood pressure 80 mm[Hg] Sandra Granda DRAWBENCH OPERATOR HELPER Work Phone: [facility] 02-07-2024 14:33-0400 Heart rate 78 /min Sandra Granda DRAWBENCH OPERATOR HELPER Work Phone: [facility] 02-07-2024 14:33-0400 SaO2% (BldA) [Mass fraction] 97 % Sandra Granda DRAWBENCH OPERATOR HELPER Work Phone: [facility] 02-07-2024 14:33-0400 Systolic blood pressure 120 mm[Hg] Sandra Granda DRAWBENCH OPERATOR HELPER Work Phone: [facility] 12-13-2023 17:28-0400 Diastolic blood pressure 80 mm[Hg] Sandra Granda DRAWBENCH OPERATOR HELPER Work Phone: [facility] 12-13-2023 17:28-0400 Systolic blood pressure 130 mm[Hg] Sandra Granda DRAWBENCH OPERATOR HELPER Work Phone: [facility] 12-13-2023 17:21-0400 Body height 157.5 cm Sandra Granda DRAWBENCH OPERATOR HELPER Work Phone: [facility] 12-13-2023 17:21-0400 Body mass index (BMI) [Ratio] 32.12 kg/m2 Sandra Granda DRAWBENCH OPERATOR HELPER Work Phone: [facility] 12-13-2023 17:21-0400 Body weight 79.65 kg Sandra Granda DRAWBENCH OPERATOR HELPER Work Phone: [facility] 12-13-2023 17:21-0400 Heart rate 76 /min Sandra Granda DRAWBENCH OPERATOR HELPER Work Phone: [facility] 12-13-2023 17:21-0400 SaO2% (BldA) [Mass fraction] 99 % Sandra Granda DRAWBENCH OPERATOR HELPER Work Phone: [facility] 01-20-2021 14:15-0400 Body height Danny Olexa Other [employer] [facility] [employer] Other 01-20-2021 14:15-0400 Body mass index (BMI) [Ratio] 26.45 kg/m2 Danny Olexa Other [email or web address] Other 01-20-2021 14:15-0400 Body weight 63.5 kg Danny Olexa Other [email or web address] Other Encounters Encounter Date Encounter Type Care Provider Facility Start: 01-25-2025 End: 01-25-2025 Dawit Bobby MD Work Phone: [facility] Comment on above: ADHD (attention defi cit hyperactivity disorder), inattentive type Start: 01-22-2025 End: 01-22-2025 ambulatory Richar STEELE Facility:[facility] Start: 01-22-2025 End: 01-22-2025 Patient encounter procedure Richar STEELE [facility] [facility] Start: 01-22-2025 ambulatory Richar STEELE Facili ty:CD:[id number] Start: 12-31-2024 End: 12-31-2024 ambulatory Richar STEELE Facility:[facility] Start: 12-31-2024 End: 12-31-2024 Patient encounter procedure Richar STEELE [facility] Start: 12-26-2024 End: 12-26-2024 Dawit Bobby MD Work Phone: [facility] Patient Education Comment on above: ADHD (attention defi cit hyperactivity disorder), inattentive type Start: 12-07-2024 ambulatory Richar STEELE [facility] Start: 12-06-2024 End: 12-06-2024 Bamboo flowsheet Yossi Jered DO Work Phone: [facility] Start: 12-06-2024 End: 12-10-2024 Bamboo flowsheet Yossi Jered DO Work Phone: [facility] Start: 12-06-2024 End: 12-10-2024 Clinisync Result Encounter Yossi Jered DO Work Phone: [facility] Unsolicited Start: 12-06-2024 End: 12-06-2024 Patient encounter procedure Yossi Jered DO Work Phone: [facility] Start: 12-06-2024 End: 12-06-2024 Periodic preventive med est patient 40-64yrs Yossi Jered DO Work Phone: [facility] Comment on above: Well woman exam with routine gynecological exam; Encounter for screening mammogram for malignant neoplasm of breast; Mixed stress and urge urinary incontinence Start: 12-06-2024 End: 12-06-2024 ambulatory YOSSI JERED Not Available Start: 12-03-2024 End: 12-03-2024 Bamboo flowsheet Sandra Granda DRAWBENCH OPERATOR HELPER Work Phone: [facility] Start: 12-03-2024 End: 12-03-2024 Bamboo flowsheet Sandra Granda DRAWBENCH OPERATOR HELPER Work Phone: [facility] Start: 12-03-2024 End: 12-03-2024 Office outpatient visit 15 minutes Sandra Youngashleepatricia DRAWBENCH OPERATOR HELPER Work Phone: [facility] Comment on above: ADHD (attention defi cit hyperactivity disorder), inattentive type (Primary Dx) Start: 12-03-2024 End: 12-03-2024 ambulatory SANDRA YOUNGAshleePATRICIA Not Available Start: 10-22-2024 End: 10-22-2024 Refill Angie Bobby MD Work Phone: [facility] Comment on above: ADHD (attention defi cit hyperactivity disorder), inattentive type Start: 10-10-2024 End: 10-10-2024 Telephone encounter Angie Bobby MD Work Phone: [facility] Start: 10-10-2024 End: 10-10-2024 ambulatory SANDRA GRANDA Not Available Start: 09-28-2024 End: 09-28-2024 Refill Angie Bobby MD Work Phone: [facility] Comment on above: ADHD (attention defi cit hyperactivity disorder), inattentive type (CMS/HCC) Start: 08-23-2024 End: 08-31-2024 Refill Sandra Jesus Alberto DRAWBENCH OPERATOR HELPER Work Phone: [facility] Comment on above: ADHD (attention defi cit hyperactivity disorder), inattentive type (CMS/HCC) Start: 08-01-2024 End: 08-01-2024 Refill Angie Bobby MD Work Phone: [facility] Comment on above: ADHD (attention defi cit hyperactivity disorder), inattentive type (CMS/HCC) Start: 07-05-2024 End: 07-05-2024 Telephone encounter Angie Bobby MD Work Phone: [facility] Start: 07-04-2024 End: 07-04-2024 Patient encounter status Sandra Granda DRAWBENCH OPERATOR HELPER Work Phone: [facility] Work Phone: Start: 07-04-2024 End: 07-04-2024 Periodic preventive med est patient 18-39 yrs Sandra Granda DRAWBENCH OPERATOR HELPER Work Phone: [facility] Comment on above: Encounter for wellne ss examination (Primary Dx); Breast screening; Screening, lipid; Obesity (BMI 30.0-34.9); Encounter for screening mammogram for malignant neoplasm of breast; Attention deficit hyperactivity disorder (ADHD), unspecified ADHD type (CMS/HCC) Start: 07-04-2024 End: 07-04-2024 Bamboo flowsheet Sandra Granda DRAWBENCH OPERATOR HELPER Work Phone: [facility] Start: 07-04-2024 End: 07-04-2024 Bamboo flowsheet Sandra Granda DRAWBENCH OPERATOR HELPER Work Phone: [facility] Start: 07-04-2024 End: 07-05-2024 Refill Sandra Granda DRAWBENCH OPERATOR HELPER Work Phone: [facility] Comment on [...] type (CMS/HCC) Start: 02-10-2024 End: 02-13-2024 Refill Sandra Granda DRAWBENCH OPERATOR HELPER Work Phone: [facility] Comment on above: ADHD (attention defi cit hyperactivity disorder), inattentive type (CMS/HCC) Start: 02-07-2024 End: 02-07-2024 Office outpatient visit 15 minutes Sandra Granda DRAWBENCH OPERATOR HELPER Work Phone: [facility] Comment on above: Nasal congestion (Pr imary Dx); Acute non-recurrent pansinusitis Start: 02-07-2024 End: 02-07-2024 ambulatory SANDRA GRANDA Not Available Start: 02-07-2024 End: 02-07-2024 Bamboo flowsheet Sandra Granda DRAWBENCH OPERATOR HELPER Work Phone: [facility] Start: 02-07-2024 End: 02-07-2024 Bamboo flowsheet Sandra Granda DRAWBENCH OPERATOR HELPER Work Phone: [facility] Start: 01-13-2024 End: 01-13-2024 Telephone encounter Angie Bobby MD Work Phone: [facility] Start: 12-19-2023 End: 12-19-2023 Telephone encounter Angie Bobby MD Work Phone: [facility] Start: 12-13-2023 End: 12-13-2023 Office outpatient visit 25 minutes Sandra Granda DRAWBENCH OPERATOR HELPER Work Phone: [facility] Comment on above: ADHD (attention defi cit hyperactivity disorder), inattentive type (CMS/HCC) (Primary Dx); Obesity (BMI 30.0-34.9) Start: 12-13-2023 End: 12-13-2023 ambulatory SANDRA GRANDA Not Available Start: 12-13-2023 End: 12-13-2023 Bamboo flowsheet Sandra Jesus Alberto DRAWBENCH OPERATOR HELPER Work Phone: [facility] Start: 12-13-2023 End: 12-13-2023 Bamboo flowsheet Sandra Youngleland DRAWBENCH OPERATOR HELPER Work Phone: [facility] Start: 09-04-2022 End: 09-04-2022 ambulatory DUNG HERNANDEZ Facility:[facility] Start: 06-06-2022 End: 06-06-[address] DANY BENJAMIN Facility:[facility] Start: 03-27-2022 End: 03-28-[address] YOSSI LAWTON . Facility:[facility] Start: 10-15-2021 End: 10-15-[address] YOSSI LAWTON . Facility:[facility] Start: 10-01-2021 End: 10-01-[address] DANY BENJAMIN Facility:[facility] Start: 01-20-2021 Office outpatient ne w 30 minutes Danny Mckenna [facility] Start: 08-25-2017 End: 08-26-2017 Ambulatory Arie Parks Facility:[id number] Procedures Date Procedure Procedure Detail Performing Clinician Start: 01-22-2025 Cystoscopy and biops y of bladder Richar STEELE Start: 12-06-2024 IGP,APTIMA HPV,AGE GDLN Yossi Lawton DO Work Phone: Start: 10-10-2024 Mammography Angie cook MD Work Phone: Start: 02-07-2024 STATUS COVID-19/FLU Shantell mayen Jesus Alberto DRAWBENCH OPERATOR HELPER Work Phone: Start: 12-23-2022 H/O: hysterectomy S/P hysterectomy S didier Granda NP Work Phone: H/O: hysterectomy Richar LAY History of tonsillectomy Nola STEELE Ligation of fallopian tube P lizbeth STEELE Plan of Treatment Date Care Activity Detail Author Start: 12-10-2025 End: 12-10-2025 Patient encounter procedure 12/10/2025 10:00 AM EDT Procedure Visit [facility] [address] [place] [address] Yossi Lawton, DO [address] [place] [address] [facility] Start: 10-10-2025 Screening for malign ant neoplasm of breast Mammogram [facility] Start: 12-24-2024 Influenza vaccination [facility] Start: 12-06-2024 End: 12-06-2024 Patient encounter procedure [facility] Comment on above: Arrived Start: 10-22-2024 Influenza vaccination Influenza Vacc ine (#1) [facility] Comment on above: Postponed from 12/24 (Supply/Drug Shortage) Start: 10-10-2024 End: 10-10-2024 Professional / ancillary services management 10/10/2024 9:00 AM EDT Ancillary Procedure [facility] [place] [facility] [address] [place] [id number] [facility] [place] [facility] Start: 2024 End: 09-03-2025 DBT Breast - bilateral screening Bilateral screening mammogram with tomosynthesis Imaging Routine Breast screening Encounter for screening mammogram for malignant neoplasm of breast Expected: 2024, Expires: 09/03/2025 [facility] Work Phone: Comment on above: Expected: 2024 , Expires: 09/03/2025 Start: 2024 Screening for malign ant neoplasm of breast Mammogram [facility] Start: 07-12-2024 End: 07-12-2024 Patient encounter procedure 07/12/2024 9:00 AM EDT Office Visit [facility] [address] [place] [id number] Yossi Lawton, DO [address] [place], [place] [id number] [facility] Start: 07-04-2024 End: 07-04-2024 Patient encounter procedure 07/04/2024 2:30 PM EDT Office Visit [facility] [address] [place] [address] Sandra Granda NP [address] [place] [address] Arrived [facility] Comment on above: Arrived Start: 07-04-2024 End: 07-04-2025 Comprehensive metabolic 2000 panel - Serum or Plasma Comprehensive metabolic panel Lab Routine Encounter for wellness examination Obesity (BMI 30.0-34.9) Expected: 07/04/2024 (Approximate), Expires: 07/04/2025 [facility] Comment on above: Expected: 07/04/2024 (Approximate), Expires: 07/04/2025 Start: 07-04-2024 End: 07-04-2025 DRUG MONITORING, PANEL 6 WITH CONFIRMATION, URINE DRUG MONITORING, PANEL 6 WITH CONFIRMATION, URINE Lab Routine Attention deficit hyperactivity disorder (ADHD), unspecified ADHD type ([facility]) Expected: 07/04/2024 (Approximate), Expires: 07/04/2025 [facility] Comment on above: Expected: 07/04/2024 (Approximate), Expires: 07/04/2025 Start: 07-04-2024 End: 07-04-2025 Lipid 1996 panel - Serum or Plasma Lipid panel Lab Routine Encounter for wellness examination Screening, lipid Obesity (BMI 30.0-34.9) Expected: 07/04/2024 (Approximate), Expires: 07/04/2025 [facility] Comment on above: Expected: 07/04/2024 (Approximate), Expires: 07/04/2025 Start: 07-04-2024 End: 07-04-2025 TSH W/REFLEX TO FT4 TSH W/REFLEX TO FT4 Lab Routine Encounter for wellness examination Obesity (BMI 30.0-34.9) Expected: 07/04/2024 (Approximate), Expires: 07/04/2025 [facility] Comment on above: Expected: 07/04/2024 (Approximate), Expires: 07/04/2025 Start: 02-07-2024 End: 02-07-2024 Patient encounter procedure 02/07/2024 2:30 PM EDT Office Visit [facility] [address] [place] [id number] Sandra Granda, AIDEE [address] [place] [address] [place] [facility] [place] [address] Arrived [facility] Comment on above: Arrived Start: 12-25-2023 Influenza vaccination Influenza Vacc ine (#1) [facility] Start: 12-13-2023 End: 12-13-2023 Patient encounter procedure 12/13/2023 5:30 PM EDT Office Visit [facility] [address] [place] [phone] Sandra Granda, AIDEE [address] [facility], [place] [id number] Arrived [facility] Comment on above: Arrived THIN PREP TIS PAP AN D HR HPV DNA THIN PREP TIS PAP AND HR HPV DNA Pathology and Cytology Routine Well woman exam with routine gynecological exam Ordered: 12/06/2024 [facility] Work Phone: Comment on above: Ordered: 12/06/2024 Immunizations Immunization Date Immunization Notes Care Provider Sharmila jiménez 07-24-1997 measles, mumps and rubella virus vaccine Richar STEELE [facility] Payers Date Payer Category Payer Medicaid [id number] 2018 Medicaid (Managed Care) [facility] MEDICA[facility] [id number] 1984 Unknown [id number]. 593 1984 Unknown [id number] [id number]. 593 1984 Unknown [id number] [id number]. 593 1984 Unknown [id number] 2.16.840.1.433762.3.579.2. 593 1984 Unknown [id number] 2.16.840.1.229789.3.579.2. 593 1984 Unknown [id number] 2.16.840.1.178911.3.579.2. 1259 1984 Unknown [id number] 2.16.840.1.619306.3.579.2. 1259 1984 Unknown [id number] 2.16.840.1.628729.3.579.2. 1259 1984 Unknown [id number] 2.16.840.1.280817.3.579.2. 1259 1984 Unknown [id number] 2.16.840.1.982367.3.579.2. 1259 1984 Unknown [id number] 2.16.840.1.214056.3.579.2. 1259 1984 Unknown [id number] 2.16.840.1.911398.3.579.2. 727 1984 Unknown [id number] [id number]. 727 1959 Unknown [id number] Social History Date Type Detail Facility Start: 02-07-2024 End: 12-03-2024 Sex Assigned At [email or web address] Other Start: 06-14-2023 End: 12-13-2023 Tobacco smoking status NHIS Ex-smoker [facility] End: 04-25-2017 History of tobacco use Current smoker [facility] End: 04-25-2017 History of tobacco use Cigarette Smoker [facility] Start: 06-14-2023 End: 12-13-2023 Tobacco use and exposure Smokeless tobacco non-user [facility] Start: 02-07-2024 End: 12-06-2024 Alcoholic beverage intake Ex-drinker (finding) [facility] Start: 02-07-2024 End: 12-03-2024 History of Social function [facility] Start: 09-13-2023 End: 02-07-2024 Alcohol Comment caffeine intake: [facility] Start: 1985 Sex assigned at Not on file [facility] Start: 12-13-2023 Alcohol Comment caffeine intake:1 -2 energy drinks weekly. [facility] Start: 07-04-2024 Alcohol Comment caffeine intake: occassionally [facility] Start: 12-31-2024 End: 01-22-2025 Tobacco smoking status Never smoked tobacco (finding) [facility] Tobacco smoking status Never [facility] Sexual Orientation [facility] Start: 03-02-2022 Sex Female (finding) [facility] Functional Status Date Assessment Result Facility 12-03-2024 Patient Health [facility] ionnaire 2 item (PHQ-2) [Reported] [facility] Clinical Notes 01-20-2021 to 01-22-2025 Telephone Encounter - ARLENE ESQUIVEL - 12/26/2024 8:30 AM EDTTelephone Encounter - ARLENE ESQUIVEL - 12/26/2024 8:30 AM EDTSjovani Baldwin LPN - 12/06/2024 8:30 AM EDT Note Date & Type Note Facility 01-22-2025 Hospital Discharg e instructions Patient Education 01/22/2025 10:24:20 Overactive Bladder, Adult Overactive Bladder, Adult Overactive bladder is a condition in which a person has a sudden and frequent need to urinate. A person might also leak urine if he or she cannot get to the bathroom fast enough (urinary incontinence). Sometimes, symptoms can interfere with work or social activities. What are the causes? Overactive bladder is associated with poor nerve signals between your bladder and your brain. Your bladder may get the signal to empty before it is full. You may also have very sensitive muscles that make your bladder squeeze too soon. This condition may also be caused by other factors, such as: Medical conditions: ?Urinary tract infection. ?Infection of nearby tissues. ?Prostate enlargement. ?Bladder stones, inflammation, or tumors. ?Diabetes. ?Muscle or nerve weakness, especially from these conditions: ?A spinal cord injury. ?Stroke. ?Multiple sclerosis. ?Parkinson's disease. Other causes: ?Surgery on the uterus or urethra. ?Drinking too much caffeine or alcohol. ?Certain medicines, especially those that eliminate extra fluid in the body (diuretics). ?Constipation. What increases the risk? You may be at greater risk for overactive bladder if you: Are an older adult. Smoke. Are going through menopause. Have prostate problems. Have a neurological disease, such as stroke, dementia, Parkinson's disease, or multiple sclerosis (MS). Eat or drink alcohol, spicy food, caffeine, and other things that irritate the bladder. Are overweight or obese. What are the signs or symptoms? Symptoms of this condition include a sudden, strong urge to urinate. Other symptoms include: Leaking urine. Urinating 8 or more times a day. Waking up to urinate 2 or more times overnight. How is this diagnosed? This condition may be diagnosed based on: Your symptoms and medical history. A physical exam. Blood or urine tests to check for possible causes, such as infection. You may also need to see a health care provider who specializes in urinary tract problems. This is called a urologist. How is this treated? Treatment for overactive bladder depends on the cause of your condition and whether it is mild or severe. Treatment may include: Bladder training, such as: ?Learning to control the urge to urinate by following a schedule to urinate at regular intervals. ?Doing Kegel exercises to strengthen the pelvic floor muscles that support your bladder. Special devices, such as: ?Biofeedback. This uses sensors to help you become aware of your body's signals. ?Electrical stimulation. This uses electrodes placed inside the body (implanted) or outside the body. These electrodes send gentle pulses of electricity to strengthen the nerves or muscles that control the bladder. ?Women may use a plastic device, called a pessary, that fits into the vagina and supports the bladder. Medicines, such as: ?Antibiotics to treat bladder infection. ?Antispasmodics to stop the bladder from releasing urine at the wrong time. ?Tricyclic antidepressants to relax bladder muscles. ?Injections of botulinum toxin type A directly into the bladder tissue to relax bladder muscles. Surgery, such as: ?A device may be implanted to help manage the nerve signals that control urination. ?An electrode may be implanted to stimulate electrical signals in the bladder. ?A procedure may be done to change the shape of the bladder. This is done only in very severe cases. Follow these instructions at home: Eating and drinking Make diet or lifestyle changes recommended by your health care provider. These may include: ?Drinking fluids throughout the day and not only with meals. ?Cutting down on caffeine or alcohol. ?Eating a healthy and balanced diet to prevent constipation. This may include: ?Choosing foods that are high in fiber, such as beans, whole grains, and fresh fruits and vegetables. ?Limiting foods that are high in fat and processed sugars, such as fried and sweet foods. Lifestyle Lose weight if needed. Do not use any products that contain nicotine or tobacco. These include cigarettes, chewing tobacco, and vaping devices, such as e-cigarettes. If you need help quitting, ask your health care provider. General instructions Take eggl-gdi-oqsmirc and prescription medicines only as told by your health care provider. If you were prescribed an antibiotic medicine, take it as told by your health care provider. Do not stop taking the antibiotic even if you start to feel better. Use any implants or pessary as told by your health care provider. If needed, wear pads to absorb urine leakage. Keep a log to track how much and when you drink, and when you need to urinate. This will help your health care provider monitor your condition. Keep all follow-up visits. This is important. Contact a health care provider if: You have a fever or chills. Your symptoms do not get better with treatment. Your pain and discomfort get worse. You have more frequent urges to urinate. Get help right away if: You are not able to control your bladder. Summary Overactive bladder refers to a condition in which a person has a sudden and frequent need to urinate. Several conditions may lead to an overactive bladder. Treatment for overactive bladder depends on the cause and severity of your condition. Making lifestyle changes, doing Kegel exercises, keeping a log, and taking medicines can help with this condition. This information is not intended to replace advice given to you by your health care provider. Make sure you discuss any questions you have with your health care provider. Document Revised: 12/29/2020 Document Reviewed: 12/29/2020 [employer] Patient Education 2023 [employer]. Follow Up Care 01/22/2025 07:43:26 With:RICHARD MORA, Richar Kent, URL Address: [address] [place], [place] [id number]- When:Within 6 Month(s) [facility] 01-22-2025 Note Patient Education Obstetrics and Gynecology Overactive Bladder, Adult Overactive bladder is a condition in which a person has a sudden and frequent need to urinate. A person might also leak urine if he or she cannot get to the bathroom fast enough (urinary incontinence). Sometimes, symptoms can interfere with work or social activities. What are the causes? Overactive bladder is associated with poor nerve signals between your bladder and your brain. Your bladder may get the signal to empty before it is full. You may also have very sensitive muscles that make your bladder squeeze too soon. This condition may also be caused by other factors, such as: ??? Medical conditions: ? Urinary tract infection. ? Infection of nearby tissues. ? Prostate enlargement. ? Bladder stones, inflammation, or tumors. ? Diabetes. ? Muscle or nerve weakness, especially from these conditions: ? A spinal cord injury. ? Stroke. ? Multiple sclerosis. ? Parkinson's disease. ??? Other causes: ? Surgery on the uterus or urethra. ? Drinking too much caffeine or alcohol. ? Certain medicines, especially those that eliminate extra fluid in the body (diuretics). ? Constipation. What increases the risk? You may be at greater risk for overactive bladder if you: ??? Are an older adult. ??? Smoke. ??? Are going through menopause. ??? Have prostate problems. ??? Have a neurological disease, such as stroke, dementia, Parkinson's disease, or multiple sclerosis (MS). ??? Eat or drink alcohol, spicy food, caffeine, and other things that irritate the bladder. ??? Are overweight or obese. What are the signs or symptoms? Symptoms of this condition include a sudden, strong urge to urinate. Other symptoms include: ??? Leaking urine. ??? Urinating 8 or more times a day. ??? Waking up to urinate 2 or more times overnight. How is this diagnosed? This condition may be diagnosed based on: ??? Your symptoms and medical history. ??? A physical exam. ??? Blood or urine tests to check for possible causes, such as infection. You may also need to see a health care provider who specializes in urinary tract problems. This is called a urologist. How is this treated? Treatment for overactive bladder depends on the cause of your condition and whether it is mild or severe. Treatment may include: ??? Bladder training, such as: ? Learning to control the urge to urinate by following a schedule to urinate at regular intervals. ? Doing Kegel exercises to strengthen the pelvic floor muscles that support your bladder. ??? Special devices, such as: ? Biofeedback. This uses sensors to help you become aware of your body's signals. ? Electrical stimulation. This uses electrodes placed inside the body (implanted) or outside the body. These electrodes send gentle pulses of electricity to strengthen the nerves or muscles that control the bladder. ? Women may use a plastic device, called a pessary, that fits into the vagina and supports the bladder. ??? Medicines, such as: ? Antibiotics to treat bladder infection. ? Antispasmodics to stop the bladder from releasing urine at the wrong time. ? Tricyclic antidepressants to relax bladder muscles. ? Injections of botulinum toxin type A directly into the bladder tissue to relax bladder muscles. ??? Surgery, such as: ? A device may be implanted to help manage the nerve signals that control urination. ? An electrode may be implanted to stimulate electrical signals in the bladder. ? A procedure may be done to change the shape of the bladder. This is done only in very severe cases. Follow these instructions at home: Eating and drinking ??? Make diet or lifestyle changes recommended by your health care provider. These may include: ? Drinking fluids throughout the day and not only with meals. ? Cutting down on caffeine or alcohol. ? Eating a healthy and balanced diet to prevent constipation. This may include: ? Choosing foods that are high in fiber, such as beans, whole grains, and fresh fruits and vegetables. ? Limiting foods that are high in fat and processed sugars, such as fried and sweet foods. Lifestyle ??? Lose weight if needed. ??? Do not use any products that contain nicotine or tobacco. These include cigarettes, chewing tobacco, and vaping devices, such as e-cigarettes. If you need help quitting, ask your health care provider. General instructions ??? Take ebku-seb-gorrhqh and prescription medicines only as told by your health care provider. ??? If you were prescribed an antibiotic medicine, take it as told by your health care provider. Do not stop taking the antibiotic even if you start to feel better. ??? Use any implants or pessary as told by your health care provider. ??? If needed, wear pads to absorb urine leakage. ??? Keep a log to track how much and when you drink, and whe (more content not included)... [facility] 12-31-2024 Hospital Discharg e instructions Patient Education 12/31/2024 09:40:56 Overactive Bladder, Adult Overactive Bladder, Adult Overactive bladder is a condition in which a person has a sudden and frequent need to urinate. A person might also leak urine if he or she cannot get to the bathroom fast enough (urinary incontinence). Sometimes, symptoms can interfere with work or social activities. What are the causes? Overactive bladder is associated with poor nerve signals between your bladder and your brain. Your bladder may get the signal to empty before it is full. You may also have very sensitive muscles that make your bladder squeeze too soon. This condition may also be caused by other factors, such as: Medical conditions: ?Urinary tract infection. ?Infection of nearby tissues. ?Prostate enlargement. ?Bladder stones, inflammation, or tumors. ?Diabetes. ?Muscle or nerve weakness, especially from these conditions: ?A spinal cord injury. ?Stroke. ?Multiple sclerosis. ?Parkinson's disease. Other causes: ?Surgery on the uterus or urethra. ?Drinking too much caffeine or alcohol. ?Certain medicines, especially those that eliminate extra fluid in the body (diuretics). ?Constipation. What increases the risk? You may be at greater risk for overactive bladder if you: Are an older adult. Smoke. Are going through menopause. Have prostate problems. Have a neurological disease, such as stroke, dementia, Parkinson's disease, or multiple sclerosis (MS). Eat or drink alcohol, spicy food, caffeine, and other things that irritate the bladder. Are overweight or obese. What are the signs or symptoms? Symptoms of this condition include a sudden, strong urge to urinate. Other symptoms include: Leaking urine. Urinating 8 or more times a day. Waking up to urinate 2 or more times overnight. How is this diagnosed? This condition may be diagnosed based on: Your symptoms and medical history. A physical exam. Blood or urine tests to check for possible causes, such as infection. You may also need to see a health care provider who specializes in urinary tract problems. This is called a urologist. How is this treated? Treatment for overactive bladder depends on the cause of your condition and whether it is mild or severe. Treatment may include: Bladder training, such as: ?Learning to control the urge to urinate by following a schedule to urinate at regular intervals. ?Doing Kegel exercises to strengthen the pelvic floor muscles that support your bladder. Special devices, such as: ?Biofeedback. This uses sensors to help you become aware of your body's signals. ?Electrical stimulation. This uses electrodes placed inside the body (implanted) or outside the body. These electrodes send gentle pulses of electricity to strengthen the nerves or muscles that control the bladder. ?Women may use a plastic device, called a pessary, that fits into the vagina and supports the bladder. Medicines, such as: ?Antibiotics to treat bladder infection. ?Antispasmodics to stop the bladder from releasing urine at the wrong time. ?Tricyclic antidepressants to relax bladder muscles. ?Injections of botulinum toxin type A directly into the bladder tissue to relax bladder muscles. Surgery, such as: ?A device may be implanted to help manage the nerve signals that control urination. ?An electrode may be implanted to stimulate electrical signals in the bladder. ?A procedure may be done to change the shape of the bladder. This is done only in very severe cases. Follow these instructions at home: Eating and drinking Make diet or lifestyle changes recommended by your health care provider. These may include: ?Drinking fluids throughout the day and not only with meals. ?Cutting down on caffeine or alcohol. ?Eating a healthy and balanced diet to prevent constipation. This may include: ?Choosing foods that are high in fiber, such as beans, whole grains, and fresh fruits and vegetables. ?Limiting foods that are high in fat and processed sugars, such as fried and sweet foods. Lifestyle Lose weight if needed. Do not use any products that contain nicotine or tobacco. These include cigarettes, chewing tobacco, and vaping devices, such as e-cigarettes. If you need help quitting, ask your health care provider. General instructions Take kazn-nso-gpeagow and prescription medicines only as told by your health care provider. If you were prescribed an antibiotic medicine, take it as told by your health care provider. Do not stop taking the antibiotic even if you start to feel better. Use any implants or pessary as told by your health care provider. If needed, wear pads to absorb urine leakage. Keep a log to track how much and when you drink, and when you need to urinate. This will help your health care provider monitor your condition. Keep all follow-up visits. This is important. Contact a health care provider if: You have a fever or chills. Your symptoms do not get better with treatment. Your pain and discomfort get worse. You have more frequent urges to urinate. Get help right away if: You are not able to control your bladder. Summary Overactive bladder refers to a condition in which a person has a sudden and frequent need to urinate. Several conditions may lead to an overactive bladder. Treatment for overactive bladder depends on the cause and severity of your condition. Making lifestyle changes, doing Kegel exercises, keeping a log, and taking medicines can help with this condition. This information is not intended to replace advice given to you by your health care provider. Make sure you discuss any questions you have with your health care provider. Document Revised: 12/29/2020 Document Reviewed: 12/29/2020 [employer] Patient Education 2023 [employer] 12/31/2024 09:40:53 Cystoscopy Cystoscopy Cystoscopy is a procedure that is used to help diagnose and sometimes treat conditions that affect the lower urinary tract. The lower urinary tract includes the bladder and the urethra. The urethra is the tube that drains urine from the bladder. Cystoscopy is done using a thin, tube-shaped instrument with a light and camera at the end (cystoscope). The cystoscope may be hard or flexible, depending on the goal of the procedure. The cystoscope is inserted through the urethra, into the bladder. Cystoscopy may be recommended if you have: Urinary tract infections that keep coming back. Blood in the urine (hematuria). An inability to control when you urinate (urinary incontinence) or an overactive bladder. Unusual cells found in a urine sample. A blockage in the urethra, such as a urinary stone. Painful urination. An abnormality in the bladder found during an intravenous pyelogram (IVP) or CT scan. Cystoscopy may also be done to remove a sample of tissue to be examined under a microscope (biopsy). Tell a health care provider about: Any allergies you have. All medicines you are taking, including vitamins, herbs, eye drops, creams, and yeze-amq-daitkic medicines. Any problems you or family members have had with anesthetic medicines. Any blood disorders you have. Any surgeries you have had. Any medical conditions you have. Whether you are or may be . What are the risks? Generally, this is a safe procedure. However, problems may occur, including: Infection. Bleeding. Allergic reactions to medicines. Damage to other structures or organs. What happens before the procedure? Medicines Ask your health care provider about: Changing or stopping your regular medicines. This is especially important if you are taking diabetes medicines or blood thinners. Taking medicines such as aspirin and ibuprofen. These medicines can thin your blood. Do not take these medicines unless your health care provider tells you to take them. Taking iofd-wvz-vepbxzp medicines, vitamins, herbs, and supplements. Tests You may have an exam or testing, such as: X-rays of the bladder, urethra, or kidneys. CT scan of the abdomen or pelvis. Urine tests to check for signs of infection. General instructions Follow instructions from your health care provider about eating or drinking restrictions. Ask your health care provider what steps will be taken to help prevent infection. These steps may include: ?Washing skin with a germ-killing soap. ?Taking antibiotic medicine. Plan to have a responsible adult take you home from the hospital or clinic. What happens during the procedure? You will be given one or more of the following: ?A medicine to help you relax (sedative). ?A medicine to numb the area (local anesthetic). The area around the opening of your urethra will be cleaned. The cystoscope will be passed through your urethra into your bladder. Germ-free (sterile) fluid will flow through the cystoscope to fill your bladder. The fluid will stretch your bladder so that your health care provider can clearly examine your bladder anne. Your doctor will look at the urethra and bladder. Your doctor may take a biopsy or remove stones. The cystoscope will be removed, and your bladder will be emptied. The procedure may vary among health care providers and hospitals. What can I expect after the procedure? After the procedure, it is common to have: Some soreness or pain in your abdomen and urethra. Urinary symptoms. These include: ?Mild pain or burning when you urinate. Pain should stop within a few minutes after you urinate. This may last for up to 1 week. ?A small amount of blood in your urine for several days. ?Feeling like you need to urinate but producing only a small amount of urine. Follow these instructions at home: Medicines Take irbz-usa-mekfasd and prescription medicines only as told by your health care provider. If you were prescribed an antibiotic medicine, take it as told by your health care provider. Do not stop taking the antibiotic even if you start to feel better. General instructions Return to your normal activities as told by your health care provider. Ask your health care provider what activities are safe for you. If you were given a sedative during the procedure, it can affect you for several hours. Do not drive or operate machinery until your health care provider says that it is safe. Watch for any blood in your urine. If the amount of blood in your urine increases, call your health care provider. Follow instructions from your health care provider about eating or drinking restrictions. If a tissue sample was removed for testing (biopsy) during your procedure, it is up to you to get your test results. Ask your health care provider, or the department that is doing the test, when your results will be ready. Drink enough fluid to keep your urine pale yellow. Keep all follow-up visits. This is important. Contact a health care provider if: You have pain that gets worse or does not get better with medicine, especially pain when you urinate. You have trouble urinating. You have more blood in your urine. Get help right away if: You have blood clots in your urine. You have abdominal pain. You have a fever or chills. You are unable to urinate. Summary Cystoscopy is a procedure that is used to help diagnose and sometimes treat conditions that affect the lower urinary tract. Cystoscopy is done using a thin, tube-shaped instrument with a light and camera at the end. After the procedure, it is common to have some soreness or pain in your abdomen and urethra. Watch for any blood in your urine. If the amount of blood in your urine increases, call your health care provider. If you were prescribed an antibiotic medicine, take it as told by your health care provider. Do not stop taking the antibiotic even if you start to feel better. This information is not intended to replace advice given to you by your health care provider. Make sure you discuss any questions you have with your health care provider. Document Revised: 12/23/2021 Document Reviewed: 11/21/2020 [employer] Patient Education 2023 [employer]. Follow Up Care 12/07/2024 13:35:47 With:RICHARD MORA, Richar Kent, URL Address: [address] [place] [phone] When: Unknown Comments:sched cysto w/ pelvic exam [facility] 12-31-2024 Note Patient Education Obstetrics and Gynecology Overactive Bladder, Adult Overactive bladder is a condition in which a person has a sudden and frequent need to urinate. A person might also leak urine if he or she cannot get to the bathroom fast enough (urinary incontinence). Sometimes, symptoms can interfere with work or social activities. What are the causes? Overactive bladder is associated with poor nerve signals between your bladder and your brain. Your bladder may get the signal to empty before it is full. You may also have very sensitive muscles that make your bladder squeeze too soon. This condition may also be caused by other factors, such as: ??? Medical conditions: ? Urinary tract infection. ? Infection of nearby tissues. ? Prostate enlargement. ? Bladder stones, inflammation, or tumors. ? Diabetes. ? Muscle or nerve weakness, especially from these conditions: ? A spinal cord injury. ? Stroke. ? Multiple sclerosis. ? Parkinson's disease. ??? Other causes: ? Surgery on the uterus or urethra. ? Drinking too much caffeine or alcohol. ? Certain medicines, especially those that eliminate extra fluid in the body (diuretics). ? Constipation. What increases the risk? You may be at greater risk for overactive bladder if you: ??? Are an older adult. ??? Smoke. ??? Are going through menopause. ??? Have prostate problems. ??? Have a neurological disease, such as stroke, dementia, Parkinson's disease, or multiple sclerosis (MS). ??? Eat or drink alcohol, spicy food, caffeine, and other things that irritate the bladder. ??? Are overweight or obese. What are the signs or symptoms? Symptoms of this condition include a sudden, strong urge to urinate. Other symptoms include: ??? Leaking urine. ??? Urinating 8 or more times a day. ??? Waking up to urinate 2 or more times overnight. How is this diagnosed? This condition may be diagnosed based on: ??? Your symptoms and medical history. ??? A physical exam. ??? Blood or urine tests to check for possible causes, such as infection. You may also need to see a health care provider who specializes in urinary tract problems. This is called a urologist. How is this treated? Treatment for overactive bladder depends on the cause of your condition and whether it is mild or severe. Treatment may include: ??? Bladder training, such as: ? Learning to control the urge to urinate by following a schedule to urinate at regular intervals. ? Doing Kegel exercises to strengthen the pelvic floor muscles that support your bladder. ??? Special devices, such as: ? Biofeedback. This uses sensors to help you become aware of your body's signals. ? Electrical stimulation. This uses electrodes placed inside the body (implanted) or outside the body. These electrodes send gentle pulses of electricity to strengthen the nerves or muscles that control the bladder. ? Women may use a plastic device, called a pessary, that fits into the vagina and supports the bladder. ??? Medicines, such as: ? Antibiotics to treat bladder infection. ? Antispasmodics to stop the bladder from releasing urine at the wrong time. ? Tricyclic antidepressants to relax bladder muscles. ? Injections of botulinum toxin type A directly into the bladder tissue to relax bladder muscles. ??? Surgery, such as: ? A device may be implanted to help manage the nerve signals that control urination. ? An electrode may be implanted to stimulate electrical signals in the bladder. ? A procedure may be done to change the shape of the bladder. This is done only in very severe cases. Follow these instructions at home: Eating and drinking ??? Make diet or lifestyle changes recommended by your health care provider. These may include: ? Drinking fluids throughout the day and not only with meals. ? Cutting down on caffeine or alcohol. ? Eating a healthy and balanced diet to prevent constipation. This may include: ? Choosing foods that are high in fiber, such as beans, whole grains, and fresh fruits and vegetables. ? Limiting foods that are high in fat and processed sugars, such as fried and sweet foods. Lifestyle ??? Lose weight if needed. ??? Do not use any products that contain nicotine or tobacco. These include cigarettes, chewing tobacco, and vaping devices, such as e-cigarettes. If you need help quitting, ask your health care provider. General instructions ??? Take ulsh-rrz-mfrmljf and prescription medicines only as told by your health care provider. ??? If you were prescribed an antibiotic medicine, take it as told by your health care provider. Do not stop taking the antibiotic even if you start to feel better. ??? Use any implants or pessary as told by your health care provider. ??? If needed, wear pads to absorb urine leakage. ??? Keep a log to track how much and when you drink, and whe (more content not included)... [facility] 12-26-2024 Telephone encounter Note Refill request [facility] 12-26-2024 Miscellaneous Notes Refill request documented in this encounter [facility] 12-06-2024 History of Presen t illness Narrative Reason for Appointment: Patient ID: Yolanda Hackett is a 39 y.o. female who [...] Current packs/day: 0.00 Types: Cigarettes Quit date: 2017 Years since quittin.6 Smokeless tobacco: Never Vaping [...] nursing note reviewed. Exam conducted with a global commodity manager present. Vitals: Estimated body mass index is [...] needed otherwise. Patient to be referred to [facility] for urinary leakage. Documented by Sangeetha Baldwin LPN on behalf of: Yossi Lawton DO documented in this encounter [facility] 12-03-2024 History of Presen t illness Narrative Associated Problem(s): ADHD (attention deficit hyperactivity disorder), inattentive type -stable with current medication regimen. PDMP reviewed. Follow up in 3 months. Images from the original note were not included. Subjective Patient ID: Yolanda Hackett is a 39 y.o. female who [...] she no longer has a uterus. 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 She says she switches it up when it feels her body gets too used to it. [facility] 09-28-2024 Miscellaneous Notes She wants to know if you can switch it to the extended release? She says she switches it up when it feels her body gets too used to it. documented in this encounter [facility] 08-31-2024 Telephone encounter Note Pharmacy and dosage correct [facility] 08-31-2024 Miscellaneous Notes Pharmacy and dosage correct Pt saw you in June and said discussed weight issues, but didn't want injections due to pricing. But is now interested in trying weight loss injection whichever would be cheapest. documented in this encounter [facility] 08-23-2024 Telephone encounter Note Pt saw you in June and said discussed weight issues, but didn't want injections due to pricing. But is now interested in trying weight loss injection whichever would be cheapest. [facility] 07-05-2024 Telephone encounter Note Also wants to discuss lab results. [facility] 07-05-2024 Miscellaneous Notes Also wants to discuss lab results. documented in this encounter [facility] 07-04-2024 History of Presen t illness Narrative Images from the original note were not included. Yolanda Hackett is a 38 y.o. female presents [...] - Lipid panel; Future -Wellness performed at today. Height, weight, BMI, problem list, and [...] a simple paper/calendar system or downloading the My [employer]itness Plan application to track calorie consumption, [...] help manage symptoms. documented in this encounter [facility] 02-07-2024 History of Presen t illness Narrative Images from the original note were not included. Yolanda Hackett is a 38 y.o. female presents [...] for further evaluation. documented in this encounter [facility] 01-13-2024 Telephone encounter Note Pt says she doesn't need it until 01/16 [facility] 01-13-2024 Miscellaneous Notes Pt says she doesn't need it until 01/16 documented in this encounter [facility] 12-13-2023 History of Presen t illness Narrative Yolanda Hackett is a 38 y.o. female presents [...] habits, keep active documented in this encounter [facility] 01-20-2021 Evaluation note Encounter Date Diagnosis Assessment [...] treatment, may consider MRI for further evaluation. [email or web address] Other Evaluation + Plan note No data available for this section [facility] evaluation note* Diagnosis ADHD (attention deficit hyperactivity disorder), [...] stress (male)(female) [facility] Diagnosis ADHD (attention deficit hyperactivity disorder), inattentive type- Primary Obesity (BMI 30.0-34.9) Encounter for wellness examination Screening, lipid ADHD (attention deficit hyperactivity disorder), inattentive type- Primary ADHD (attention deficit hyperactivity disorder), inattentive type [facility] Diagnosis ADHD (attention deficit hyperactivity disorder), inattentive type- Primary Obesity (BMI 30.0-34.9) Encounter for wellness examination Screening, lipid ADHD (attention deficit hyperactivity disorder), inattentive type- Primary ADHD (attention deficit hyperactivity disorder), inattentive type [facility] N[facility] - Reported* Type Description Date Medical History uturus cancer Surgical History hysterectomy Surgical History tonsillectomy Hospitalization History childbirth Hospitalization History see surgical hx [email or web address] Other Progress note No data available for this section [facility] Purpose Family History No Family History Records FoundNo Family History Records FoundNo Family History Records Found No data available for this section No data available for this section No Family History Records Found Advance Directives No Advanced Directives Records FoundNo Advanced Directives Records FoundNo Advanced Directives Records FoundNo Advanced Directives Records Found Reason for Referral Specialty Diagnoses / Procedures Referred By Contac t Referred To Contact Diagnoses ADHD (attention deficit hyperactivity disorder), inattentive type ([facility]) Sandra Granda NP [address] [place] [address] Referral ID Status Reason Start Date Expiration Date Visits Re quested Visits Authorized [id number] Closed 1 1 Additional Source Comments INFORMATION SOURCE (unrecogn ized section and content) DATE CREATED AUTHOR 10/13/2017 [facility] DATE CREATED AUTHOR AUTHOR'S ORGANIZ ATION 09/06/2022 [facility] DATE CREATED AUTHOR AUTHOR'S ORGANIZ ATION 12/07/2024 [facility] EPIC DATE CREATED AUTHOR AUTHOR'S ORGANIZ ATION 01/27/2025 [facility] REASON FOR VISIT (unrecogniz ed section and content) Reason Comments URI Sx started . Reason Onset Date Comments Med Refill 02/10/2024 Reason Comments ADHD Reason Comments Annual Exam Reason Onset Date Comments Med Refill 07/04/2024 Reason Comments Med Refill Reason Comments [facility] Visit Care Teams (unrecognized sec tion and content) Lead Software Development Engineer Relationship Specialty Start Date End Date Angie Bobby MD [address] [place] [address] PCP - General Family Medicine 05/31/23 La Nena Quintanilla DO [address] [place] [address] PCP - [facility] 07/25/23 Sandra Granda NP [address] [place] [address] Nurse Practitioner Family Medicine 05/31/23 Lead Software Development Engineer Relationship Specialty Start Date End Date Angie Bobby MD [address] [place] [address] PCP - General Family Medicine 05/31/23 La Nena Quintanilla DO [address] [place] [address] PCP - [facility] 07/25/23 Sandra Granda NP [address] [place] [address] Nurse Practitioner Family Medicine 05/31/23 Lead Software Development Engineer Relationship Specialty Start Date End Date Angie Bobby MD [address] [place] [address] PCP - General Family Medicine 05/31/23 La Nena Quintanilla DO [address] [place] [address] PCP - [facility] 07/25/23 Sandra Granda NP [address] [place] [address] Nurse Practitioner Family Medicine 05/31/23 Lead Software Development Engineer Relationship Specialty Start Date End Date Angie Bobby MD [address] [place] [address] PCP - General Family Medicine 05/31/23 Sandra Granda NP [address] [place] [address] PCP - [facility] 01/24/24 Sandra Granda NP [address] [place] [address] Nurse Practitioner Family Medicine 05/31/23 Lead Software Development Engineer Relationship Specialty Start Date End Date Angie Bobby MD [address] [place] [address] PCP - General Family Medicine 05/31/23 La Nena Quintanilla DO [address] [place] [address] PCP - [facility] 07/25/23 Sandra Granda NP [address] [place] [address] Nurse Practitioner Family Medicine 05/31/23 Lead Software Development Engineer Relationship Specialty Start Date End Date Angie Bobby MD [address] [place] [address] PCP - General Family Medicine 05/31/23 La Nena Quintanilla DO [address] [place] [address] PCP - [facility] 07/25/23 Sandra Granda NP [address] [place] [address] Nurse Practitioner Family Medicine 05/31/23 Lead Software Development Engineer Relationship Specialty Start Date End Date Angie Bobby MD [address] [place] [address] PCP - General Family Medicine 05/31/23 La Nena Quintanilla DO [address] [place] [address] PCP - [facility] 07/25/23 Sandra Granda NP [address] [place] [address] Nurse Practitioner Family Medicine 05/31/23 Lead Software Development Engineer Relationship Specialty Start Date End Date Angie Bobby MD [address] [place] [address] PCP - General Family Medicine 05/31/23 Sandra Granda NP [address] [place] [address] PCP - [facility] 01/24/24 Sandra Granda NP [address] [place] [address] Nurse Practitioner Family Medicine 05/31/23 Lead Software Development Engineer Relationship Specialty Start Date End Date Angie Bobby MD [address] [place] [address] PCP - General Family Medicine 05/31/23 Sandra Granda NP [address] [place] [address] PCP - [facility] 01/24/24 Sandra Granda NP [address] [place] [address] Nurse Practitioner Family Medicine 05/31/23 Lead Software Development Engineer Relationship Specialty Start Date End Date Angie Bobby MD [address] [place] [address] PCP - General Family Medicine 05/31/23 Sandra Granda, AIDEE [address] [place] [address] PCP - [facility] 01/24/24 Sandra Granda, AIDEE [address] [place] [address] Nurse Practitioner Family Medicine 05/31/23 Lead Software Development Engineer Relationship Specialty Start Date End Date Angie Bobby MD [address] [place] [address] PCP - General Family Medicine 05/31/23 Sandra Granda NP [address] [place] [address] PCP - [facility] 01/24/24 Sandra Granda, AIDEE [address] [place] [address] Nurse Practitioner Family Medicine 05/31/23 Lead Software Development Engineer Relationship Specialty Start Date End Date Angie Bobby MD [address] [place] [address] PCP - General Family Medicine 05/31/23 Sandra Granda, AIDEE [address] [place] [address] PCP - [facility] 01/24/24 Sandra Granda NP [address] [place] [address] Nurse Practitioner Family Medicine 05/31/23 Lead Software Development Engineer Relationship Specialty Start Date End Date Angie Bobby MD [address] [place] [address] PCP - General Family Medicine 05/31/23 Sandra Granda NP [address] [place] [address] PCP - [facility] 01/24/24 Sandra Granda NP [address] [place] [address] Nurse Practitioner Family Medicine 05/31/23 Lead Software Development Engineer Relationship Specialty Start Date End Date Angie Bobby MD [address] [place] [address] PCP - General Family Medicine 05/31/23 Sandra Granda NP [address] [place] [address] PCP - [facility] 01/24/24 Sandra Granda NP [address] [place] [address] Nurse Practitioner Family Medicine 05/31/23 Lead Software Development Engineer Relationship Specialty Start Date End Date Angie Bobby MD [address] [place] [address] PCP - General Family Medicine 05/31/23 Sandra Granda NP [address] [place] [address] PCP - [facility] 01/24/24 Sandra Granda NP [address] [place] [address] Nurse Practitioner Family Medicine 05/31/23 Lead Software Development Engineer Relationship Specialty Start Date End Date Angie Bobby MD [address] [place] [address] PCP - General Family Medicine 05/31/23 Sandra Granda NP [address] [place] [address] PCP - [facility] 01/24/24 Sandra Granda NP [address] [place] [address] Nurse Practitioner Family Medicine 05/31/23 Lead Software Development Engineer Relationship Specialty Start Date End Date Angie Bobby MD [address] [place] [address] PCP - General Family Medicine 05/31/23 Sandra Granda NP [address] [place] [address] PCP - [facility] 01/24/24 Sandra Granda NP [address] [place] [address] Nurse Practitioner Family Medicine 05/31/23 Lead Software Development Engineer Relationship Specialty Start Date End Date Angie Bobby MD [address] [place] [address] PCP - General Family Medicine 05/31/23 Sandra Granda NP [address] [place] [address] PCP - [facility] 01/24/24 Sandra Granda NP [address] [place] [address] Nurse Practitioner Family Medicine 05/31/23 Lead Software Development Engineer Relationship Specialty Start Date End Date Angie Bobby MD [address] [place] [address] PCP - General Family Medicine 05/31/23 Sandra Granda NP [address] [place] [address] PCP - [facility] 01/24/24 Sandra Granda NP [address] [place] [address] Nurse Practitioner Family Medicine 05/31/23 Lead Software Development Engineer Relationship Specialty Start Date End Date Angie Bobby MD [address] [place] [address] PCP - General Family Medicine 05/31/23 Sandra Granda NP [address] [place] [address] PCP - [facility] 01/24/24 Sandra Granda NP [address] [place] [address] Nurse Practitioner Family Medicine 05/31/23 FOR RECORDS PERTAINING TO PATIENTS WHO [...] BE BASED ON THE PRIMARY CLINICAL RECORDS. [facility] provides no warranty or guarantee of the accuracy or completeness of information in this document.
[2025-02-09 19:25] LABS: Alanine Aminotransferase 33 U/L (14-59); Albumin Globulin Ratio 1.4; Albumin Level 4.6 g/dL (3.4-5.0); Alkaline Phosphatase 77 U/L (46-116); Anion Gap 24.4; Aspartate Amino Transferase 17 U/L (15-37); Blood Urea Nitrogen 12.0 mg/dL (7.0-18.0); Calcium 9.4 mg/dL (8.5-10.1); Carbon Dioxide 20.3 mmol/L (21.0-32.0); Chloride 100 mmol/L (98-107); Estimated GFR (African America >60 (>=60 mL/min/1.73m^2); Estimated GFR (Non-African Ame >60 (>=60 mL/min/1.73m^2); Globulin 3.3 g/dL; Glucose 135 mg/dL (74-106); Potassium 3.7 mmol/L (3.5-5.1); Sodium 141 mmol/L (136-145); Total Protein 7.9 g/dL (6.4-8.2)
[2025-02-09] MEDS: ONDANSETRON 4 MG RAPDIS TABLET SL (19:26)
[2025-02-09] MEDS: 0.9 % SODIUM CHLORIDE 1,000 ML 1000 ML IV (19:54)
--- NOTE | 2025-02-09 20:50 | ED.GENADUL1 ---
HPI HPI - General Adult General Chief complaint: Nausea/Vomiting/Diarrhea Stated complaint: SHORTNESS OF BREATH Time Seen by Provider: 02/09/25 19:00 Source: patient Mode of arrival: Wheelchair Limitations: no limitations History of Present Illness HPI narrative: 39-year-old female presented to the emergency room with chief complaint of hyperventilating with nausea vomiting. Patient states she has had vomiting at home for the last 12 hours due to eating sushi. She feels she got sick from sushi. Denies any fevers chills or abdominal pain. She is hyperventilating upon arrival to the emergency room. She is afebrile. Related Data Home Medications ?Medication ?Instructions ?Recorded ?Confirmed dextroamphetamine-amphetamine ER 30 mg PO DAILY 11/23/23 02/09/25 30 mg 24hr capsule,extend release mirabegron 50 mg tablet,extended 50 mg PO Q24H 02/09/25 02/09/25 release 24 hr (Myrbetriq) Previous Rx's ?Medication ?Instructions ?Recorded ondansetron 4 mg disintegrating 4 mg PO DAILY PRN nausea and 02/09/25 tablet vomiting 3 days #10 tabs Allergies Allergy/AdvReac Type Severity Reaction Status Date / Time No Known Drug Allergies Allergy Verified 02/09/25 18:35 Review of Systems ROS Status of ROS 10 or more systems reviewed and unremarkable except as noted in history and below Exam Constitutional Vital Signs, click to edit/add: Last Vital Signs Temp 97.4 F L 02/09/25 18:35 Pulse 61 02/09/25 18:35 Resp 18 02/09/25 18:35 BP 148/77 H 02/09/25 18:35 Pulse Ox 100 02/09/25 18:35 O2 Del Method Room Air 02/09/25 18:35 Course Vital Signs Vital signs: Vital Signs Temperature 97.4 F L 02/09/25 18:35 Pulse Rate 61 02/09/25 18:35 Respiratory Rate 18 02/09/25 18:35 Blood Pressure 148/77 H 02/09/25 18:35 Pulse Oximetry 100 02/09/25 18:35 Oxygen Delivery Method Room Air 02/09/25 18:35 Temperature 97.4 F L 02/09/25 18:35 Pulse Rate 61 02/09/25 18:35 Respiratory Rate 18 02/09/25 18:35 Blood Pressure 148/77 H 02/09/25 18:35 Pulse Oximetry 100 02/09/25 18:35 Oxygen Delivery Method Room Air 02/09/25 18:35 Medical Decision Making MDM Narrative Medical decision making narrative: 39-year-old female presented to the emergency room with chief complaint of hyperventilating with nausea vomiting. Patient states she has had vomiting at home for the last 12 hours due to eating sushi. She feels she got sick from sushi. Denies any fevers chills or abdominal pain. She is hyperventilating upon arrival to the emergency room. She is afebrile. Patient presenting here with a chief complaint of nausea vomiting. She was hyperventilating and stating she was tired of vomiting. She states she is believes she was having vomiting due to giving food poisoning from sushi. She does admit to smoking marijuana but states has not used in over 48 hours. Upon arrival to the emergency room patient was unable to get an IV established by nursing staff oral Zofran was given and patient did calm down. IV was then established patient was given IV fluids and Zofran. She also states she had heartburn. Lung sounds were clear throughout and she feels much better after Protonix and fluids. Urinalysis obtained and negative other than ketones. CMP was obtained but CBC was unable to be obtained and patient does not wish to have further blood work drawn at this time. She will be discharged to home. She has no abdominal pain on examination. Patient's reasons to return to emergency room were discussed discharged home prescription of Zofran Differential Diagnosis Differential Diagnosis: Hyperventilation, nausea, vomiting Medical Records Medical records reviewed: Yes I reviewed the patient's medical records Lab Data Lab results reviewed: Yes I reviewed the patient's lab results Labs: Lab Results 02/09/25 02/09/25 Range/Units 19:00 21:05 Sodium 141 (136-145) mmol/L Potassium 3.7 (3.5-5.1) mmol/L Chloride 100 (98-107) mmol/L Carbon Dioxide 20.3 L (21.0-32.0) mmol/L Anion Gap 24.4 BUN 12.0 (7.0-18.0) mg/dL Creatinine 0.80 (0.55-1.02) mg/dL Est GFR ( Amer) >60 (>=60 mL/min/1.73m^2) Est GFR (Non-Af Amer) >60 (>=60 mL/min/1.73m^2) BUN/Creatinine Ratio 15.0 Glucose 135 H (74-106) mg/dL Calcium 9.4 (8.5-10.1) mg/dL Total Bilirubin 1.7 H (0.2-1.0) mg/dL AST 17 (15-37) U/L ALT 33 (14-59) U/L Alkaline Phosphatase 77 (46-116) U/L Total Protein 7.9 (6.4-8.2) g/dL Albumin 4.6 (3.4-5.0) g/dL Globulin 3.3 g/dL Albumin/Globulin Ratio 1.4 Urine Color Yellow (YELLOW) Urine Clarity Clear (CLEAR) Urine pH 7.0 (5.0-9.0) Ur Specific [place] 1.020 (1.005-1.025) Urine Protein Trace (NEG/TRACE) mg/dL Urine Glucose (UA) Negative (NEGATIVE) mg/dL Urine Ketones >=80 A (NEGATIVE) mg/dL Urine Occult Blood Negative (NEGATIVE) Urine Nitrite Negative (NEGATIVE) Urine Bilirubin Negative (NEGATIVE) Urine Urobilinogen 0.2 (0.2-1.0) EU/dL Ur Leukocyte Esterase Negative (NEGATIVE) Urine HCG, Qual Negative (NEGATIVE) Discharge Plan Discharge Chief Complaint: Nausea/Vomiting/Diarrhea Clinical Impression: Nausea and vomiting, Acute hyperventilation Patient Disposition: Home, Self-Care Time of Disposition Decision: 20:49 Condition: Good Prescriptions / Home Meds: New ondansetron 4 mg tablet,disintegrating 4 mg PO DAILY PRN (Reason: nausea and vomiting) 3 Days Qty: 10 0RF No Action dextroamphetamine-amphetamine 30 mg capsule,extended release 24hr 30 mg PO DAILY mirabegron [Myrbetriq] 50 mg tablet extended release 24 hr 50 mg PO Q24H Print Language: Syriac Instructions: Acute Nausea and Vomiting (ED) Referrals: Sandra Gradna STEREO PLOTTER OPERATOR [Primary Care Provider] - 1 week
[2025-02-09 21:23] LABS: Glucose Urine UA NEGATIVE (NEGATIVE)
[2025-02-09 21:25] LABS: HCG Qualitative Urine* NEGATIVE (NEGATIVE)
[2025-02-09 21:28] LABS: Crystals Seen? None Seen #/HPF (None Seen)
[2025-02-09] MEDS: FAMOTIDINE 20 MG TABLET 40 MG PO (21:28)
[2025-02-09 21:29] LABS: Cast Seen? NONE SEEN #/LPF (NONE SEEN); Urine Culture Indicated NO
== END 2025-02-09 21:40 | disposition home or self-care (01) ==
PROVIDERS: Physician Assistant; Emergency Provider Emergency Medicine; PCP Nurse Practitioner Family
DX: R06.4 Hyperventilation (principal); R11.2 Nausea with vomiting, unspecified; R12 Heartburn
CPT/HCPCS: 36415; 80053; 81001; 84703; 96361; 96374; 99284; J2405; Q0162

== ENCOUNTER 2025-02-11 10:18 | Emergency (ER) | payer OTHER, SELFPAY ==
[2025-02-11] VITALS (14 sets, daily range): BP systolic 102–176; BP diastolic 67–113; PULSE 54–78; TEMP 37; O2SAT 95–100; BMI 32.1
--- NOTE | 2025-02-11 10:43 | ED.NAVMDI1 ---
HPI - Nausea/Vomiting/Diarrhea General Chief complaint: Nausea/Vomiting/Diarrhea Stated complaint: DEHYDRATION SOB Time Seen by Provider: 02/11/25 10:41 Source: patient Mode of arrival: walk-in Limitations: no limitations History of Present Illness HPI Narrative: cc - nausea and vomiting 3 days of nausea and vomiting despite taking zofran ODT at home. She was evaluated in this ED over the weekend, had blood testing and received NS IVF and IV Zofran + ODT Zofran. She said that she has been taking the ODT Zofran at home without improvement - unable to keep anything down and complains of dry mouth. She is a regular cannabis user but nothing for the last 5 days . Prior hx of biliary colic but despite seeing a general surgeon about cholecystectomy, she did not proceed with the surgery. Related Data Home Medications ?Medication ?Instructions ?Recorded ?Confirmed dextroamphetamine-amphetamine ER 30 mg PO DAILY 11/23/23 02/11/25 30 mg 24hr capsule,extend release mirabegron 50 mg tablet,extended 50 mg PO Q24H 02/09/25 02/11/25 release 24 hr (Myrbetriq) Previous Rx's ?Medication ?Instructions ?Recorded ondansetron 4 mg disintegrating 4 mg PO DAILY PRN nausea and 02/09/25 tablet vomiting 3 days #10 tabs promethazine 25 mg tablet 25 mg PO Q6H PRN nausea and 02/11/25 vomiting #14 tabs Allergies Allergy/AdvReac Type Severity Reaction Status Date / Time No Known Drug Allergies Allergy Verified 02/09/25 18:35 PFSH PFSH Social History Little interest or pleasure in doing things: not at all Feeling down, depressed, or hopeless: not at all Exam Narrative Exam Narrative: Nurses notes and vital signs reviewed and patient is not hypoxic. afebrile General: Anxious. Uncomfortable Skin: Warm, dry, no pallor noted. No rash. Head: Normocephalic, atraumatic. Neck: Supple, non-tender. No meningismus Eye: Pupils are equal, round and EOMI. No scleral icterus. Ears, Nose, Mouth, and Throat: Oral mucosa is dry Cardiovascular: Regular Rate and Rhythm without murmur, gallop or rub. Respiratory: No accessory muscle use or respiratory distress. Lungs are clear to auscultation, no wheezing, rales or rhonchi Back: No CVA tenderness Musculoskeletal: normal ROM, no calf or popliteal tenderness, no lower extremity edema/swelling GI: Abdomen is soft, non-distended. Normal bowel sounds. No masses appreciated. Diffuse tenderness to palpation without rebound, guarding, or rigidity noted. Neurological: A&O x4. No cranial nerve dysfunction observed. No truncal ataxia. Moves all extremities. Sensation intact. Psychiatric: Cooperative and interactive. Normal mood and affect. Constitutional Vital Signs, click to edit/add: Last Vital Signs Temp 98.6 F 02/11/25 10:27 Pulse 54 L 02/11/25 10:27 Resp 18 02/11/25 10:27 BP 162/101 H 02/11/25 10:27 Pulse Ox 98 02/11/25 10:42 O2 Del Method Room Air 02/11/25 10:42 Course Vital Signs Vital signs: Vital Signs Temperature 98.6 F 02/11/25 10:27 Pulse Rate 54 L 02/11/25 10:27 Respiratory Rate 18 02/11/25 10:27 Blood Pressure 162/101 H 02/11/25 10:27 Pulse Oximetry 99 02/11/25 10:27 Oxygen Delivery Method Room Air 02/11/25 10:27 Temperature 98.6 F 02/11/25 10:27 Pulse Rate 54 L 02/11/25 10:27 Respiratory Rate 18 02/11/25 10:27 Blood Pressure 162/101 H 02/11/25 10:27 Pulse Oximetry 98 02/11/25 10:42 Oxygen Delivery Method Room Air 02/11/25 10:42 MDM - Nausea/Vomiting/Diarrhea MDM Narrative Medical decision making narrative: I ordered peripheral IV to be established, blood drawn and sent for testing, urine to be sent for testing as well and for the patient to receive a liter of normal saline IV fluid along with IV Phenergan since the Zofran has not been working for her. WNC elevated at 12.2. Nomal hbm platelets elevated at 478. CMP unremarkable, except elevated total bili - direct bili is normal. UA reveals ketones but is otherwise without evidence of acute infection I reevaluated the patient at 1240 -she said that her nausea was only minimally improved and her pain had worsened. CT scan of the abdomen pelvis with IV contrast was ordered. She was also ordered to receive additional Phenergan and IV Dilaudid for pain. CT scan revealed no evidence of bowel or urinary tract obstruction, mild diverticulosis without diverticulitis, small adnexal cysts, some wall thickening but no mass or other worrisome findings. Patient informed of results. . Medical Records Attestation: I reviewed the patient's medical records. Lab Data Attestation: I reviewed the patient's lab results. Labs: Lab Results 02/11/25 02/11/25 02/11/25 Range/Units 10:41 10:45 11:06 WBC 12.2 H (4.0-11.0) 10^3/uL RBC 4.93 (4.20-5.40) 10^6/uL Hgb 14.9 (12.0-16.0) g/dL Hct 42.8 (36.0-48.0) % MCV 86.8 (81.0-99.0) fL MCH 30.2 (26.7-34.0) pg MCHC 34.8 (29.9-35.2) g/dL RDW 12.3 (11.0-15.0) % Plt Count 478 H (150-450) 10^3/uL MPV 10.7 (9.5-13.5) fL Neut % (Auto) 71.7 (43.0-75.0) % Lymph % (Auto) 19.7 L (20.5-60.0) % [place] % (Auto) 7.9 (1.7-12.0) % Eos % (Auto) 0.1 L (0.9-7.0) % Baso % (Auto) 0.2 (0.2-2.0) % Neut # (Auto) 8.8 H (1.4-6.5) 10^3/uL Lymph # (Auto) 2.4 (1.2-3.8) 10^3/uL [place] # (Auto) 1.0 H (0.3-0.8) 10^3/uL Eos # (Auto) 0.0 (0.0-0.7) 10^3/uL Baso # (Auto) 0.0 (0.0-0.1) 10^3/uL Abs Immat Gran (auto) 0.05 H (0.00-0.03) 10^3/uL Imm/Tot Granulo (auto) 0.4 (0.0-0.5) % Sodium 138 (136-145) mmol/L Potassium 3.0 L (3.5-5.1) mmol/L Chloride 101 (98-107) mmol/L Carbon Dioxide 24.1 (21.0-32.0) mmol/L Anion Gap 15.9 BUN 10.0 (7.0-18.0) mg/dL Creatinine 0.56 (0.55-1.02) mg/dL Est GFR ( Amer) >60 (>=60 mL/min/1.73m^2) Est GFR (Non-Af Amer) >60 (>=60 mL/min/1.73m^2) BUN/Creatinine Ratio 17.9 Glucose 105 (74-106) mg/dL Lactate 0.8 (0.4-2.0) mmol/L Calcium 9.0 (8.5-10.1) mg/dL Total Bilirubin 1.4 H (0.2-1.0) mg/dL Direct Bilirubin 0.3 H (0.0-0.2) mg/dL AST 16 (15-37) U/L ALT 14 (14-59) U/L Alkaline Phosphatase 61 (46-116) U/L Total Protein 7.6 (6.4-8.2) g/dL Albumin 4.1 (3.4-5.0) g/dL Globulin 3.5 g/dL Albumin/Globulin Ratio 1.2 Serum HCG, Qual Negative (NEGATIVE) Urine Color Yellow (YELLOW) Urine Clarity Cloudy A (CLEAR) Urine pH 8.5 (5.0-9.0) Ur Specific [place] 1.015 (1.005-1.025) Urine Protein Trace (NEG/TRACE) mg/dL Urine Glucose (UA) Negative (NEGATIVE) mg/dL Urine Ketones >=80 A (NEGATIVE) mg/dL Urine Occult Blood Negative (NEGATIVE) Urine Nitrite Negative (NEGATIVE) Urine Bilirubin Small A (NEGATIVE) Urine Urobilinogen 1.0 (0.2-1.0) EU/dL Ur Leukocyte Esterase Negative (NEGATIVE) Urine RBC 0-2 (0-2) #/HPF Urine WBC 0-2 A (NONE SEEN) #/HPF Ur Squamous Epith Cells Moderate A (NONE/RARE) #/LPF Urine Crystals None seen (None Seen) #/HPF Urine Bacteria Moderate A (NONE SEEN) #/HPF Urine Casts None seen (NONE SEEN) #/LPF Urine Mucus Trace A (NONE SEEN) Ur Culture Indicated? Yes-[facility] [place] [facility] [place] scan - abdomen: Radiologist's impression: ITS Impressions Abdomen/Pelvis CT 02/11/25 13:12 IMPRESSION: FATTY LIVER. NO BOWEL OR URINARY TRACT OBSTRUCTION. UNDER DISTENDED COLON WITH SEGMENTS OF APPARENT WALL THICKENING. MILD DIVERTICULOSIS. SMALL ADNEXAL CYSTS, DESCRIBED. NO ADDITIONAL ACUTE FINDINGS. Impression dictated by: Gladys Goodman M.D. 02/11/2025 1:50 PM Dictation Location: [place] [address] Electronically authenticated by: [id number] Y Date: 02/11/2025 13:50 Discharge Plan Discharge Chief Complaint: Nausea/Vomiting/Diarrhea Clinical Impression: Nausea and vomiting Patient Disposition: Home, Self-Care Time of Disposition Decision: 14:52 Prescriptions / Home Meds: New promethazine 25 mg tablet 25 mg PO Q6H PRN (Reason: nausea and vomiting) Qty: 14 0RF No Action dextroamphetamine-amphetamine 30 mg capsule,extended release 24hr 30 mg PO DAILY mirabegron [Myrbetriq] 50 mg tablet extended release 24 hr 50 mg PO Q24H ondansetron 4 mg tablet,disintegrating 4 mg PO DAILY PRN (Reason: nausea and vomiting) 3 Days Qty: 10 0RF Print Language: Indonesian Instructions: Acute Nausea and Vomiting (ED) Referrals: Sandra Granda HAND METHOD LASTING MACHINE OPERATOR [Primary Care Provider] - 1 week
[2025-02-11 10:55] LABS: Hematocrit 42.8 % (36.0-48.0); Hemoglobin 14.9 g/dL (12.0-16.0); Immature Granulocytes Abs Auto 0.05 10^3/uL (0.00-0.03); Immature Granulocytes Pct Auto 0.4 % (0.0-0.5); Lymphocytes Absolute Auto 2.4 10^3/uL (1.2-3.8); Mean Corpuscular HGB Conc 34.8 g/dL (29.9-35.2); Mean Corpuscular Hemoglobin 30.2 pg (26.7-34.0); Mean Corpuscular Volume 86.8 fL (81.0-99.0); Platelet Count 478 10^3/uL (150-450); Red Blood Count 4.93 10^6/uL (4.20-5.40); White Blood Count 12.2 10^3/uL (4.0-11.0)
[2025-02-11 10:58] LABS: Glucose Urine UA NEGATIVE (NEGATIVE)
[2025-02-11 11:12] LABS: Lactate/Lactic Acid 0.8 mmol/L (0.4-2.0)
[2025-02-11 11:14] LABS: Cast Seen? NONE SEEN #/LPF (NONE SEEN); Crystals Seen? None Seen #/HPF (None Seen); Urine Culture Indicated YES-FRMC
[2025-02-11] MEDS: PROMETHAZINE HCL 25 MG TABLET 12.5 MG PO (11:14)
[2025-02-11] MEDS: 0.9 % SODIUM CHLORIDE 1,000 ML 100 ML IV (11:14)
[2025-02-11 11:30] LABS: Alanine Aminotransferase 14 U/L (14-59); Albumin Globulin Ratio 1.2; Albumin Level 4.1 g/dL (3.4-5.0); Alkaline Phosphatase 61 U/L (46-116); Anion Gap 15.9; Aspartate Amino Transferase 16 U/L (15-37); Blood Urea Nitrogen 10.0 mg/dL (7.0-18.0); Calcium 9.0 mg/dL (8.5-10.1); Carbon Dioxide 24.1 mmol/L (21.0-32.0); Chloride 101 mmol/L (98-107); Estimated GFR (African America >60 (>=60 mL/min/1.73m^2); Estimated GFR (Non-African Ame >60 (>=60 mL/min/1.73m^2); Globulin 3.5 g/dL; Glucose 105 mg/dL (74-106); Potassium 3.0 mmol/L (3.5-5.1); Sodium 138 mmol/L (136-145); Total Protein 7.6 g/dL (6.4-8.2)
--- OUTSIDE RECORDS SUMMARY | 2025-02-11 11:30 | XMS_ITS | CCD ---
Author Organization [facility] Care Team Providers Care Mixing Plant Operator Name Role Phone Arie Parks Unavailable Unavailable [...] Bobby MD Primary Care Provider Jesus Alberto SPECIAL TRACKWORK BLACKSMITH, Sandra Unavailable La Nena Quintanilla DO Unavailable [place] [employer]WORK BLACKSMITH, Sandra Unavailable SANDRA GRANDA Attending Unavailable SANDRA [...] source) A & D Drug allergy Unknown Rep Other (1 source) bee venom Drug allergy (disorder) [facility] [place] [facility] Rep[facility] (1 source) A AND D Emollient Drug allergy (disorder) [facility] [place] [facility] (5 sources) Lanolin / Petrolatum Drug Allergy [facility] (3 sources) dimethicone / Zinc Oxide; Translations: [vitamin A & D topical] Drug Allergy Eruption of skin (disorder) [facility] Medications Current Medications Medication Drug Class(es) Dates [...] Daily, # 30 tab(s), Refills(s) 11, Pharmacy: [facility]/pharmacy #[id number], 160, cm, 12/31/24 9:10:00 EDT, Height/Length [...] procedure, # 2 tab(s), Refills(s) 0, Pharmacy: [facility]/pharmacy #[id number], 160, cm, 12/31/24 9:10:00 EDT, Height/Length [...] Richar STEELE MD, URL In [address] [facility] [place] [id number]- Additional Instructions: Patient Education Overactive Bladder, Adult [...] 07/24/1997 Record (more content not included)... Normal [facility] Comment on above: Result Comment: Elec tronically [...] cysto w/ pelvic exam Where: [address] [place] [address] Medications What How Much When Why Instructions New ciprofloxacin (Cipro 500 mg Tab) 1 Tablets By Mouth Every day take one tab day before procedure and one tab after procedure Pickup at [facility]/pharmacy #[id number] New mirabegron (mirabegron 50 mg oral tablet, extended release) 1 Tablets By Mouth Every day Mixed urinary incontinence Refills: 11 Pickup at [facility]/pharmacy #6177 Unchanged amphetamine-dextroamp hetamine (amphetamine-dextroam phetamine 30 mg oral tablet) 1 Tablets Contact prescribing physician if questions or concerns Unchanged valacyclovir (valacyclovir 500 mg Tab) 1 Tablets Contact prescribing physician if questions or concerns Pharmacy Information [facility]/pharmacy #[id number]: [address], [place] [id number] [phone] Allergies Protective Ointment with Vitamins A and [...] to c (more content not included)... Normal [facility] Ambulatory Visit Summary Ambulatory Visit Summary [...] cysto w/ pelvic exam Where: [address] [place] [address] Medications What How Much When Why Instructions New ciprofloxacin (Cipro 500 mg Tab) 1 Tablets By Mouth Every day take one tab day before procedure and one tab after procedure Pickup at [facility]/pharmacy #6177 New mirabegron (mirabegron 50 mg oral tablet, extended release) 1 Tablets By Mouth Every day Mixed urinary incontinence Refills: 11 Pickup at [facility]/pharmacy #6177 Unchanged amphetamine-dextroamp hetamine (amphetamine-dextroam phetamine 30 mg oral tablet) 1 Tablets Contact prescribing physician if questions or concerns Unchanged valacyclovir (valacyclovir 500 mg Tab) 1 Tablets Contact prescribing physician if questions or concerns Pharmacy Information [facility] #[id number]: [address], [place] [phone] Allergies Protective Ointment with Vitamins A and [...] c (more content not included)... Normal [facility] Ambulatory Visit Summary Ambulatory Visit Summary YOLANDA [...] exam Where: [address] [place] [address] Medications What How Much When Why Instructions New ciprofloxacin (Cipro 500 mg Tab) 1 Tablets By Mouth Every day take one tab day before procedure and one tab after procedure Pickup at [facility]/pharmacy #6126 New mirabegron (mirabegron 50 mg oral tablet, extended release) 1 Tablets By Mouth Every day Mixed urinary incontinence Refills: 11 Pickup at [facility]/pharmacy #6137 Unchanged amphetamine-dextroamp hetamine (amphetamine-dextroam phetamine 30 mg oral tablet) 1 Tablets Contact prescribing physician if questions or concerns Unchanged valacyclovir (valacyclovir 500 mg Tab) 1 Tablets Contact prescribing physician if questions or concerns Pharmacy Information [facility]/pharmacy #[id number]: [address], [place] [phone] Allergies Protective Ointment with Vitamins A and [...] to c (more content not included)... Normal [facility] Urology Office/Clinic Noteon 12-31-2024 Urology Office/Clinic Note [...] ER 50 mg qd. Rx sent to [facility] -Will schedule cystoscopy w/ pelvic exam. The [...] Contact Information RICHARD MORA, Richar Kent, URL [address] [place] [address] Additional Instructions: sched cysto w/ pelvic exam [...] Protein Urine Dipstick: Negative (12/31/24 09:07:00) Specific [place] Urine Dipstick: 1.025 (more content not included)... Normal [facility] Comment on above: Result Comment: Elec tronically Signed By: Richar STEELE MD\.br\Date and Time Signed: 12/31/24 09:45 EDT\.br\Electronically Co-Signed By: Ashley Allen.br\Date and Time Co-Signed: 12/31/24 09:43 EDT IGP,APTIMA HPV,AGE GDLNon AGE GDLN ACOG TESTING Note . [facility] Comment on above: TESTS RESULT FLAG [facility] REF [facility]ANGE [facility] Clinician Provided Cytology Information Source.............Vagina No. of containers..01 ThinPrep Vial Age Brad PICKETTOG Deidra... FLAG LEGEND: L-Low Normal,H-High Normal,LL-Alert Low,HH-Alert High <-Panic Low,>-Panic High,A-Abnormal,AA-Critical Abnormal Performed at: 01 =G [address] [address] Hailey Alatorre MD, HPV APTIMA Negative Negative [facility] Comment on above: This nucleic acid am plification test detects fourteen high- risk HPV types (16,18,31,33,35,39,45,51,52,56,58,59,66,68) without differentiation. Performed at: =[address] [id number] [employer] Utility: Hailey Alatorre MD, Phone: [phone] Performed at: - [address] [id number] [employer] Utility: Hailey Alatorre MD, Phone: [phone] IGP, APTIMA HPV, RFX 16/18,45 Note . [facility] Comment on above: TESTS RESULT [facility] REF [facility] DIAGNOSIS: 02 NEGATIVE FOR INTRAEPITHELIAL LESION OR MALIGNANCY. Specimen adequacy: 02 Satisfactory for evaluation. Performed by: 02 Kitty Downs Bridge Worker Apprentice ([facility]) . 02 Note: Note 02 The Pap [...] <-Panic Low,>-Panic High,A-Abnormal,AA-Critical Abnormal Performed at: [address] [address] Hailey Alatorre MD, SPATULA-ALONE VAGINA [facility] BI MAMMOGRAM SCREENING TOMOS YNTHESIS BILATERALon 10-10-2024 [...] (COVID-19) RNA NEAL+probe Ql (Unsp spec) - [facility] No Panel Informationon 02-06 FLU A - [facility] FLU B - [facility] Interpretation and review of laboratory results Normal [facility] XR WRIST RT MIN 3 Von 2022 [...] ELISEO PATEL Date: 2022-06-06 09:14 Normal [facility] [place] [facility] TESTOSTERONE, FREE,DIRECT, T OTALon 03-31-2022 Free Testosterone(Direct) 2.8 pg/mL Normal 0.0-4.2 [facility] Comment on above: Result Comment: Perf ormed at: BN Performed By: #### T ESTFRD #### [facility] [place] [facility] [address] [place] [address] [address] Jorge Munoz Testosterone [Mass/Vol] 32 ng/dL Normal 8-60 [facility] [place] [facility] Comment on above: Result Comment: Perf ormed at: CB Performed By: #### T ESTFRD #### [facility] [place] [facility] [address] [address] [address] Jorge Munoz CORTISOLon 03-30-2022 Cortisol 11.0 ug/dL Normal [facility] Comment on above: Result Comment: Rosalino isol AM 6.2 - 19.4 Cortisol PM 2.3 - 11.9 Performed By: #### C ORTISO #### [facility] [place] [facility] [address], [place] [address] Dr. Jorge Munoz ESTRONEon 03-30-2022 Estrone, Serum 116 pg/mL Normal 27-231 [facility] Comment on above: Result Comment: Rang e Adult (Premenopausal) 27 - 231 Menstrual Cycle (1-10 days) 19 - 149 Menstrual Cycle (11-20 days) 32 - 176 Menstrual Cycle (21-30 days) 37 - 200 Performed By: #### E STRONE #### [facility] [place] [facility] [address], [place] [address] Dr. Jorge Munoz DHEA-SULFATEon 03-28-2022 DHEA-Sulfate 229.0 ug/dL Normal 57.3-279.2 [facility] Comment on above: Performed By: #### D HEASUL ####[facility] [place] [facility] [address] [place] [id number]. Jorge Munoz ESTRADIOLon 03-28-2022 Estradiol 278.0 pg/mL Normal [facility] Comment on above: Result Comment: Adul t Female: Follicular phase 12.5 - 166.0 Ovulation phase 85.8 - 498.0 Luteal phase 43.8 - 211.0 Postmenopausal <6.0 - 54.7 1st trimester 215.0 - >4300.0 [place] ECLIA methodology Performed By: #### E STRADI ####[facility] [place] [facility] [address] [place] [id number]. Jorge Munoz PROGESTERONEon 03-28-2022 Progesterone 13.9 ng/mL Normal [facility] Comment on above: Result Comment: Foll icular phase 0.1 - 0.9 Luteal phase 1.8 - 23.9 Ovulation phase 0.1 - 12.0 First trimester 11.0 - 44.3 Second trimester 25.4 - 83.3 Third trimester 58.7 - 214.0 Postmenopausal 0.0 - 0.1 Performed By: #### P INGE #### [facility] [place] [facility] [address], [place] [address] Dr. Jorge Munoz SEX HORMONE-BINDING GLOBULIN on 03-28-2022 Sex Horm Binding Glob, Serum 66.0 nmol/L Normal 24.6-122.0 [facility] Comment on above: Performed By: #### S EXHBG #### [facility] [place] [facility] [address] [place] [address] Dr. Jorge Munoz VITAMIN D 25 OHon 03-27-2022 VIT D 25-OH 31.2 ng/mL Normal [facility] Comment on above: Performed By: #### V ITAD #### [facility] [place] [facility] [address] [place] [address] [address] Jorge Munoz VIT D RANGES SEE BELOW [facility] Comment on above: Result Comment: <20 ng/mL Vit D deficient 20 - <30 ng/mL Vit D insufficient 30 - 100 ng/mL Vit D sufficient >100 ng/mL Potential Toxicity Performed By: #### V ITAD #### [facility] [place] [facility] [address] [place] [address] Dr. Jorge Munoz PAP ACOG PANEL 2: 30 to 65on 10-19-2021 . . Normal [facility] Comment on above: Result Comment: Perf ormed at: WB Performed By: #### 4 [id number] #### [facility] [place] [facility] [address] [place] [address] Dr. Jorge Munoz Age Gdln ACOG Testing 30-65 Normal [facility] Comment on above: Performed By: #### 4 [id number] #### [facility] [place] [facility] [address] [place] [address] Dr. Jorge Munoz DIAGNOSIS: Comment Normal [facility] Comment on above: Result Comment: NEGA TIVE FOR INTRAEPITHELIAL LESION OR MALIGNANCY. Performed at: WB Performed By: #### 4 [id number] #### [facility] [place] [facility] [address] [place] [address] Dr. Jorge Munoz HPV Aptima Negative Normal Negative [facility] Comment on above: Result Comment: This nucleic acid amplification test detects fourteen high-risk HPV types (16,18,31,33,35,39,45,51,52,56,58,59,66,68) without differentiation. Performed at: =G Performed By: #### 4 [id number] #### [facility] [place] [facility] [address] [place] [address] Dr. Jorge Munoz Methodology: Comment Normal [facility] Comment on above: Result Comment: This liquid based ThinPrep(R) pap test was screened with the use of an image guided system. Performed at: WB Performed By: #### 4 [id number] #### [facility] [place] [facility] [address] [place] [address] Dr. Jorge Munoz Note: Comment Normal [facility] Comment on above: Result Comment: The Pap smear is a screening test designed to aid in the detection of premalignant and malignant conditions of the uterine cervix. It is not a diagnostic procedure and should not be used as the sole means of detecting cervical cancer. Both false-positive and false-negative reports do occur. . Performed at: WB Performed By: #### 4 [id number] #### [facility] [place] [facility] [address] [place] [address] Dr. Jorge Munoz Performed by: Comment Normal [facility] Comment on above: Result Comment: Alyson De La Cruz Process Control Technician (ASCP) Performed at: WB Performed By: #### 4 [id number] #### [facility] [place] [facility] [address] [place] [address] Dr. Jorge Munoz Specimen adequacy: Comment Normal [facility] Comment on above: Result Comment: Sati sfactory for evaluation. No endocervical component is identified. Performed at: WB Performed By: #### 4 [id number] #### [facility] [place] [facility] [address] [place] [address] Dr. Jorge Munoz ER URINE PROFILEon 2 Bilirubin Ql (U) Negative Normal NEGATIVE [facility] Comment on above: Performed By: #### Marvin HADDAD UMICRO #### [facility] [place] [facility] [address] [place] [address] Dr. Jorge Munoz Clarity (U) CLEAR Normal CLEAR [facility] Comment on above: Performed By: #### Marvin HADDAD UMICRO #### [facility] [place] [facility] [address] [place] [address] Dr. Jorge Munoz Color (U) LT. YELLOW Normal YELLOW [facility] Comment on above: Performed By: #### E ALAN HADDADICRO #### [facility] [place] [facility] [address] [place] [address] Dr. Jorge DYKES A micrscopic examination will be performed if indicated. Normal [facility] [place] [facility] Comment on above: Performed By: #### PATRICK BIRDRO #### [facility] [place] [facility] [address] [place] [address] Dr. Jorge Munoz Glucose Ql (U) Negative Normal NEGATIVE [facility] Comment on above: Performed By: #### Marvin HADDAD UMICRO #### [facility] [place] [facility] [address] [place] [address] Dr. Jorge Munoz Hemoglobin Ql (U) MODERATE Abnormal NEGATIVE [facility] Comment on above: Performed By: #### PATRICK BIRDRO #### [facility] [place] [facility] [address] [place] [address] Dr. Jorge Munoz Ketones Ql (U) Negative Normal NEGATIVE [facility] Comment on above: Performed By: #### PATRICK BIRDRO #### [facility] [place] [facility] [address] [place] [address] Dr. Jorge Munoz LEUKOCYTES TRACE Abnormal NEGATIVE [facility] Comment on above: Performed By: #### PATRICK BIRDRO #### [facility] [place] [facility] [address] [place] [address] Dr. Jorge Munoz Nitrite Ql (U) Negative Normal NEGATIVE [facility] Comment on above: Performed By: #### PATRICK BIRDRO #### [facility] [place] [facility] [address] [place] [address] Dr. Jorge Munoz pH (U) 6.0 [pH] Normal 5-9 [facility] [place] [facility] Comment on above: Performed By: #### PATRICK BIRDRO #### [facility] [place] [facility] [address] [place] [address] Dr. Jorge Munoz SPEC GRAVITY 1.025 Normal 1.005-<=1.025 [facility] Comment on above: Performed By: #### PATRICK BIRDRO #### [facility] [place] [facility] [address] [place] [address] Dr. Jorge Munoz UA PROTEIN Negative Normal NEGATIVE/ TRACE [facility] [place] [facility] Comment on above: Performed By: #### E RUR, UMICRO #### [facility] [place] [facility] [address] [place] [address] Dr. Jorge Munoz UR MICRO IND INDICATED Normal [facility] [place] [facility] Comment on above: Performed By: #### E RUR, UMICRO #### [facility] [place] [facility] [address] [place] [address] Dr. Jorge Munoz Urobilinogen Qn (U) 0.2 {Darren'U}/dL Normal 0.2 - 1. 0 [facility] [place] [facility] Comment on above: Performed By: #### E RUR, UMICRO #### [facility] [place] [facility] [address] [place] [address] Dr. Jorge Munoz URINE MICROSCOPIC ONLYon BACTERIA NONE SEEN Normal NONE SEEN [facility] [place] [facility] Comment on above: Performed By: #### E RUR UMICRO #### [facility] [place] [facility] [address] [place] [address] Dr. Jorge Munoz Bacteria identified Cx Nom (U) NOT INDICATED Normal [facility] [place] [facility] Comment on above: Performed By: #### E EKATERINAR, UMICRO #### [facility] [place] [facility] [address] [place] [address] Dr. Jorge Munoz CAST NONE SEEN Normal NONE SEEN [facility] [place] [facility] Comment on above: Performed By: #### E RUR, UMICRO #### [facility] [place] [facility] [address] [place] [address] Dr. Jorge Munoz Crystals LM Nom (Urine sed) NONE SEEN Normal NONE SEEN [facility] [place] [facility] Comment on above: Performed By: #### E RUR, UMICRO #### [facility] [place] [facility] [address] [place] [address] Dr. Jorge Munoz Epithelial cells LM Ql (Urine sed) MANY Abnormal NONE SEEN /RARE [facility] [place] [facility] Comment on above: Performed By: #### E RUR, UMICRO #### [facility] [place] [facility] [address] [place] [address] Dr. Jorge Munoz MUCOUS TRACE Abnormal NONE SEEN [facility] [place] [facility] Comment on above: Performed By: #### E PATRICK HADDADRO #### [facility] [place] [facility] [address], [place] [address] Dr. Jorge Munoz RBC 20-50 Abnormal 0-2 [facility] Comment on above: Performed By: #### ALAN BIRDICRO #### [facility] [place] [facility] [address], [place] [address] Dr. Jorge Munoz WBC 0-2 Abnormal NONE SEEN [facility] Comment on above: Performed By: #### Marvin HADDAD UMICRO #### [facility] [place] [facility] [address], [place] [address] Dr. Jorge Munoz Vital Signs Date Time Vital Sign Value Performing Clinician Facility 12-03-2024 14:00-0400 Body mass index (BMI) [Ratio] 32.19 kg/m2 Sandra Granda [employer] TR[employer]WORK BLACKSMITH Work Phone: [facility] 12-03-2024 14:00-0400 Body weight 79.83 kg Sandra Granda [employer]WORK BLACKSMITH Work Phone: [facility] 12-03-2024 14:00-0400 Diastolic blood pressure 78 mm[Hg] Sandra Granda [employer] Work Phone: [facility] 12-03-2024 14:00-0400 Heart rate 76 /min Sandra Granda [employer] Work Phone: [facility] 12-03-2024 14:00-0400 SaO2% (BldA) [Mass fraction] 95 % Sandra Granda [employer]ITH Work Phone: [facility] 12-03-2024 14:00-0400 Systolic blood pressure 114 mm[Hg] Sandra Granda [employer] BL[employer]SMITH Work Phone: [facility] 07-04-2024 14:35-0400 Body mass index (BMI) [Ratio] 32.04 kg/m2 Sandra Granda [employer] Work Phone: [facility] 07-04-2024 14:35-0400 Body temperature 97.2 [degF] Sandra Paredespatricia [employer]SMITH Work Phone: [facility] 07-04-2024 14:35-0400 Body weight 79.47 kg Sandra Granda [employer] Work Phone: [facility] 07-04-2024 14:35-0400 Diastolic blood pressure 84 mm[Hg] Sandra Granda [employer]WORK BL[employer]SMITH Work Phone: [facility] 07-04-2024 14:35-0400 Systolic blood pressure 128 mm[Hg] Sandra Granda [employer]WORK BLACKSMITH Work Phone: [facility] 02-07-2024 14:33-0400 Body height 157.5 cm Sandra Granda [employer]WORK BL[employer]SMITH Work Phone: [facility] 02-07-2024 14:33-0400 Body mass index (BMI) [Ratio] 32.41 kg/m2 Sandra Granda [employer]SMITH Work Phone: [facility] 02-07-2024 14:33-0400 Body temperature 98.2 [degF] Sandra Granda [employer] TR[employer]WORK BLACKSMITH Work Phone: [facility] 02-07-2024 14:33-0400 Body weight 80.38 kg Sandra Granda [employer]WORK BL[employer]SMITH Work Phone: [facility] 02-07-2024 14:33-0400 Diastolic blood pressure 80 mm[Hg] Sandra Granda [employer]WORK BL[employer]SMITH Work Phone: [facility] 02-07-2024 14:33-0400 Heart rate 78 /min Sandra Granda [employer]WORK BL[employer]SMITH Work Phone: [facility] 02-07-2024 14:33-0400 SaO2% (BldA) [Mass fraction] 97 % Sandra Granda [employer]ITH Work Phone: [facility] 02-07-2024 14:33-0400 Systolic blood pressure 120 mm[Hg] Sandra Granda [employer]ITH Work Phone: [facility] 12-13-2023 17:28-0400 Diastolic blood pressure 80 mm[Hg] Sandra Granda [employer] Work Phone: [facility] 12-13-2023 17:28-0400 Systolic blood pressure 130 mm[Hg] Sandra Granda [employer] Work Phone: [facility] 12-13-2023 17:21-0400 Body height 157.5 cm Sandra Granda [employer] Work Phone: [facility] 12-13-2023 17:21-0400 Body mass index (BMI) [Ratio] 32.12 kg/m2 Sandra Granda [employer] Work Phone: [facility] 12-13-2023 17:21-0400 Body weight 79.65 kg Sandra Granda [employer] Work Phone: [facility] 12-13-2023 17:21-0400 Heart rate 76 /min Sandra Granda [employer] Work Phone: [facility] 12-13-2023 17:21-0400 SaO2% (BldA) [Mass fraction] 99 % Sandra Granda [employer]WORK [employer]SMITH Work Phone: [facility] 01-20-2021 14:15-0400 Body height Danny Olexa Other [employer] [facility] Yumber Other 01-20-2021 14:15-0400 Body mass index (BMI) [Ratio] 26.45 kg/m2 Danny Olexa Other Rep Other 01-20-2021 14:15-0400 Body weight 63.5 kg Danny Olexa Other Rep Other Encounters Encounter Date Encounter Type Care Provider Facility Start: 01-25-2025 End: 01-25-2025 Dawit Bobby MD Work Phone: [facility] Comment on above: ADHD (attention defi cit hyperactivity disorder), inattentive type Start: 01-22-2025 End: 01-22-2025 ambulatory Richar STEELE Facility:[facility] Start: 01-22-2025 End: 01-22-2025 Patient encounter procedure Richar STEELE [facility] Start: 01-22-2025 ambulatory Richar STEELE Facili ty:[id number] Start: 12-31-2024 End: 12-31-2024 ambulatory Richar STEELE Facility:[facility] Start: 12-31-2024 End: 12-31-2024 Patient encounter procedure Richar STEELE [facility] Start: 12-26-2024 End: 12-26-2024 Dawit Bobby MD Work Phone: [facility] Comment on above: ADHD (attention defi cit hyperactivity disorder), inattentive type Start: 12-07-2024 ambulatory Richar STEELE [facility] Start: 12-06-2024 End: 12-06-2024 Bamboo [...] 12-03-2024 End: 12-03-2024 Bamboo flowsheet Sandra Granda [employer] Work Phone: [facility] Start: 12-03-2024 End: 12-03-2024 Bamboo flowsheet Sandra Granda [employer] Work Phone: [facility] Start: 12-03-2024 End: 12-03-2024 Office outpatient visit 15 minutes Sandra Youngashleepatricia [employer]ITH Work Phone: [facility] Comment on above: ADHD (attention defi cit [...] 08-23-2024 End: 08-31-2024 Refill Sandra Jesus Alberto [employer] Work Phone: [facility] Comment on [...] End: 07-04-2024 Patient encounter status Sandra Granda [employer] Work Phone: [facility] Work Phone: Start: 07-04-2024 End: 07-04-2024 Periodic preventive med est patient 18-39 yrs Sandra Granda [employer] Work Phone: [facility] Comment on above: Encounter for wellne ss examination (Primary Dx); Breast screening; Screening, lipid; Obesity (BMI 30.0-34.9); Encounter for screening mammogram for malignant neoplasm of breast; Attention deficit hyperactivity disorder (ADHD), unspecified ADHD type (CMS/HCC) Start: 07-04-2024 End: 07-04-2024 Bamboo flowsheet Sandra Granda [employer] Work Phone: [facility] [facility] Start: 07-04-2024 End: 07-04-2024 Bamboo flowsheet Sandra Granda [employer] Work Phone: [facility] Start: 07-04-2024 End: 07-05-2024 Refill Sandra Granda [employer] Work Phone: [facility] Comment on [...] Start: 02-10-2024 End: 02-13-2024 Refill Sandra Granda [employer] Work Phone: [facility] Comment on above: ADHD (attention defi cit hyperactivity disorder), inattentive type (CMS/HCC) Start: 02-07-2024 End: 02-07-2024 Office outpatient visit 15 minutes Sandra Granda [employer] Work Phone: [facility] Comment on above: Nasal congestion (Pr imary Dx); Acute non-recurrent pansinusitis Start: 02-07-2024 End: 02-07-2024 ambulatory SANDRA GRANDA Not Available Start: 02-07-2024 End: 02-07-2024 Bamboo flowsheet Sandra Granda [employer] Work Phone: [facility] Start: 02-07-2024 End: 02-07-2024 Bamboo flowsheet Sandra Granda [employer] Work Phone: [facility] Start: 01-13-2024 End: 01-13-2024 Telephone encounter Angie Bobby MD Work Phone: [facility] Start: 12-19-2023 End: 12-19-2023 Telephone encounter Angie Bobby MD Work Phone: [facility] Start: 12-13-2023 End: 12-13-2023 Office outpatient visit 25 minutes Sandra Granda [employer] Work Phone: [facility] Comment on above: ADHD (attention defi cit hyperactivity disorder), inattentive type (CMS/HCC) (Primary Dx); Obesity (BMI 30.0-34.9) Start: 12-13-2023 End: 12-13-2023 ambulatory SANDRA GRANDA Not Available Start: 12-13-2023 End: 12-13-2023 Bamboo flowsheet Sandra Jesus Alberto [employer] Work Phone: [facility] Start: 12-13-2023 End: 12-13-2023 Bamboo flowsheet Sandra Youngleland [employer] Work Phone: [facility] Start: 09-04-2022 [...] Start: 08-25-2017 End: 08-26-2017 Ambulatory [facility] Facility:[id number] Procedures Date Procedure Procedure Detail Performing Clinician Start: 01-22-2025 Cystoscopy and biops y of bladder Richar STEELE Start: 12-06-2024 IGP,APTIMA HPV,AGE GDLN Yossi Lawton DO Work Phone: Start: 10-10-2024 Mammography Angie cook MD Work Phone: Start: 02-07-2024 STATUS COVID-19/FLU Shantell mayen Jesus Alberto [employer] Work Phone: Start: 12-23-2022 H/O: hysterectomy S/P hysterectomy S didier Granda NP Work Phone: H/O: hysterectomy Richar LAY History of tonsillectomy Nola STEELE Ligation of fallopian tube P lizbeth STEELE Plan of Treatment Date Care Activity Detail Author Start: 12-10-2025 End: 12-10-2025 Patient encounter procedure 12/10/2025 10:00 AM EDT Procedure Visit [facility] [address] [place] [address] Yossi Lawton, DO [address] [place] [address] [facility] Start: 10-10-2025 Screening for malign ant neoplasm of breast Mammogram [facility] Start: 12-24-2024 Influenza vaccination [facility] Start: 12-06-2024 End: 12-06-2024 Patient encounter procedure [facility] Comment on above: Arrived Start: 10-22-2024 Influenza vaccination Influenza Vacc ine (#1) [facility] Comment on above: Postponed from 12/24 (Supply/Drug Shortage) Start: 10-10-2024 End: 10-10-2024 Professional / ancillary services management 10/10/2024 9:00 AM EDT Ancillary Procedure [facility] [place] [facility] [address] [place] [phone] [facility] [place] [facility] Start: 2024 End: 09-03-2025 [...] EDT Office Visit [facility] [address] [place] [phone] Yossi Lawton, DO [address] [place], [place] [phone] [facility] Start: 07-04-2024 End: 07-04-2024 Patient encounter procedure 07/04/2024 2:30 PM EDT Office Visit [facility] [address] [place] [address] Sandra Granda NP [address] [place] [address] Arrived [facility] Comment on above: [...] deficit hyperactivity disorder (ADHD), unspecified ADHD type ([facility]) Expected: 07/04/2024 (Approximate), Expires: 07/04/2025 [facility] [...] PM EDT Office Visit [facility] [address] [place] [phone] Sandra Granda, AIDEE [address] [place] [facility] [place] [address] Arrived [facility] Comment on above: Arrived Start: 12-25-2023 Influenza vaccination Influenza Vacc ine (#1) [facility] Start: 12-13-2023 End: 12-13-2023 Patient encounter procedure 12/13/2023 5:30 PM EDT Office Visit [facility] [address] [place] [phone] Sandra Granda, AIDEE [address] [facility], [place] [phone] Arrived [facility] Comment on above: Arrived THIN PREP TIS PAP AN D HR HPV DNA THIN PREP TIS PAP AND HR HPV DNA Pathology and Cytology Routine Well woman exam with routine gynecological exam Ordered: 12/06/2024 [facility] Work Phone: Comment on above: Ordered: 12/06/2024 Immunizations Immunization Date Immunization Notes Care Provider Sharmila jiménez 07-24-1998 measles, mumps and rubella virus vaccine Richar STEELE [facility] Payers Date Payer Category Payer Medicaid [id number] 2018 Medicaid (Managed Care) [facility] MEDICAID [id number] 1984 Unknown [id number] [id number]. 593 1984 Unknown [id number] 2.16.840.1.209770.3.579.2. 593 1984 Unknown [id number] 2.16.840.1.665672.3.579.2. 593 1984 Unknown [id number] 2.16.840.1.156367.3.579.2. 593 1984 Unknown [id number] 2.16.840.1.042220.3.579.2. 593 1984 Unknown [id number] 2.16.840.1.728469.3.579.2. 1259 1984 Unknown [id number] 2.16.840.1.499664.3.579.2. 1259 1984 Unknown [id number] 2.16.840.1.580920.3.579.2. 1259 1984 Unknown [id number] 2.16.840.1.489314.3.579.2. 1259 1984 Unknown [id number] 2.16.840.1.910607.3.579.2. 1259 1984 Unknown [id number] 2.16.840.1.381942.3.579.2. 1259 1984 Unknown [id number] 2.16.840.1.969406.3.579.2. 727 1984 Unknown [id number] [id number]. 727 1959 Unknown [id number] Social History Date Type Detail Facility Start: 02-07-2024 End: 12-03-2024 Sex Assigned At Rep Other Start: 06-14-2023 End: 12-13-2023 Tobacco smoking status NHIS Ex-smoker [facility] End: 04-25-2017 History of tobacco use Current smoker [facility] End: 04-25-2017 History of tobacco use Cigarette Smoker [facility] Start: 06-14-2023 End: 12-13-2023 Tobacco use and exposure Smokeless tobacco non-user [facility] Start: 02-07-2024 End: 12-06-2024 Alcoholic beverage intake Ex-drinker (finding) [facility] Start: 02-07-2024 End: 12-03-2024 History of Social function [facility] Start: 09-13-2023 End: 02-07-2024 Alcohol Comment caffeine intake: [facility] Start: 1985 Sex assigned at Not on file [facility] Start: 12-13-2023 Alcohol Comment caffeine intake:1 -2 energy drinks weekly. [facility] Start: 07-04-2024 Alcohol Comment caffeine intake: occassionally [facility] Start: 12-31-2024 End: 01-22-2025 Tobacco smoking status Never smoked tobacco (finding) [facility] Tobacco smoking status Never [facility] Sexual Orientation [facility] Start: 03-02-2022 Sex Female (finding) [facility] Functional Status Date Assessment Result Facility 12-03-2024 Patient Health Quest ionnaire 2 item (PHQ-2) [Reported] [facility] Clinical Notes 01-20-2021 to 01-22-2025 Telephone Encounter [...] your health care provider. General instructions Take cucc-qvp-zqppjde and prescription medicines only as told by [...] provider. Document Revised: 12/29/2020 Document Reviewed: 12/29/2020 [employer] Patient Education 2023 Nicholas Haddox Records. Follow Up Care 01/22/2025 07:43:26 With:RICHARD MORA, Richar Kent, URL Address: [address] [place], [place] [phone]- When:Within 6 Month(s) [facility] [place] 01-22-2025 Note Patient Education Obstetrics and Gynecology [...] health care provider. General instructions ??? Take kdxl-ukx-rjcbozv and prescription medicines only as told by [...] drink, and whe (more content not included)... [facility] 12-31-2024 Hospital Discharg e instructions Patient Education [...] your health care provider. General instructions Take ikug-fgm-ntazjvw and prescription medicines only as told by [...] provider. Document Revised: 12/29/2020 Document Reviewed: 12/29/2020 [employer] Patient Education 2023 [employer] 12/31/2024 09:40:53 Cystoscopy Cystoscopy Cystoscopy is [...] including vitamins, herbs, eye drops, creams, and yivu-yvv-dqngdca medicines. Any problems you or family members [...] provider tells you to take them. Taking cdlm-wlq-oohxbyh medicines, vitamins, herbs, and supplements. Tests You [...] Follow these instructions at home: Medicines Take wpwr-atz-smfsbbr and prescription medicines only as told by [...] provider. Document Revised: 12/23/2021 Document Reviewed: 11/21/2020 [employer] Patient Education 2023 Nicholas Haddox Records. Follow Up Care 12/07/2024 13:35:47 With:RICHARD MORA, Richar Kent, URL Address: [address] [place] [phone] When: Unknown Comments:sched cysto w/ pelvic exam [facility] 12-31-2024 Note Patient Education Obstetrics and Gynecology [...] health care provider. General instructions ??? Take bzqq-yxg-foccpyu and prescription medicines only as told by [...] drink, and whe (more content not included)... [facility] 12-26-2024 Telephone encounter Note Refill request [facility] 12-26-2024 Miscellaneous Notes Refill request documented in this encounter [facility] 12-06-2024 History of Presen t illness Narrative [...] nursing note reviewed. Exam conducted with a freight booker present. Vitals: Estimated body mass index is [...] needed otherwise. Patient to be referred to [facility] for urinary leakage. Documented by Sangeetha Baldwin LPN on behalf of: Yossi Lawton DO documented in this encounter [facility] 12-03-2024 History of Presen t illness Narrative [...] she no longer has a uterus. 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 She says she switches it up when it feels her body gets too used to it. [facility] 09-28-2024 Miscellaneous Notes She wants to know if you can switch it to the extended release? She says she switches it up when it feels her body gets too used to it. documented in this encounter [facility] 08-31-2024 Telephone encounter Note Pharmacy and dosage correct [facility] 08-31-2024 Miscellaneous Notes Pharmacy and dosage correct Pt saw you in June and said discussed weight issues, but didn't want injections due to pricing. But is now interested in trying weight loss injection whichever would be cheapest. documented in this encounter [facility] 08-23-2024 Telephone encounter Note Pt saw you in June and said discussed weight issues, but didn't want injections due to pricing. But is now interested in trying weight loss injection whichever would be cheapest. [facility] 07-05-2024 Telephone encounter Note Also wants to discuss lab results. [facility] 07-05-2024 Miscellaneous Notes Also wants to discuss lab results. documented in this encounter [facility] 07-04-2024 History of Presen t illness Narrative [...] manage symptoms. documented in this encounter [facility] 02-07-2024 History of Presen t illness Narrative [...] further evaluation. documented in this encounter [facility] 01-13-2024 Telephone encounter Note Pt says she doesn't need it until 01/16 [facility] 01-13-2024 Miscellaneous Notes Pt says she doesn't need it until 01/16 documented in this encounter [facility] 12-13-2023 History of Presen t illness Narrative [...] keep active documented in this encounter [facility] 01-20-2021 Evaluation note Encounter Date Diagnosis Assessment [...] treatment, may consider MRI for further evaluation. Rep Other Evaluation + Plan note No data available for this section [facility] evaluation note* Diagnosis ADHD (attention deficit hyperactivity [...] History childbirth Hospitalization History see surgical hx Rep Other Progress note No data available for this section [facility] Family History No Family [...] ADHD (attention deficit hyperactivity disorder), inattentive type ([facility]/HCC) Sandra Granda NP [address] [place] [address] Referral ID Status Reason Start Date Expiration Date Visits Re quested Visits Authorized [id number] Closed 1 1 Additional Source Comments INFORMATION SOURCE (unrecogn ized section and content) DATE CREATED AUTHOR 10/13/2017 [facility] DATE CREATED AUTHOR AUTHOR'S ORGANIZ ATION 09/06/[address] [facility] DATE CREATED AUTHOR AUTHOR'S ORGANIZ ATION 12/07/2024 [facility] EPIC DATE CREATED AUTHOR AUTHOR'S ORGANIZ ATION 01/27/2025 [facility] [employer] [facility] REASON FOR VISIT (unrecogniz ed section and content) Reason Comments URI Sx started . Reason Onset Date Comments Med Refill 02/10/2024 Reason Comments ADHD Reason Comments Annual Exam Reason Onset Date Comments Med Refill 07/04/2024 Reason Comments Med Refill Reason Comments [facility] Women Visit Care Teams (unrecognized sec tion and content) Mixing Plant Operator Relationship Specialty Start Date End Date Angie Bobby MD [address] [place] [address] PCP - General Family Medicine 05/31/23 La Nena Quintanilla DO [address] [place] [address] PCP - [facility] 07/25/23 Sandra Granda NP [address] [place] [address] Nurse Practitioner Family Medicine 05/31/23 Mixing Plant Operator Relationship Specialty Start Date End Date Angie Bobby MD [address] [place] [address] PCP - General Family Medicine 05/31/23 La Nena Quintanilla DO [address] [place] [address] PCP - [facility] 07/25/23 Sandra Granda NP [address] [place] [address] Nurse Practitioner Family Medicine 05/31/23 Mixing Plant Operator Relationship Specialty Start Date End Date Angie Bobby MD [address] [place] [address] PCP - General Family Medicine 05/31/23 La Nena Quintanilla DO [address] [place] [address] PCP - [facility] 07/25/23 Sandra Granda NP [address] [place] [address] Nurse Practitioner Family Medicine 05/31/23 Mixing Plant Operator Relationship Specialty Start Date End Date Angie Bobby MD [address] [place] [address] PCP - General Family Medicine 05/31/23 Sandra Granda NP [address] [place] [address] PCP - [facility] 01/24/24 Sandra Granda NP [address] [place] [address] Nurse Practitioner Family Medicine 05/31/23 Mixing Plant Operator Relationship Specialty Start Date End Date Angie Bobby MD [address] [place] [address] PCP - General Family Medicine 05/31/23 La Nena Quintanilla DO [address] [place] [address] PCP - [facility] 07/25/23 Sandra Granda NP [address] [place] [address] Nurse Practitioner Family Medicine 05/31/23 Mixing Plant Operator Relationship Specialty Start Date End Date Angie Bobby MD [address] [place] [address] PCP - General Family Medicine 05/31/23 La Nena Quintanilla DO [address] [place] [address] PCP - [facility] 07/25/23 Sandra Granda NP [address] [place] [address] Nurse Practitioner Family Medicine 05/31/23 Mixing Plant Operator Relationship Specialty Start Date End Date Angie Bobby MD [address] [place] [address] PCP - General Family Medicine 05/31/23 La Nena Quintanilla DO [address] [place] [address] PCP - [facility] 07/25/23 Sandra Granda NP [address] [place] [address] Nurse Practitioner Family Medicine 05/31/23 Mixing Plant Operator Relationship Specialty Start Date End Date Angie Bobby MD [address] [place] [address] PCP - General Family Medicine 05/31/23 Sandra Granda NP [address] [place] [address] PCP - [facility] 01/24/24 Sandra Granda NP [address] [place] [address] Nurse Practitioner Family Medicine 05/31/23 Mixing Plant Operator Relationship Specialty Start Date End Date Angie Bobby MD [address] [place] [address] PCP - General Family Medicine 05/31/23 Sandra Granda NP [address] [place] [address] PCP - [facility] 01/24/24 Sandra Granda NP [address] [place] [address] Nurse Practitioner Family Medicine 05/31/23 Mixing Plant Operator Relationship Specialty Start Date End Date Angie Bobby MD [address] [place] [address] PCP - General Family Medicine 05/31/23 Sandra Granda, AIDEE [address] [place] [address] PCP - [facility] 01/24/24 Sandra Granda, AIDEE [address] [place] [address] Nurse Practitioner Family Medicine 05/31/23 Mixing Plant Operator Relationship Specialty Start Date End Date Angie Bobby MD [address] [place] [address] PCP - General Family Medicine 05/31/23 Sandra Granda NP [address] [place] [address] PCP - [facility] 01/24/24 Sandra Granda, AIDEE [address] [place] [address] Nurse Practitioner Family Medicine 05/31/23 Mixing Plant Operator Relationship Specialty Start Date End Date Angie Bobby MD [address] [place] [address] PCP - General Family Medicine 05/31/23 Sandra Granda, AIDEE [address] [place] [address] PCP - [facility] 01/24/24 Sandra Granda NP [address] [place] [address] Nurse Practitioner Family Medicine 05/31/23 Mixing Plant Operator Relationship Specialty Start Date End Date Angie Bobby MD [address] [place] [address] PCP - General Family Medicine 05/31/23 Sandra Granda NP [address] [place] [address] PCP - [facility] 01/24/24 Sandra Granda NP [address] [place] [address] Nurse Practitioner Family Medicine 05/31/23 Mixing Plant Operator Relationship Specialty Start Date End Date Angie Bobby MD [address] [place] [address] PCP - General Family Medicine 05/31/23 Sandra Granda NP [address] [place] [address] PCP - [facility] 01/24/24 Sandra Granda NP [address] [place] [address] Nurse Practitioner Family Medicine 05/31/23 Mixing Plant Operator Relationship Specialty Start Date End Date Angie Bobby MD [address] [place] [address] PCP - General Family Medicine 05/31/23 Sandra Granda NP [address] [place] [address] PCP - [facility] 01/24/24 Sandra Granda NP [address] [place] [address] Nurse Practitioner Family Medicine 05/31/23 Mixing Plant Operator Relationship Specialty Start Date End Date Angie Bobby MD [address] [place] [address] PCP - General Family Medicine 05/31/23 Sandra Garnda NP [address] [place] [address] PCP - [facility] 01/24/24 Sandra Granda NP [address] [place] [address] Nurse Practitioner Family Medicine 05/31/23 Mixing Plant Operator Relationship Specialty Start Date End Date Angie Bobby MD [address] [place] [address] PCP - General Family Medicine 05/31/23 Sandra Granda NP [address] [place] [address] PCP - [facility] 01/24/24 Sandra Granda NP [address] [place] [address] Nurse Practitioner Family Medicine 05/31/23 Mixing Plant Operator Relationship Specialty Start Date End Date Angie Bobby MD [address] [place] [address] PCP - General Family Medicine 05/31/23 Sandra Granda NP [address] [place] [address] PCP - [facility] 01/24/24 Sandra Granda NP [address] [place] [address] Nurse Practitioner Family Medicine 05/31/23 Mixing Plant Operator Relationship Specialty Start Date End Date Angie Bobby MD [address] [place] [address] PCP - General Family Medicine 05/31/23 Sandra Granda NP [address] [place] [address] PCP - [facility] 01/24/24 Sandra Granda NP [address] [place] [address] Nurse Practitioner Family Medicine 05/31/23 Mixing Plant Operator Relationship Specialty Start Date End Date Angie Bobby MD [address] [place] [address] PCP - General Family Medicine 05/31/23 Sandra Granda NP [address] [place] [address] PCP - [facility] 01/24/24 Sandra Granda NP [address] [place] [address] Nurse Practitioner Family Medicine 05/31/23 FOR RECORDS [...] BE BASED ON THE PRIMARY CLINICAL RECORDS. [facility] [employer] [facility] provides no warranty or guarantee of the accuracy or completeness of information in this document.
[2025-02-11] MEDS: PROMETHAZINE HCL 12.5 MG in 0.9 % SODIUM CHLORIDE 50 ML 202 MG IV (13:03)
--- NOTE | 2025-02-11 13:12 | CT_ITS ---
The [address] [address] Patient Name: YOLANDA WILL MRN: [id number] date: 1985 Sex: F Assigned Patient Location: ER Current Patient Location: Accession/Order Number: [id number] Exam Date: 02/11/2025 13:06 Report Date: 02/11/2025 13:50 At the request of: GERSON SPANGLER Procedure: CT abdomen pelvis w con CT ABDOMEN AND PELVIS WITH CONTRAST CLINICAL DATA: Lower flank and back pain with nausea and vomiting. COMPARISON: None Spiral images were obtained through the abdomen and pelvis following 100 mL of Omnipaque 300. This CT exam was performed using one or more following dose reduction techniques: Automated exposure control, adjustment of the mA and/or kV according to patient size, or use of iterative reconstruction technique. Limited cuts through the lung bases show a right lower lobe calcified granuloma. Mild fatty infiltration of the liver is suspected. No calcified gallstones are seen. The spleen, pancreas and adrenal glands show no acute findings. There are symmetric renal nephrograms, without hydronephrosis. The abdominal aorta is normal caliber. Tiny lymph nodes are visualized. No ascites is seen. There is fluid within the stomach. Small bowel loops are normal caliber. There is minimal colonic stool and segments of colon which are under distended and have apparent wall thickening. There are some left-sided colonic diverticula. Subtle levoscoliotic curvature is noted. Images through the pelvis show no appendiceal inflammation. There are no dilated small bowel loops. The distal colon is decompressed. There are a few additional colonic diverticula, without associated active inflammation. The uterus is surgically absent. There are small cystic areas within both ovaries measuring up to just over 2 cm in size. The left has an enhancing irregular wall and could be an involuting corpus luteum of menstruation. The urinary bladder is not well-distended however no CT abnormalities are visualized. No ascites is seen. CT/CT abdomen pelvis w con IMPRESSION: FATTY LIVER. NO BOWEL OR URINARY TRACT OBSTRUCTION. UNDER DISTENDED COLON WITH SEGMENTS OF APPARENT WALL THICKENING. MILD DIVERTICULOSIS. SMALL ADNEXAL CYSTS, DESCRIBED. NO ADDITIONAL ACUTE FINDINGS. Impression dictated by: Gladys Goodman M.D. 02/11/2025 1:50 PM Dictation Location: [place] [address] Electronically authenticated by: [id number] Y Date: 02/11/2025 13:50
[2025-02-11] MEDS: HYDROMORPHONE HCL 1 MG/ML CARTRIDGE IVP (13:17)
== END 2025-02-11 15:03 | disposition home or self-care (01) ==
PROVIDERS: Emergency Provider Emergency Medicine; PCP Nurse Practitioner Family
DX: R11.2 Nausea with vomiting, unspecified (principal); K57.90 Diverticulosis of intestine, part unspecified, without perforation or abscess without bleeding
CPT/HCPCS: 36415; 74177; 80053; 81001; 82248; 83605; 84703; 85025; 87086; 96361; 96365; 96375; 99285; J1171; J2550; Q0169; Q9967